=== PATIENT | male | born 1950 | race African-American/Black ===

== ENCOUNTER 2016-11-20 12:45 | Observation (INO) | payer OTHER ==
[2016-11-20 12:57] VITALS: BMI 28.4
--- NOTE | 2016-11-20 14:23 | PDOC ---
History of Present Illness - General Chief Complaint: Pain Stated Complaint: SWOLLEN RT HAND/ FEET Time Seen by Provider: 11/20/16 13:56 Past History - Past Medical History Allergies/Adverse Reactions: Allergies Allergy/AdvReac Type Severity Reaction Status Date / Time Penicillins Allergy Vomiting Verified 11/20/16 12:58 Home Medications: Ambulatory Orders Cholecalciferol (Vitamin D3) [Vitamin D3 -] 1,000 unit PO DAILY 03/14/16 Amlodipine Besylate/Benazepril [Lotrel 5-40 mg Capsule] 1 each PO DAILY Atorvastatin Ca [Lipitor] 40 mg PO DAILY 03/19/16 Colchicine 0.6 mg PO DAILY 03/19/16 Lisinopril 5 mg PO DAILY 03/19/16 Multivitamins [Tab-A-Vit -] 1 tab PO DAILY 03/19/16 CVA: No Dementia: No Diabetes: No HTN: Yes Hypercholesterolemia: Yes Other medical history: GOUT - Surgical History Abdominal Surgery: Yes (HERNIA) Orthopedic Surgery: Yes (left knee ) - Family Disease History Family Disease History: Other: Father (drowned when he was a child ), Mother ( no medical problems per pt. ) - Psycho/Social/Smoking Cessation Hx Anxiety: No Suicidal Ideation: No Smoking History: Former smoker Have you smoked in the past 12 months: No Number of Cigarettes Smoked Daily: 2 If you are a former smoker, when did you quit?: 15 YRS AGO Information on smoking cessation initiated: No Hx Alcohol Use: Yes (SOCIAL) Drug/Substance Use Hx: No Substance Use Type: None *Physical Exam - Vital Signs Last Vital Signs Temp Pulse Resp BP Pulse Ox 98.0 F 119 H 20 137/76 99 11/20/16 12:54 11/20/16 12:54 11/20/16 12:54 11/20/16 12:54 11/20/16 12:54
[2016-11-20] MEDS ORDERED: KETOROLAC TROMETHAMINE 30 MG/1 ML VIAL IVPUSH ONE (16:02)
--- NOTE | 2016-11-20 16:27 | PDOC ---
History of Present Illness - History of Present Illness Initial Comments: 11/20/16 17:27 The patient is a 66 yo M with sig pmhx of hypertension, borderline diabetes, and gout who presents to the emergency department with pain and swelling of the left big toe and right hand for the last 4 days. The patient states his pain is getting progressively worse. The patient states the redness and pain on his hand is radiating to his right wrist and this is now limited his range of motion of the wrist. The patient denies any injury or trauma to either his right hand or left toe. He denies any numbness or tingling in either extremity. He denies chest pain, SOB, nausea, vomiting, diarrhea. The patient denies any recent illness, fevers, or chills. He has not taken anything for his pain. <Marta Parker - Last Filed: 11/20/16 17:27> - General History Source: Patient, Old Records Exam Limitations: No Limitations <Rhonda Taylor - Last Filed: 11/20/16 19:15> - General Chief Complaint: Pain Stated Complaint: SWOLLEN RT HAND/ FEET Time Seen by Provider: 11/20/16 13:56 Past History <Marta Parker - Last Filed: 11/20/16 17:27> - Past Medical History CVA: No Dementia: No Diabetes: No HTN: Yes Hypercholesterolemia: Yes Other medical history: GOUT - Surgical History Abdominal Surgery: Yes (HERNIA) Orthopedic Surgery: Yes (left knee ) - Family Disease History Family Disease History: Other: Father (drowned when he was a child ), Mother ( no medical problems per pt. ) - Psycho/Social/Smoking Cessation Hx Anxiety: No Suicidal Ideation: No Smoking History: Former smoker Have you smoked in the past 12 months: No Number of Cigarettes Smoked Daily: 2 If you are a former smoker, when did you quit?: 15 YRS AGO Information on smoking cessation initiated: No Hx Alcohol Use: Yes (SOCIAL) Drug/Substance Use Hx: No Substance Use Type: None <Rhonda Taylor - Last Filed: 11/20/16 19:15> - Past Medical History Allergies/Adverse Reactions: Allergies Allergy/AdvReac Type Severity Reaction Status Date / Time Penicillins Allergy Vomiting Verified 11/20/16 12:58 Home Medications: Ambulatory Orders Cholecalciferol (Vitamin D3) [Vitamin D3 -] 1,000 unit PO DAILY 03/14/16 Amlodipine Besylate/Benazepril [Lotrel 5-40 mg Capsule] 1 each PO DAILY Atorvastatin Ca [Lipitor] 40 mg PO DAILY 03/19/16 Colchicine 0.6 mg PO DAILY 03/19/16 Lisinopril 5 mg PO DAILY 03/19/16 Multivitamins [Tab-A-Vit -] 1 tab PO DAILY 03/19/16 Review of Systems - Review of Systems Able to Perform ROS?: Yes Comments:: 11/20/16 17:27 GENERAL/CONSTITUTIONAL: No fever or chills. No weakness. HEAD, EYES, EARS, NOSE AND THROAT: No change in vision. No ear pain or discharge. No sore throat. CARDIOVASCULAR: No chest pain or shortness of breath. RESPIRATORY: No cough, wheezing, or hemoptysis. GASTROINTESTINAL: No nausea, vomiting, diarrhea or constipation. GENITOURINARY: No dysuria, frequency, or change in urination. MUSCULOSKELETAL: No joint or muscle swelling or pain. No neck or back pain. SKIN: +Right hand and left big toe redness and swelling. NEUROLOGIC: No headache, vertigo, loss of consciousness, or change in strength/ sensation. ENDOCRINE: No increased thirst. No abnormal weight change. HEMATOLOGIC/LYMPHATIC: No anemia, easy bleeding, or history of blood clots. ALLERGIC/IMMUNOLOGIC: No hives or skin allergy. <Marta Parker - Last Filed: 11/20/16 17:27> *Physical Exam - Vital Signs Last Vital Signs Temp Pulse Resp BP Pulse Ox 98.0 F 119 H 20 137/76 99 11/20/16 12:54 11/20/16 12:54 11/20/16 12:54 11/20/16 12:54 11/20/16 12:54 - Physical Exam Comments: 11/20/16 17:27 GENERAL: Awake, alert, and fully oriented, in no acute distress HEAD: No signs of trauma EYES: PERRLA, EOMI, sclera anicteric, conjunctiva clear ENT: Auricles normal inspection, hearing grossly normal, nares patent, oropharynx clear without exudates. Moist mucosa NECK: Normal ROM, supple, no lymphadenopathy, JVD, or masses LUNGS: Breath sounds equal, clear to auscultation bilaterally. No wheezes, and no crackles HEART: Regular rate and rhythm, normal S1 and S2, no murmurs, rubs or gallops ABDOMEN: Soft, nontender, normoactive bowel sounds. No guarding, no rebound. No masses EXTREMITIES: Fingers are contracted. +Swelling of the right hand MCP joints of the 1, 2, 3 digits with some swelling of the digits which are mildly erythematous and tender to palpation which extends to the wrist. There is limited ROM of the wrist secondary to pain. He cannot actively move the wrist but is able to move passively. Radial pulses are 2+. The Left toe is mildly erythematous and warm to touch with mild tenderness to palpation, no limited ROM. NEUROLOGICAL: Cranial nerves II through XII grossly intact. Normal speech, normal gait SKIN: Warm, Dry, normal turgor, no rashes or lesions noted. <Marta Parker - Last Filed: 11/20/16 17:27> - Vital Signs Last Vital Signs Temp Pulse Resp BP Pulse Ox 98.0 F 119 H 20 137/76 99 11/20/16 12:54 11/20/16 12:54 11/20/16 12:54 11/20/16 12:54 11/20/16 12:54 <Rhonda Taylor - Last Filed: 11/20/16 19:15> ED Treatment Course - LABORATORY CBC & Chemistry Diagram: 11/20/16 16:20 11/20/16 16:20 - ADDITIONAL ORDERS Additional order review: 11/20/16 16:20 RBC 4.77 MCV 86.9 MCHC 32.7 RDW 15.3 MPV 7.4 L Neutrophils % 82.7 Lymphocytes % 11.1 D Monocytes % 5.6 D Eosinophils % 0.1 D Basophils % 0.5 - Medications Given in the ED: ED Medications Discontinued Medications Generic Name Dose Route Start Last Admin Trade Name Freq PRN Reason Stop Dose Admin Ketorolac Tromethamine 30 mg 11/20/16 16:02 11/20/16 16:42 Toradol Injection - IVPUSH 11/20/16 16:03 30 mg ONCE ONE Administration <Marta Parker - Last Filed: 11/20/16 17:27> - LABORATORY CBC & Chemistry Diagram: 11/20/16 16:20 11/20/16 16:20 - RADIOLOGY Radiology Studies Ordered: Category Date Time Status WRIST W/HAND-RIGHT* [RAD] Stat Radiology 11/20/16 16:03 Ordered <Rhonda Taylor - Last Filed: 11/20/16 19:15> Medical Decision Making - Medical Decision Making 11/20/16 16:25 66-year-old male with history of borderline diabetes, hypertension and gout on allopurinol who presents the emergency department with 4 day history of right hand and wrist and left great toe pain, swelling and erythema. Differential diagnosis includes but is not limited to: Gout, cellulitis, arthritis, sepsis, fracture. Plan: 1. Plain films of right hand and wrist 2. Labs 3. Pain management 4. Observe and reevaluate 11/20/16 19:05 Addendum: The labs were reviewed and are remarkable for an elevated white blood cell count as well as an elevated ESR and CRP. Plain films show no fracture and no air in the soft tissue. The plan is to admit the patient for IV antibiotics and pain management. <Rhonda Taylor - Last Filed: 11/20/16 19:15> *DC/Admit/Observation/Transfer - Attestations Scribe Attestion: 11/20/16 17:28 Documentation prepared by Marta Parker, acting as medical csr for Rhonda Taylor MD. <Marta Parker - Last Filed: 11/20/16 17:27> - Discharge Dispostion Admit: Yes - Attestations Physician Attestion: 11/20/16 16:26 I, Dr. Rhonda Taylor, attest that the scribes documentation that appears above has been prepared under my direction and personally reviewed by me in its entirety. I confirmed that the note above accurately reflects all work, treatment, procedures, and medical decision-making performed by me. <Rhonda Taylor - Last Filed: 11/20/16 19:15> Diagnosis at time of Disposition: Gout of right hand, Cellulitis of right hand - Discharge Dispostion Condition at time of disposition: Stable - Referrals Referrals: Dixie Barragan MD [Primary Care Provider] -
[2016-11-20 16:29] LABS: BASOPHIL 0.5 % (0-2.0); EOSINOPHIL 0.1 % (0-4.5); MCH 28.4 pg (25.7-33.7); MCHC 32.7 g/dl (32.0-35.9); MEAN CELL VOLUME 86.9 fl (80-96); MEAN PLT VOLUME 7.4 fl (7.5-11.1); NEUTROPHILS 82.7 % (42.8-82.8); PLATELET COUNT 417 K/MM3 (134-434); RDW 15.3 % (11.9-15.9); WHITE BLOOD COUNT 15.6 K/mm3 (4.0-10.0)
[2016-11-20] MEDS ORDERED: KETOROLAC TROMETHAMINE 30 MG/1 ML VIAL ONE (16:41)
[2016-11-20 17:42] LABS: C-REACTIVE PROTEIN 10.4 MG/DL (0.00-0.3); CALCIUM 9.9 mg/dL (8.5-10.1); CREATININE 1.3 mg/dL (0.7-1.3)
[2016-11-20] MEDS ORDERED: CLINDAMYCIN IVPB 300 MG in DEXTROSE 5%-WATER - 48 ML IVPB ONE (18:39)
--- NOTE | 2016-11-20 21:21 | HP ---
CHIEF COMPLAINT: hand and foot pain PCP: ALEKS Barragan HISTORY OF PRESENT ILLNESS: This is a 66 year old male with a past medical history of HTN, DM, Gout, HLD who presented to the ED earlier today with a four day histroy of pain and swelling to left big toe and right hand. Pt states the pain and swelling in his hand has extended down to the wrist. Reports feeling much better since receiving toradol in the Ed. Denies any fever, chest pain, SOB, N/V/D. ER course was notable for: (1) Elevated ESR and CRP (2) WBC 15.6 (3) wrist and hand xrays without evidence of fracture Recent Travel: pt denies PAST MEDICAL HISTORY: HTN DM (recently diagnosed, diet controlled) Gout HLD PAST SURGICAL HISTORY: hernia repair L knee Social History: Smoking: quit Alcohol: occ, social Drugs: pt denies Family History: mother [place], unknown if she has medical problems father , drowned brother with gout and DM sister with medical problems but unknown what kind Allergies Penicillins Allergy (Verified 11/20/16 12:58) Vomiting HOME MEDICATIONS: 3 Medication Instructions Recorded Cholecalciferol (Vitamin D3) 1,000 unit PO DAILY 03/14/16 [Vitamin D3 -] Amlodipine Besylate/Benazepril 1 each PO DAILY 03/19/16 [Lotrel 5-40 mg Capsule] Atorvastatin Ca [Lipitor] 40 mg PO DAILY 03/19/16 Colchicine 0.6 mg PO DAILY 03/19/16 Lisinopril 5 mg PO DAILY 03/19/16 Multivitamins [Tab-A-Vit -] 1 tab PO DAILY 03/19/16 REVIEW OF SYSTEMS CONSTITUTIONAL: Absent: fever, chills, diaphoresis, generalized weakness, malaise, loss of appetite, weight change HEENT: Absent: rhinorrhea, nasal congestion, throat pain, throat swelling, difficulty swallowing, mouth swelling, ear pain, eye pain, visual changes CARDIOVASCULAR: Absent: chest pain, syncope, palpitations, irregular heart rate, lightheadedness , peripheral edema RESPIRATORY: Absent: cough, shortness of breath, dyspnea with exertion, orthopnea, wheezing, stridor, hemoptysis GASTROINTESTINAL: Absent: abdominal pain, abdominal distension, nausea, vomiting, diarrhea, constipation, melena, hematochezia GENITOURINARY: Absent: dysuria, frequency, urgency, hesitancy, hematuria, flank pain, genital pain MUSCULOSKELETAL: Present: arthralgia, joint swelling Absent: myalgia, back pain, neck pain SKIN: Absent: rash, itching, pallor HEMATOLOGIC/IMMUNOLOGIC: Absent: easy bleeding, easy bruising, lymphadenopathy, frequent infections ENDOCRINE: Absent: unexplained weight gain, unexplained weight loss, heat intolerance, cold intolerance NEUROLOGIC: Absent: headache, focal weakness or paresthesias, dizziness, unsteady gait, seizure, mental status changes, bladder or bowel incontinence PSYCHIATRIC: Absent: anxiety, depression, suicidal or homicidal ideation, hallucinations. PHYSICAL EXAMINATION Vital Signs - 24 hr 3 11/20/16 12:54 Temperature 98.0 F Pulse Rate 119 H Respiratory 20 Rate Blood Pressure 137/76 O2 Sat by Pulse 99 Oximetry (%) GENERAL: Awake, alert, and fully oriented, in no acute distress. HEAD: Normal with no signs of trauma. EYES: Pupils equal, round and reactive to light, extraocular movements intact, sclera anicteric, conjunctiva clear. No lid lag. EARS, NOSE, THROAT: Ears normal, nares patent, oropharynx clear without exudates. Moist mucous membranes. NECK: Normal range of motion, supple without lymphadenopathy, JVD, or masses. LUNGS: Breath sounds equal, clear to auscultation bilaterally. No wheezes, and no crackles. No accessory muscle use. HEART: Regular rate and rhythm, normal S1 and S2 without murmur, rub or gallop. ABDOMEN: Soft, nontender, not distended, normoactive bowel sounds, no guarding, no rebound, no masses. No hepatomegaly or splenomegaly. MUSCULOSKELETAL: Normal range of motion at all joints. No bony deformities or tenderness. No CVA tenderness. UPPER EXTREMITIES: 2+ pulses, warm, well-perfused. No cyanosis. No clubbing. Cap refill <2 seconds. Right 1st,2nd,3rd MIP joints with swelling, erythema, tenderness, decreased ROM. Warmth spreads up forearm but no streaking noted. LOWER EXTREMITIES: 2+ pulses, warm, well-perfused. No calf tenderness. L 1st toe PIP with swelling, tenderness, erythema NEUROLOGICAL: Cranial nerves II-XII intact. Normal speech. Normal gait. PSYCHIATRIC: Cooperative. Good eye contact. Appropriate mood and affect. SKIN: Warm, dry, normal turgor, no rashes or lesions noted. Laboratory Results - last 24 hr 3 11/20/16 11/20/16 11/20/16 16:20 16:20 16:20 WBC 15.6 H RBC 4.77 Hgb 13.6 Hct 41.4 MCV 86.9 MCHC 32.7 RDW 15.3 Plt Count 417 MPV 7.4 L Neutrophils % 82.7 Lymphocytes % 11.1 D Monocytes % 5.6 D Eosinophils % 0.1 D Basophils % 0.5 ESR 72 H Sodium 140 Potassium 4.0 Chloride 100 Carbon Dioxide 27 D Anion Gap 13 BUN 15 Creatinine 1.3 Random Glucose 104 D Calcium 9.9 C-Reactive Protein 10.4 H ASSESSMENT/PLAN: 66yM with PMH HTN, DM, Gout, HLD who presented to the ED with right hand and left toe pain. He is being admitted for observation for acute gout exacerbation. Acute gout - start naproxen 500mg BID - cont allopurinol - repeat ESR and CRP tomorrow am Leukocytosis - likely due to acute gout, doubt cellulitis - monitor WBC off antibiotics. HTN - cont lotrel, dc lisinopril (duplicate ADRIÁN therapy) - monitor BP and adjust dose PRN DM - cont diet control, A1C in AM. HLD - cont home lipitor DVT PPX - low risk, expected LOS <48h FEN - tolerating po fluids - Repeat labs in am - diabetic diet as tolerated. Dispo: Pt currently requires inpatient observation. Visit type - Emergency Visit Emergency Visit: Yes ED Registration Date: 11/20/16 Care time: The patient presented to the Emergency Department on the above date and was hospitalized for further evaluation of their emergent condition. - New Patient This patient is new to me today: Yes Date on this admission: 11/20/16 - Critical Care Critical Care patient: No
[2016-11-20] MEDS ORDERED: NAPROXEN 500 MG TABLET (FP) ONE (22:03)
[2016-11-20] MEDS: NAPROXEN 500 MG TABLET (FP) PO SCH (22:06)
[2016-11-21 08:26] LABS: BASOPHIL 0.4 % (0-2.0); EOSINOPHIL 0.6 % (0-4.5); MCH 29.5 pg (25.7-33.7); MCHC 34.1 g/dl (32.0-35.9); MEAN CELL VOLUME 86.6 fl (80-96); MEAN PLT VOLUME 7.5 fl (7.5-11.1); NEUTROPHILS 61.4 % (42.8-82.8); PLATELET COUNT 371 K/MM3 (134-434); RDW 15.1 % (11.9-15.9)
[2016-11-21 09:20] LABS: ALBUMIN 3.2 g/dl (3.4-5.0); CALCIUM 8.8 mg/dL (8.5-10.1); CREATININE 1.5 mg/dL (0.7-1.3); MAGNESIUM 2.1 mg/dL (1.8-2.4); PHOSPHOROUS 4.1 mg/dL (2.5-4.9)
[2016-11-21 09:23] LABS: BILIRUBIN,TOTAL 0.9 mg/dL (0.2-1.0); TOT PROT 6.6 g/dl (6.4-8.2)
[2016-11-21] MEDS ORDERED: SODIUM CHLORIDE 250 ML IV STA (09:56)
[2016-11-21] MEDS ORDERED: LISINOPRIL 20 MG TABLET (FP) PO SCH (10:00)
[2016-11-21] MEDS ORDERED: ATORVASTATIN CA 40 MG TABLET (FP) PO SCH ×2 (10:00→22:00)
[2016-11-21] MEDS ORDERED: MULTIVITAMINS (DAILY MVI) TABLET (FP) PO SCH (10:00)
[2016-11-21] MEDS ORDERED: ALLOPURINOL 100 MG TABLET (FP) PO SCH (10:00)
[2016-11-21] MEDS ORDERED: amLODIPine BESYLATE 5 MG TABLET (FP) PO SCH (10:00)
[2016-11-21] MEDS ORDERED: PATIENT'S OWN MEDICATION (NON-FORMULARY) (Amlodipine Besylate/Benazepril [Lotrel 5-40 Mg C PO SCH (10:00)
[2016-11-21] MEDS ORDERED: CHOLECALCIFEROL (VITAMIN D3) 1,000 UNIT TABLET (FP) PO SCH (10:00)
[2016-11-21] MEDS ORDERED: amLODIPine BESYLATE 10 MG TABLET (FP) PO SCH (10:15)
[2016-11-21] MEDS ORDERED: SODIUM CHLORIDE 500 ML IV STA (10:19)
[2016-11-21 10:55] LABS: URIC ACID 6.6 mg/dL (2.6-7.2)
[2016-11-21] MEDS: NAPROXEN 500 MG TABLET (FP) PO SCH (12:21)
--- NOTE | 2016-11-21 12:22 | PN ---
Physical Exam: SUBJECTIVE: Patient seen and examined. He states his right hand feels better, is able to move his fingers freely, but still with some discomfort. Denies pain or discomfort of right foot. He further denies any chest pain or shortness of breath. I called PCP and reconciled medications (see below). OBJECTIVE: GENERAL: Awake, alert, and fully oriented, in no acute distress. HEAD: Normal with no signs of trauma. EYES: Pupils equal, round and reactive to light EARS, NOSE, THROAT: Ears normal, nares patent, oropharynx clear without exudates. Moist mucous membranes. NECK: Normal range of motion LUNGS: Breath sounds equal, clear to auscultation bilaterally. HEART: Regular rate and rhythm, ABDOMEN: Soft, nontender, not distended, normoactive bowel sounds, UPPER EXTREMITIES:. Right 1st,2nd,3rd MIP joints with swelling, + erythema, tenderness, some pain, can move right hand. Warm hand up to forearm, no streaking, no redness, skin intact LOWER EXTREMITIES: 2+ pulses, warm, well-perfused. No calf tenderness. Right 1st toe joint with swelling, tenderness, erythema, able to ambulate NEUROLOGICAL: Normal speech. Normal gait. PSYCHIATRIC:Appropriate mood and affect. Laboratory Results - last 24 hr 11/21/16 11/21/16 11/21/16 06:20 06:20 06:20 WBC 12.0 H RBC 3.96 L Hgb 11.7 D Hct 34.3 L D MCV 86.6 MCHC 34.1 RDW 15.1 Plt Count 371 MPV 7.5 Neutrophils % 61.4 D Lymphocytes % 28.8 D Monocytes % 8.8 Eosinophils % 0.6 D Basophils % 0.4 ESR Sodium 139 Potassium 3.6 Chloride 104 Carbon Dioxide 24 Anion Gap 11 BUN 24 H D Creatinine 1.5 H Creat Clearance w eGFR 46.54 Random Glucose 93 Hemoglobin A1c % Uric Acid 6.6 Calcium 8.8 Phosphorus 4.1 Magnesium 2.1 Total Bilirubin 0.9 AST 14 L D ALT 25 Alkaline Phosphatase 133 H D C-Reactive Protein 11.5 H D Total Protein 6.6 Albumin 3.2 L D 11/21/16 11/21/16 11/21/16 06:20 06:20 06:20 WBC RBC Hgb Hct MCV MCHC RDW Plt Count MPV Neutrophils % Lymphocytes % Monocytes % Eosinophils % Basophils % ESR 75 H Sodium Potassium Chloride Carbon Dioxide Anion Gap BUN Creatinine Creat Clearance w eGFR Random Glucose Hemoglobin A1c % 6.5 H Uric Acid Cancelled Calcium Phosphorus Magnesium Total Bilirubin AST ALT Alkaline Phosphatase C-Reactive Protein Total Protein Albumin Active Medications Generic Name Dose Route Start Last Admin Trade Name Lila PRN Reason Stop Dose Admin Allopurinol 100 mg 11/21/16 10:00 Zyloprim - PO DAILY SUZANNE Amlodipine Besylate 10 mg 11/21/16 10:15 Norvasc - PO DAILY SUZANNE Atorvastatin Calcium 40 mg 11/21/16 22:00 Lipitor - PO HS SUZANNE Cholecalciferol 1,000 unit 11/21/16 10:00 Vitamin D3 - PO DAILY [facility] Sodium Chloride 500 mls @ 500 mls/hr 11/21/16 10:19 Normal Saline - IV 11/21/16 11:18 ASDIR STA Multivitamins/Minerals/Vitamin C 1 tab 11/21/16 10:00 Tab-A-Vit - PO DAILY SUZANNE Naproxen 500 mg 11/20/16 22:00 11/20/16 22:06 Naprosyn - PO 500 mg BID SUZANNE Administration Medication Reconciled with PCP: Called PCP group [facility] [place] [phone]. Patient is on: Atorvastin 40mg daily Amlodopine 10mg daily Lisinopril 5mg daily Allopurinol 100mg daily ASSESSMENT/PLAN: Patient is a 66 year old male with a significant past medical history of hypertension, diabetes, gout and high cholesterol. He presented to the ED on with a 4 day history of pain and swelling to his right great tow and right hand. Pt reports feeling better today after receiving the Toradol and is able to move his hand better. He denies any fevers, chest pain or shortness of breath. Muscular/Skeletal Gout - acute exacerbation Assessment/Plan: Started on Naproxen 500mg BID and home dose of Allopurinol 100mg ESR 75, CRP 11.5 Pt to follow up with his PCP tomorrow at 3pm. Will refer to [facility]older also Leukocytosis - acute Assessment/Plan: Mostl likely due to gout, no redness, WBC improving, afebrile Received Clindamycin in ER Acute Kidney Injury Assessment/Plan: Noted to have BROOK on repeat CMP, BUN 27/Creat 1.5. Repeat labs do not reflect the NS bolus previously ordered. He is now receiving IV bolus of NS 500cc and will have repeat BMP tomorrow with PCP. Cardiology: Hypertension - chronic Assessment/Plan: Continue Amlodopine 10mg daily Hold Lisinopril secondary to BROOK Will follow up with PCP Hyperlipidemia - chronic Assessment/Plan: On Lipitor Endocrine: Diabetes Mellitus - chronic Assessment/Plan: Control on diabetic diet Disposition: Discharge home with close follow up with PCP. Has appointment tomorrow at 3pm. Full Code. Visit type - Emergency Visit Emergency Visit: Yes ED Registration Date: 11/20/16 Care time: The patient presented to the Emergency Department on the above date and was hospitalized for further evaluation of their emergent condition. - New Patient This patient is new to me today: Yes Date on this admission: 11/21/16 - Critical Care Critical Care patient: No - Discharge Referral Referred to [facility] Med P.C.: No
[2016-11-21 13:58] VITALS: TEMP 97.9
--- NOTE | 2016-11-21 15:27 | EKG ---
Test Reason : Blood Pressure : / mmHG Vent. Rate : 072 BPM Atrial Rate : 072 BPM P-R Int : 202 ms QRS Dur : 094 ms QT Int : 406 ms P-R-T Axes : 049 -12 006 degrees QTc Int : 444 ms SINUS RHYTHM WITH PREMATURE ATRIAL COMPLEXES OTHERWISE NORMAL ECG WHEN COMPARED WITH ECG OF 19-DEC-2015 01:19, PREMATURE ATRIAL COMPLEXES ARE NOW PRESENT VENT. RATE HAS DECREASED BY 35 BPM Confirmed by RUSSEL GUERRERO, SNEHA ([id number]) on 11/21/2016 3:27:39 PM Referred By: Confirmed By:SNEHA GOODE MD
[2016-11-21 15:48] LABS: ALBUMIN 3.2 g/dl (3.4-5.0); BILIRUBIN,TOTAL 0.4 mg/dL (0.2-1.0); CALCIUM 8.8 mg/dL (8.5-10.1); CREATININE 1.5 mg/dL (0.7-1.3); TOT PROT 6.6 g/dl (6.4-8.2)
[2016-11-21 15:49] VITALS: BP 121/70; PULSE 88
--- NOTE | 2016-11-21 16:42 | DS ---
Physical Exam: SUBJECTIVE: Patient seen and examined. He states his right hand feels better, is able to move his fingers freely, but still with some discomfort. Denies pain or discomfort of right foot. He further denies any chest pain or shortness of breath. OBJECTIVE: GENERAL: Awake, alert, and fully oriented, in no acute distress. HEAD: Normal with no signs of trauma. EYES: Pupils equal, round and reactive to light EARS, NOSE, THROAT: Ears normal, nares patent, oropharynx clear without exudates. Moist mucous membranes. NECK: Normal range of motion LUNGS: Breath sounds equal, clear to auscultation bilaterally. HEART: Regular rate and rhythm, ABDOMEN: Soft, nontender, not distended, normoactive bowel sounds, UPPER EXTREMITIES:. Right 1st,2nd,3rd MIP joints with swelling, + erythema, tenderness, some pain, can move right hand. Warm hand up to forearm, no streaking, no redness, skin intact, no signs of infection. LOWER EXTREMITIES: 2+ pulses, warm, well-perfused. No calf tenderness. Right 1st toe joint with swelling, tenderness, erythema, able to ambulate, no signs of infection. NEUROLOGICAL: Normal speech. Normal gait. PSYCHIATRIC:Appropriate mood and affect. Vital Signs Period Temp Pulse Resp BP Sys/Byrd Pulse Ox Last 24 Hr 97.9 F-97.9 F 77-88 18-18 121-125/68-70 98 PHYSICAL EXAM LABS Laboratory Results - last 24 hr 11/21/16 11/21/16 11/21/16 06:20 06:20 06:20 WBC 12.0 H RBC 3.96 L Hgb 11.7 D Hct 34.3 L D MCV 86.6 MCHC 34.1 RDW 15.1 Plt Count 371 MPV 7.5 Neutrophils % 61.4 D Lymphocytes % 28.8 D Monocytes % 8.8 Eosinophils % 0.6 D Basophils % 0.4 ESR Sodium 139 Potassium 3.6 Chloride 104 Carbon Dioxide 24 Anion Gap 11 BUN 24 H D Creatinine 1.5 H Creat Clearance w eGFR 46.54 POC Glucometer Random Glucose 93 Hemoglobin A1c % Uric Acid 6.6 Calcium 8.8 Phosphorus 4.1 Magnesium 2.1 Total Bilirubin 0.9 AST 14 L D ALT 25 Alkaline Phosphatase 133 H D C-Reactive Protein 11.5 H D Total Protein 6.6 Albumin 3.2 L D 11/21/16 11/21/16 11/21/16 06:20 06:20 06:20 WBC RBC Hgb Hct MCV MCHC RDW Plt Count MPV Neutrophils % Lymphocytes % Monocytes % Eosinophils % Basophils % ESR 75 H Sodium Potassium Chloride Carbon Dioxide Anion Gap BUN Creatinine Creat Clearance w eGFR POC Glucometer Random Glucose Hemoglobin A1c % 6.5 H Uric Acid Cancelled Calcium Phosphorus Magnesium Total Bilirubin AST ALT Alkaline Phosphatase C-Reactive Protein Total Protein Albumin 11/21/16 11/21/16 12:42 14:27 WBC RBC Hgb Hct MCV MCHC RDW Plt Count MPV Neutrophils % Lymphocytes % Monocytes % Eosinophils % Basophils % ESR Sodium 140 Potassium 3.7 Chloride 101 Carbon Dioxide 26 Anion Gap 13 BUN 27 H Creatinine 1.5 H Creat Clearance w eGFR 46.54 POC Glucometer [id number] Random Glucose 126 H D Hemoglobin A1c % Uric Acid Calcium 8.8 Phosphorus Magnesium Total Bilirubin 0.4 D AST 46 H D ALT 37 D Alkaline Phosphatase 163 H D C-Reactive Protein Total Protein 6.6 Albumin 3.2 L HOSPITAL COURSE: Date of Admission:11/20/16 Date of Discharge: 11/21/16 ASSESSMENT/PLAN: Patient is a 66 year old male with a significant past medical history of hypertension, diabetes, gout and high cholesterol. He presented to the ED on with a 4 day history of pain and swelling to his right great tow and right hand. Pt reports feeling better today after receiving the Toradol and is able to move his hand better. He denies any fevers, chest pain or shortness of breath. I called his PCP [phone] @ [facility] and made appointment for followup tomorrow at 3pm. Muscular/Skeletal Gout - acute exacerbation Assessment/Plan: Started on Naproxen 500mg BID and home dose of Allopurinol 100mg ESR 75, CRP 11.5 Pt to follow up with his PCP tomorrow at 3pm. Will need to see montessori paraprofessional also Leukocytosis - acute Assessment/Plan: Mostl likely due to gout, no redness, WBC improving, afebrile Received Clindamycin in ER No signs of infection Blood cultures pending Acute Kidney Injury Assessment/Plan: Noted to have BROOK on repeat CMP, BUN 27/Creat 1.5. Repeat labs do not reflect the NS bolus previously ordered. He is now receiving IV bolus of NS 500cc before d/c and will have repeat BMP tomorrow with PCP. Cardiology: Hypertension - chronic Assessment/Plan: Continue Amlodopine 10mg daily Hold Lisinopril secondary to BROOK Will follow up with PCP Hyperlipidemia - chronic Assessment/Plan: On Lipitor Endocrine: Diabetes Mellitus - chronic Assessment/Plan: Control on diabetic diet Disposition: Discharge home with close follow up with PCP. Has appointment tomorrow at 3pm. Minutes to complete discharge: 60 Discharge Summary Reason For Visit: GOUT OF RIGHT HAND; CELLULITIS OF RIGHT HAND Current Active Problems Cellulitis of right hand (Acute) Gout of right hand (Acute) Condition: Stable - Instructions Diet, Activity, Other Instructions: WE MADE AN APPOINTMENT WITH YOUR PCP TOMORROW AT 3PM. FOR FOLLOW UP. PLEASE CHECK BUN/CREATININE LEVELS WELL ESR AND CRP WHICH WERE ALSO ELEVATED BUN: 27, CREATININE 1.5 , ESR 75, CRP 11.5 AMLODOPINE INCREASED TO 10MG DAILY, HOLD LISINOPRIL DUE TO ELEVATED BUN/ CREATININE RECHECK BLOOD PRESSURE WILL ALSO NEED REFERRAL TO A NATIONAL SALES DIRECTOR. THANK YOU.. GAYE ROA NP [facility] Referrals: Dixie Barragan MD [Primary Care Provider] - - Home Medications Comprehensive Discharge Medication List: Ambulatory Orders Cholecalciferol (Vitamin D3) [Vitamin D3 -] 1,000 unit PO DAILY 03/14/16 Amlodipine Besylate/Benazepril [Lotrel 5-40 mg Capsule] 1 each PO DAILY Atorvastatin Ca [Lipitor] 40 mg PO DAILY 03/19/16 Colchicine 0.6 mg PO DAILY 03/19/16 Lisinopril 5 mg PO DAILY 03/19/16 Multivitamins [Tab-A-Vit -] 1 tab PO DAILY 03/19/16 This patient is new to me today: Yes Date on this admission: 11/21/16 Emergency Visit: Yes ED Registration Date: 11/20/16 Care time: The patient presented to the Emergency Department on the above date and was hospitalized for further evaluation of their emergent condition. Critical Care patient: No - Discharge Referral Referred to [facility] No
== END 2016-11-21 16:13 | disposition home or self-care (01) ==
LOC: JERFT 12:45 → JER 12:45 → JERBED 19:33
PROVIDERS: ADMIT Internal Medicine; ATTEND Nurse Practitioner Family
DX: M10.9 Gout, unspecified (principal); E11.9 Type 2 diabetes mellitus without complications; E78.5 Hyperlipidemia, unspecified; I10 Essential (primary) hypertension; D72.828 Other elevated white blood cell count
CPT/HCPCS: 36415; 71010-TC; 73110-TC-RT; 73130-TC-RT; 80048; 80053; 83036; 83735; 84100; 84550; 85025; 85651; 86140; 87040; 93005; 93010; 99284-25; G0378

== ENCOUNTER 2017-10-06 12:16 | Emergency (ER) | payer OTHER ==
[2017-10-06 12:20] VITALS: BMI 25.1
--- NOTE | 2017-10-06 13:25 | PDOC ---
History of Present Illness <Clayton Borrero - Last Filed: 10/06/17 16:03> - General History Source: Patient Exam Limitations: No Limitations - History of Present Illness Initial Comments: 10/06/17 13:54 The patient is a 66 year old male, with a significant past medical history of hypertension, hyperlipidemia, diabetes(under control without meds), and gout, who presents to the emergency department complaining of foreign body in throat for approximately 3 days. The patient reports eating barbeque chicken on Friday, when suddenly he felt the piece remain stuck in his throat and feels as if he is choking. Patient reports associated chest discomfort. Patient reports attempting to eat a soft piece of cake to see if the chicken had gone down, but patient states he was unable to tolerate it and experienced an episode of emesis(nonbloody/nonbilious). Patient reports he is able to tolerate fluids very slowly. He denies any shortness of breath, diaphoresis, palpitations , or lower extremity edema. He denies any fever, chills, cough, headache, or dizziness. He denies any abdominal pain, nausea, vomiting, diarrhea, constipation, or changes in urination. He denies any recent travel or sick contacts. Allergies: Penicillins Past Surgical History: Hernia repair, left knee replacement Social History: Former smoker. Social ETOH use. No recreational drug use. PCP: Dr. Barragan <Fauzia Putnam - Last Filed: 10/06/17 18:38> - General Chief Complaint: Choking Sensation Stated Complaint: FOREIGN BODY (FB) Time Seen by Provider: 10/06/17 13:24 Past History - Past Medical History CVA: No COPD: No Dementia: No Diabetes: Yes (BORDERLINE) HTN: Yes Hypercholesterolemia: Yes - Surgical History Abdominal Surgery: Yes (HERNIA) Orthopedic Surgery: Yes (left knee ) - Family Disease History Family Disease History: Other: Father (drowned when he was a child ), Mother ( no medical problems per pt. ) - Suicide/Smoking/Psychosocial Hx Smoking History: Former smoker Have you smoked in the past 12 months: No Number of Cigarettes Smoked Daily: 0 If you are a former smoker, when did you quit?: many years ago Information on smoking cessation initiated: No Hx Alcohol Use: Yes (SOCIAL) Drug/Substance Use Hx: No Substance Use Type: None Hx Substance Use Treatment: No <Clayton Borrero - Last Filed: 10/06/17 16:03> <Fauzia Putnam - Last Filed: 10/06/17 18:38> - Past Medical History Allergies/Adverse Reactions: Allergies Allergy/AdvReac Type Severity Reaction Status Date / Time Penicillins Allergy Vomiting Verified 10/06/17 12:17 Home Medications: Ambulatory Orders Atorvastatin Ca [Lipitor] 40 mg PO DAILY 03/19/16 Multivitamins [Multivit ([facility] Formulary)] 1 tab PO DAILY 03/19/16 Allopurinol [Zyloprim -] 100 mg PO DAILY #30 tablet 11/21/16 Amlodipine Besylate [Norvasc -] 10 mg PO DAILY #30 tablet 11/21/16 Naproxen [Naprosyn -] 500 mg PO BID tablet 11/21/16 Review of Systems - Review of Systems Able to Perform ROS?: Yes Comments:: 10/06/17 13:54 GENERAL/CONSTITUTIONAL: No fever or chills. No weakness. HEAD, EYES, EARS, NOSE AND THROAT: No change in vision. No ear pain or discharge. No sore throat. CARDIOVASCULAR: Yes chest discomfort. No shortness of breath. RESPIRATORY: Yes choking on a piece of chicken, food stuck in throat. No cough, wheezing, or hemoptysis. GASTROINTESTINAL: Yes nausea, vomiting. No diarrhea or constipation. GENITOURINARY: No dysuria, frequency, or change in urination. MUSCULOSKELETAL: No joint or muscle swelling or pain. No neck or back pain. SKIN: No rash NEUROLOGIC: No headache, vertigo, loss of consciousness, or change in strength/ sensation. ENDOCRINE: No increased thirst. No abnormal weight change. HEMATOLOGIC/LYMPHATIC: No anemia, easy bleeding, or history of blood clots. ALLERGIC/IMMUNOLOGIC: No hives or skin allergy. <Fauzia Putnam - Last Filed: 10/06/17 18:38> *Physical Exam - Vital Signs Last Vital Signs Temp Pulse Resp BP Pulse Ox 98 F 68 18 133/70 96 10/06/17 12:18 10/06/17 13:09 10/06/17 12:18 10/06/17 12:18 10/06/17 13:09 <Clayton Borrero - Last Filed: 10/06/17 16:03> - Vital Signs Last Vital Signs Temp Pulse Resp BP Pulse Ox 98 F 68 18 133/70 96 10/06/17 12:18 10/06/17 13:09 10/06/17 12:18 10/06/17 12:18 10/06/17 13:09 - Physical Exam Comments: 10/06/17 13:54 GENERAL: Awake, alert, and fully oriented, in no acute distress HEAD: No signs of trauma EYES: PERRLA, EOMI, sclera anicteric, conjunctiva clear ENT: Auricles normal inspection, hearing grossly normal, nares patent, oropharynx clear without exudates. Moist mucosa NECK: Normal ROM, supple, no lymphadenopathy, JVD, or masses LUNGS: Breath sounds equal, clear to auscultation bilaterally. No wheezes, and no crackles HEART: Regular rate and rhythm, normal S1 and S2, no murmurs, rubs or gallops ABDOMEN: Soft, nontender, normoactive bowel sounds. No guarding, no rebound. No masses EXTREMITIES: Normal range of motion, no edema. No clubbing or cyanosis. No cords, erythema, or tenderness NEUROLOGICAL: Cranial nerves II through XII grossly intact. Normal speech, normal gait SKIN: Warm, Dry, normal turgor, no rashes or lesions noted. <Fauzia Putnam - Last Filed: 10/06/17 18:38> Heart Score/ECG Review - ECG Intrepretation Comment:: 10/06/17 18:38 Vent Rate: 87 bpm IMPRESSION: Normal sinus rhythm. <Fauzia Putnam - Last Filed: 10/06/17 18:38> ED Treatment Course - LABORATORY CBC & Chemistry Diagram: 10/06/17 13:45 10/06/17 13:45 <Clayton Borrero - Last Filed: 10/06/17 16:03> - LABORATORY CBC & Chemistry Diagram: 10/06/17 13:45 10/06/17 13:45 - RADIOLOGY Radiograph Interpretation: 10/06/17 16:05 EXAM: CXR INTERPRETED BY: Dr. Lloyd REVIEWED BY: Dr. Borrero IMPRESSION: No evidence of radiopaque foreign body overlying the chest. <Fauzia Putnam - Last Filed: 10/06/17 18:38> *DC/Admit/Observation/Transfer - Discharge Dispostion Admit: No - Attestations Physician Attestion: 10/06/17 13:25 I, Dr. Clayton Borrero, attest that this document has been prepared under my direction and personally reviewed by me in its entirety. I further attest, that it accurately reflects all work, treatment, procedures and medical decision -making performed by me. <Clayton Borrero - Last Filed: 10/06/17 16:03> - Attestations Scribe Attestion: 10/06/17 13:55 Documentation prepared by Fauzia Putnam, acting as medical certification specialist for Clayton Borrero DO. <Fauzia Putnam - Last Filed: 10/06/17 18:38> Diagnosis at time of Disposition: Foreign body sensation in throat - Discharge Dispostion Disposition: HOME Condition at time of disposition: Improved - Referrals Referrals: Dixie Barragan MD [Primary Care Provider] - - Patient Instructions Printed Discharge Instructions: DI for Esophageal Stricture Additional Instructions: Mr Cowart..... You need to see a banjo repair person. Dr. Rm is economic specialist, [phone]. Eat only soft foods until you see him. Return to us if worse or new symptoms occur. Best- Dr. Clayton Borrero - Post Discharge Activity
[2017-10-06] MEDS ORDERED: GLUCAGON 1 MG KIT IVPUSH ONE ×2 (13:26→15:37)
[2017-10-06 13:59] LABS: BASOPHIL 0.7 % (0-2.0); EOSINOPHIL 0.6 % (0-4.5); MCH 29.5 pg (25.7-33.7); MCHC 32.8 g/dl (32.0-35.9); MEAN CELL VOLUME 89.9 fl (80-96); NEUTROPHILS 71.3 % (42.8-82.8); PLATELET COUNT 366 K/MM3 (134-434); RDW 14.9 % (11.9-15.9); WHITE BLOOD COUNT 16.2 K/mm3 (4.0-10.0)
[2017-10-06] MEDS ORDERED: GlUCAGON HUMAN RECOMBINANT 1 MG/VIAL ONE ×2 (13:59→16:01)
[2017-10-06 14:20] LABS: INR 1.02 (0.82-1.09); PROTHROMBIN TIME (PATIENT) 11.5 SEC (9.98-11.88)
[2017-10-06 14:26] LABS: ALBUMIN 4.5 g/dl (3.4-5.0); ANION GAP 11 (8-16); BILIRUBIN,TOTAL 0.9 mg/dL (0.2-1.0); CALCIUM 10.1 mg/dL (8.5-10.1); CO2 28 mmol/L (21-32); CREATININE 1.5 mg/dL (0.7-1.3); GLUCOSE,RANDOM 122 mg/dL (74-106); SGOT/AST 10 U/L (15-37); SGPT/ALT 37 U/L (12-78); TOT PROT 8.2 g/dl (6.4-8.2)
[2017-10-06 14:28] LABS: ALK PHOS 113 U/L (45-117); CPK 113 IU/L (39-308); TROPONIN I < 0.02 ng/ml (0.00-0.05)
--- NOTE | 2017-10-06 16:08 | EKG ---
Test Reason : Blood Pressure : / mmHG Vent. Rate : 087 BPM Atrial Rate : 087 BPM P-R Int : 188 ms QRS Dur : 094 ms QT Int : 382 ms P-R-T Axes : 047 -22 021 degrees QTc Int : 459 ms NORMAL SINUS RHYTHM NORMAL ECG WHEN COMPARED WITH ECG OF 21-NOV-2016 05:56, PREMATURE ATRIAL COMPLEXES ARE NO LONGER PRESENT Confirmed by AIDEE OLSON MD ([id number]) on 10/06/2017 4:07:47 PM Referred By: Confirmed By:AIDEE OLSON MD
[2017-10-06 16:24] VITALS: BP 114/72; PULSE 71; TEMP 98.2
== END 2017-10-06 16:25 | disposition home or self-care (01) ==
LOC: JER 12:16
PROC: 3E033VG Introduction of Insulin into Peripheral Vein, Percutaneous Approach (ICD-10-PCS; principal; 2017-10-06)
DX: R09.89 Other specified symptoms and signs involving the circulatory and respiratory systems (principal); R73.03 Prediabetes; I10 Essential (primary) hypertension; E78.00 Pure hypercholesterolemia, unspecified; Z87.891 Personal history of nicotine dependence
CPT/HCPCS: 36415; 71020-TC; 80053; 82550; 84484; 85025; 85610; 93005; 93010; 96374; 96376; 99283-25

== ENCOUNTER 2019-02-12 00:44 | Observation (INO) | payer OTHER ==
--- NOTE | 2019-02-12 01:00 | PDOC ---
History of Present Illness - General Chief Complaint: Injury Stated Complaint: FALL Time Seen by Provider: 02/12/19 01:00 - History of Present Illness Initial Comments: 02/12/19 01:00 68 year old man with a significant past medical history of hypertension, hyperlipidemia, diabetes, and gout, who presents to the emergency department complaining of fall face forward onto concrete after drinking alcohol. The patient denies loss of consciousness, neck pain, chest pain, shortness of breath or injury to other extremitites. The patient denies abdominal pain, n/v/d /c. The patient does not take anti-coagulants. He denies changes in vision or ringing in the ears. Past History - Past Medical History Allergies/Adverse Reactions: Allergies Allergy/AdvReac Type Severity Reaction Status Date / Time Penicillins Allergy Vomiting Verified 10/06/17 12:17 Home Medications: Ambulatory Orders Atorvastatin Ca [Lipitor] 40 mg PO DAILY 03/19/16 Multivitamins [Multivit ([facility] Formulary)] 1 tab PO DAILY 03/19/16 Allopurinol [Zyloprim -] 100 mg PO DAILY #30 tablet 11/21/16 Amlodipine Besylate [Norvasc -] 10 mg PO DAILY #30 tablet 11/21/16 Naproxen [Naprosyn -] 500 mg PO BID tablet 11/21/16 CVA: No COPD: No Dementia: No Diabetes: Yes (BORDERLINE) HTN: Yes Hypercholesterolemia: Yes - Surgical History Abdominal Surgery: Yes (HERNIA) Orthopedic Surgery: Yes (left knee ) - Family Disease History Family Disease History: Other: Father (drowned when he was a child ), Mother ( no medical problems per pt. ) - Suicide/Smoking/Psychosocial Hx Smoking History: Unknown if ever smoked Have you smoked in the past 12 months: No Number of Cigarettes Smoked Daily: 0 If you are a former smoker, when did you quit?: many years ago Hx Alcohol Use: Yes Drug/Substance Use Hx: No Substance Use Type: None Hx Substance Use Treatment: No *Physical Exam - Vital Signs Last Vital Signs Temp Pulse Resp BP Pulse Ox 97.7 F 66 16 108/72 97 02/12/19 00:50 02/12/19 00:50 02/12/19 00:50 02/12/19 00:50 02/12/19 00:50 - Physical Exam Comments: 02/12/19 01:11 abrasions to forehead and nose scrape on L knee no spinal tenderness no c spine tenderness ED Treatment Course - LABORATORY CBC & Chemistry Diagram: 02/12/19 03:20 02/12/19 03:20 Medical Decision Making - Medical Decision Making 02/12/19 01:10 68 year old man with a significant past medical history of hypertension, hyperlipidemia, diabetes, and gout, who presents to the emergency department complaining of fall face forward onto concrete after drinking alcohol. The patient denies loss of consciousness, neck pain, chest pain, shortness of breath or injury to other extremitites. The patient denies abdominal pain, n/v/d /c. The patient does not take anti-coagulants. He denies changes in vision or ringing in the ears. ED Course: ddx ibnlt: trauma r/o fx vs intracranial bleed head ct, cxr, ekg, cervical ct cannot clear C spine with nexus 02/12/19 01:20 ekg: normal sinus 63 bpm 02/12/19 02:[address]: focal high attention in the L frontal cortical surface suggesting small cortical contustion Cervical Spine CT: without fx Patient with alcohol intoxication, so cannot assess focal neurological deficit 02/12/19 05:11 Patient reassessed found to have dilated R pupil Repeat Head CT done patient reports he had R lens surgery *DC/Admit/Observation/Transfer Diagnosis at time of Disposition: Brain contusion, Alcohol intoxication - Discharge Dispostion Condition at time of disposition: Fair Decision to Admit order: Yes - Referrals - Patient Instructions - Post Discharge Activity
[2019-02-12 02:05] VITALS: BMI 29.2
--- NOTE | 2019-02-12 03:09 | PDOC ---
Attending Attestation - Resident Resident Name: Elise Thomas - ED Attending Attestation I have performed the following: I have examined & evaluated the patient, The case was reviewed & discussed with the resident, I agree w/resident's findings & plan, Exceptions are as noted - HPI HPI: 02/12/19 07:36 68M pmh DM, HTN, HLD, gout here for intox fall, no FOOSH. Pt with visible frontal facial trauma. Pt is s/p R eye surgery for unknown reasons. - Physicial Exam PE: 02/12/19 07:37 Intox, arousable, Ox3 No tongue fasiculations, no tremors R pupil fixed, dilated L pupil appropriately reactive Neck supple LCTAB, normal wob RRR, no mrg Abd soft, nt, nd, no guarding, no rebound - Medical Decision Making 02/12/19 07:40 Intox trauma with +CT b and a masking neuro finding in surgically blown R pupil admit for serial neuro and repeat CT neuro, neurosurg eval
[2019-02-12 03:33] LABS: BASO % 0.4 % (0-2.0); EOS % 1.6 % (0-4.5); HEMATOCRIT 37.8 % (35.4-49); HEMOGLOBIN 12.8 GM/dL (11.7-16.9); LYMPH % 55.7 % (8-40); MCH 30.3 pg (25.7-33.7); MCHC 33.8 g/dl (32.0-35.9); MEAN CELL VOLUME 89.5 fl (80-96); MEAN PLT VOLUME 6.9 fl (7.5-11.1); MONO % 4.6 % (3.8-10.2); NEUT % 37.7 % (42.8-82.8); PLATELET COUNT 245 K/MM3 (134-434); RBC 4.22 M/mm3 (4.00-5.60); RDW 14.8 % (11.9-15.9); WHITE BLOOD COUNT 8.1 K/mm3 (4.0-10.0)
[2019-02-12 03:45] LABS: INR 0.99 (0.83-1.09); PROTHROMBIN TIME (PATIENT) 11.7 SEC (9.7-13.0)
[2019-02-12 03:48] LABS: ACTIVATED PTT 34.6 SECONDS (25.2-36.5)
[2019-02-12] MEDS ORDERED: BACITRACIN 0.9 GM PACKET ONE (03:55)
[2019-02-12 04:04] LABS: ALBUMIN 3.6 g/dl (3.4-5.0); ALK PHOS 103 U/L (45-117); ANION GAP 12 MMOL/L (8-16); BILIRUBIN,TOTAL 0.2 mg/dL (0.2-1); BLOOD UREA NITROGEN 14 mg/dL (7-18); CALCIUM 8.2 mg/dL (8.5-10.1); CHLORIDE 95 mmol/L (98-107); CO2 23 mmol/L (21-32); CREATININE 1.1 mg/dL (0.55-1.3); GLUCOSE,RANDOM 113 mg/dL (74-106); POTASSIUM 3.8 mmol/L (3.5-5.1); SGOT/AST 40 U/L (15-37); SGPT/ALT 49 U/L (13-61); SODIUM 130 mmol/L (136-145); TOT PROT 6.9 g/dl (6.4-8.2)
--- NOTE | 2019-02-12 05:03 | PN ---
Teaching Attending Note Name of Resident: Jenelle Escalante ATTENDING PHYSICIAN STATEMENT I saw and evaluated the patient. I reviewed the resident's note and discussed the case with the resident. I agree with the resident's findings and plan as documented. SUBJECTIVE: Patient is a 68 year old man with a PMH of hypertension, penicillin allergy, hyperlipidemia, borderline DM, and gout, who presents to the ER complaining of falling face forward onto concrete after drinking alcohol. Cannot remember any details about the fall and whether he broke his fall with his arms. The patient denies loss of consciousness, neck pain, chest pain, shortness of breath or injury to other extremities. The patient denies abdominal pain, nausea, vomiting , diarrhea or constipation. The patient does not take anti-coagulants. He denies changes in vision or ringing in the ears. He says he has fallen three times before and insists he was not drinking at those times and that his falls were attributed to hypertension. he has had three surgeries on his right eye but does not remember why. Vision is impaired in the right eye. He insists he is not an alcoholic and does not need help. Denies using any illicit drugs. OBJECTIVE: Somnolent but arousable. Vital Signs Period Temp Pulse Resp BP Sys/Byrd Pulse Ox Last 24 Hr 97.2 F-97.7 F 66-69 16-16 90-108/44-72 97-97 HEENT: No Jaundice, eye redness or discharge, dilated and fixed right pupil, EOMI on left eye. Impaired vision right eye. Normocephalic, Abrasions on forehead, bridge and tip of nose. External ears are normal and hearing is grossly intact. No nasal discharge. Neck: Supple, nontender. No palpable adenopathy or thyromegaly. No JVD Chest: Good effort. Clear to auscultation and percussion. Heart: Regular. No S3, rub or murmur Abdomen: Not distended, soft, nontender and no HSM. No rebound or guarding. Normal bowel sounds. Ext: Peripheral pulses intact. No leg edema. Left knee abrasion. No vertebral tenderness. Skin: Warm and dry. No petechiae, rash or ecchymosis. Neuro: Somnolent but arousable. Poor memmory. Oriented x3. CN 2-12 grossly intact. Sensation grossly intact in all four extremities and DTR are symmetric. Psych: Withdrawn. Appropriate affect. Good insight. Home Medications Medication Instructions Recorded Atorvastatin Ca [Lipitor] 40 mg PO DAILY 03/19/16 Multivitamins [Multivit ([facility] 1 tab PO DAILY 03/19/16 Formulary)] Allopurinol [Zyloprim -] 100 mg PO DAILY #30 tablet 11/21/16 Amlodipine Besylate [Norvasc -] 10 mg PO DAILY #30 tablet 11/21/16 Naproxen [Naprosyn -] 500 mg PO BID tablet 11/21/16 Abnormal Lab Results 02/12/19 02/12/19 03:20 03:20 MPV 6.9 L Neutrophils % 37.7 L D Lymphocytes % 55.7 H D Sodium 130 L Chloride 95 L Random Glucose 113 H Calcium 8.2 L AST 40 H ASSESSMENT AND PLAN: 1. Frontal cortical contusion and Alcohol intoxication - Preliminary head CT report shows a focal high attention in the left frontal cortical surface suggesting small cortical contustion. Will consult neurology and neurosurgery and repeat CT or get MRI in 6 hours. No fracture reported on cervical spine CT. EKG is NSR with no significant ST-T wave changes. Alcohol level pending. Will await neurology/neurosurgery input before decision on decadron and/or mannitol. Will implement [facility] librium alcohol withdrawal protocol and do neurochecks q 4 hours. Will withhold IV banana bag or hydration for now pending repeat CT since he is at risk for brain edema. Implement seizure, fall and aspiration precautions. Treat with thiamine and folic acid and monitor electrolytes (Ca,Mg, K,P). Counseled patient about abstaining from alcohol. Will consult university extension specialist and refer to alcohol detox upon discharge. 2. Borderline DM Check HbA1c and implement sliding scale insulin regimen. Provide comprehensive diabetes care with patient teaching and counseling about the importance of adherence to prescribed diabetes regimen, euglycemia, eye care and foot care. 3. Overweight Counseled on the risks associated with being overweight. Will provide patient all the necessary assistance, counseling and positive reinforcement to facilitate weight loss. Consult manager supply chain planning. 4. Hypertension - Restart outpatient antihypertensive drugs and revise regimen to ensure smooth [id number] good BP control. Nonpharmacologic measures to control hypertension like weight loss, salt restriction and exercise discussed. 5. DVT prophylaxis - SCD, TEDs. Avoid heparin pending repeat head CT. 6. Advance directives - Full code
--- NOTE | 2019-02-12 06:15 | HP ---
CHIEF COMPLAINT: s/p fall PCP: HISTORY OF PRESENT ILLNESS: 68 y/o M with PMH HTN, HLD, DM, gout, who presents to the ED s/p fall today. As per pt, he was ambulating after drinking four beers, when he tripped on concrete steps, hitting his head on concrete. States that he fell face first. During which, pt suffered an abrasion to his forehead, nose, and scraped his L knee. Denies LOC. His son witnessed the fall and brought him to the ED for further evaluation. Denies any recent illnesses, or current focal neuro deficits. Has suffered numerous falls in the past, however was not intoxicated during them. When asked whether pt would want alcohol counseling, states "I do not need it." Denies LYNN, fever, chills, SOB, chest pain or changes in urinary or bowel function. ER course was notable for: (1) intoxication (2) CTH focal high attenuation in L frontal cortical surface > with improvement. as per imaging interior design consultant. (3) 250 cc NS bolus x 1 Recent Travel: denies PAST MEDICAL HISTORY: as above PAST SURGICAL HISTORY: R eye sx x 2 Social History: Smoking: denies Alcohol: drinks beer, unable to quantify Drugs: denies Family History: denies Allergies Penicillins Allergy (Verified 10/06/17 12:17) Vomiting HOME MEDICATIONS: Home Medications Medication Instructions Recorded Atorvastatin Ca [Lipitor] 40 mg PO DAILY 03/19/16 Multivitamins [Multivit ([facility] 1 tab PO DAILY 03/19/16 Formulary)] Allopurinol [Zyloprim -] 100 mg PO DAILY #30 tablet 11/21/16 Amlodipine Besylate [Norvasc -] 10 mg PO DAILY #30 tablet 11/21/16 Naproxen [Naprosyn -] 500 mg PO BID tablet 11/21/16 medications need to be verified. pt did not know off hand the dosages or exact names. REVIEW OF SYSTEMS CONSTITUTIONAL: Absent: fever, chills, diaphoresis, generalized weakness, malaise, loss of appetite, weight change HEENT: Absent: rhinorrhea, nasal congestion, throat pain, throat swelling, difficulty swallowing, mouth swelling, ear pain, eye pain, visual changes CARDIOVASCULAR: Absent: chest pain, syncope, palpitations, irregular heart rate, lightheadedness , peripheral edema RESPIRATORY: Absent: cough, shortness of breath, dyspnea with exertion, orthopnea, wheezing, stridor, hemoptysis GASTROINTESTINAL: Absent: abdominal pain, abdominal distension, nausea, vomiting, diarrhea, constipation, melena, hematochezia GENITOURINARY: Absent: dysuria, frequency, urgency, hesitancy, hematuria, flank pain, genital pain MUSCULOSKELETAL: Absent: myalgia, arthralgia, joint swelling, back pain, neck pain SKIN: Absent: rash, itching, pallor HEMATOLOGIC/IMMUNOLOGIC: Absent: easy bleeding, easy bruising, lymphadenopathy, frequent infections ENDOCRINE: Absent: unexplained weight gain, unexplained weight loss, heat intolerance, cold intolerance NEUROLOGIC: Absent: headache, focal weakness or paresthesias, dizziness, unsteady gait, seizure, mental status changes, bladder or bowel incontinence PSYCHIATRIC: Absent: anxiety, depression, suicidal or homicidal ideation, hallucinations. PHYSICAL EXAMINATION Vital Signs - 24 hr 02/12/19 02/12/19 00:50 04:00 Temperature 97.7 F 97.2 F L Pulse Rate 66 Pulse Rate [ 69 Right Radial] Respiratory 16 16 Rate Blood Pressure 108/72 Blood Pressure 90/44 L [Right Arm] O2 Sat by Pulse 97 97 Oximetry (%) GENERAL: Lethargic. in no acute distress HEAD: +forehead abrasion, nose abrasion- not currently actively bleeding EYES: +R eye - sluggish response to light. EARS, NOSE, THROAT: Ears normal, nares patent, +nasal abrasion NECK: Normal range of motion, supple without lymphadenopathy LUNGS: Breath sounds equal, clear to auscultation bilaterally. No wheezes, and no crackles. No accessory muscle use. HEART: Regular rate and rhythm, normal S1 and S2 without murmur, rub or gallop. ABDOMEN: Soft, nontender, not distended, normoactive bowel sounds, no guarding, no rebound, no masses. LOWER EXTREMITIES: 2+ pt pulses, warm, well-perfused. NEUROLOGICAL: Cranial nerves II-XII intact. Able to move UE, LE. PSYCHIATRIC: Cooperative. Good eye contact. SKIN: Warm, dry, normal turgor Laboratory Results 02/12/19 02/12/19 02/12/19 03:20 03:20 03:20 WBC 8.1 RBC 4.22 Hgb 12.8 Hct 37.8 D MCV 89.5 MCH 30.3 MCHC 33.8 RDW 14.8 Plt Count 245 D MPV 6.9 L Absolute Neuts (auto) 3.1 Neutrophils % 37.7 L D Lymphocytes % 55.7 H D Monocytes % 4.6 Eosinophils % 1.6 D Basophils % 0.4 Nucleated RBC % 0 PT with INR 11.70 INR 0.99 PTT (Actin FS) 34.6 Sodium 130 L Potassium 3.8 Chloride 95 L Carbon Dioxide 23 Anion Gap 12 BUN 14 Creatinine 1.1 Creat Clearance w eGFR 66.18 Random Glucose 113 H Calcium 8.2 L Total Bilirubin 0.2 AST 40 H ALT 49 Alkaline Phosphatase 103 Total Protein 6.9 Albumin 3.6 c-spine CT: f/u official read Head CT: focal high attenuation in L frontal cortical surface. small cortical contusion. Repeat head CT: with improvement, as without focal high attenuation in L frontal cortical surface. no midline shift. however await official read ASSESSMENT/PLAN: 68 y/o M with PMH HTN, HLD, DM, gout, who presents to the ED s/p fall today. #Brain contusion s/p fall -no fx evident on prelim imaging - follow official -neurochecks q4h -as per neurosx, as repeat head CT with improvement - no need for intervention. d/w neurosx: Dr. Romano -however await official CT read prior d/c. reads are from imaging interior design consultant thus far. -elevate HOB -without current signs of sofia reflex. #Hypotension 2/2 unclear etiology -less likely post-concussive as would expect hypertension -will give 250 cc NS bolus, f/u repeat BP #Intoxication -f/u alcohol level -will need sobriety before d/c #F/E/N careful with IVF to avoid increased ICP continue to follow lytes NPO for now #PPX SCD's #Dispo med-obs anticipate d/c if official CT reads WNL, pt sobriety and pending recs from neuro. Visit type - Emergency Visit Emergency Visit: Yes ED Registration Date: 02/12/19 Care time: The patient presented to the Emergency Department on the above date and was hospitalized for further evaluation of their emergent condition. - New Patient This patient is new to me today: Yes Date on this admission: 02/12/19 - Critical Care Critical Care patient: No
[2019-02-12] MEDS ORDERED: SODIUM CHLORIDE 250 ML IV STA (06:26)
[2019-02-12] MEDS: INSULIN SLIDING SCALE (NOVOLOG) 1 VIAL SQ SCH ×2 (06:50→11:06)
[2019-02-12 07:12] LABS: BASO % 0.4 % (0-2.0); EOS % 1.3 % (0-4.5); HEMATOCRIT 35.4 % (35.4-49); LYMPH % 59.5 % (8-40); MCHC 33.9 g/dl (32.0-35.9); MEAN CELL VOLUME 88.7 fl (80-96); MEAN PLT VOLUME 6.7 fl (7.5-11.1); MONO % 4.7 % (3.8-10.2); NEUT % 34.1 % (42.8-82.8); PLATELET COUNT 279 K/MM3 (134-434); RBC 3.99 M/mm3 (4.00-5.60); RDW 14.8 % (11.9-15.9); WHITE BLOOD COUNT 8.1 K/mm3 (4.0-10.0)
[2019-02-12 07:41] LABS: ANION GAP 10 MMOL/L (8-16); BLOOD UREA NITROGEN 14 mg/dL (7-18); CALCIUM 7.7 mg/dL (8.5-10.1); CHLORIDE 95 mmol/L (98-107); CO2 24 mmol/L (21-32); CREATININE 1.1 mg/dL (0.55-1.3); GLUCOSE,RANDOM 109 mg/dL (74-106); MAGNESIUM 1.9 mg/dL (1.8-2.4); POTASSIUM 3.5 mmol/L (3.5-5.1); SODIUM 129 mmol/L (136-145)
[2019-02-12 07:49] LABS: PROTHROMBIN TIME (PATIENT) 11.8 SEC (9.7-13.0)
[2019-02-12 07:51] LABS: ACTIVATED PTT 30.2 SECONDS (25.2-36.5)
--- NOTE | 2019-02-12 09:18 | CON.NEURO ---
Consult - Alcohol/Substance Use Hx Alcohol Use: Yes - Smoking History Smoking history: Unknown if ever smoked Have you smoked in the past 12 months: No Aproximately how many cigarettes per day: 0 If you are a former smoker, when did you quit?: many years ago Home Medications - Allergies Allergies/Adverse Reactions: Allergies Allergy/AdvReac Type Severity Reaction Status Date / Time Penicillins Allergy Vomiting Verified 10/06/17 12:17 - Home Medications Home Medications: Ambulatory Orders Atorvastatin Ca [Lipitor] 40 mg PO DAILY 03/19/16 Multivitamins [Multivit ([facility] Formulary)] 1 tab PO DAILY 03/19/16 Allopurinol [Zyloprim -] 100 mg PO DAILY #30 tablet 11/21/16 Amlodipine Besylate [Norvasc -] 10 mg PO DAILY #30 tablet 11/21/16 Naproxen [Naprosyn -] 500 mg PO BID tablet 11/21/16 Physical Exam-Neuro Vital Signs: Vital Signs Temperature 97.3 F L 02/12/19 06:54 Pulse Rate 66 02/12/19 06:54 Respiratory Rate 16 02/12/19 04:00 Blood Pressure 96/60 02/12/19 06:54 O2 Sat by Pulse Oximetry (%) 92 L 02/12/19 06:54 Labs: CBC, BMP 02/12/19 07:00 02/12/19 07:00 INR, PTT INR 1.00 (0.83-1.09) 02/12/19 07:00 Assessment/Plan CC Fall HPI 68 year old male history of HTN,HLD, Borderline DM,GOUT. He had four beer and had tripped on concrete steps. Patient hsa normal ct head and ct c spine. Patient is feeling better. He has history of three fall over two years. Patient denies nay headhace, no motor weakness. Patient has no focal neuro symptoms. PMH as above FH,SH,ROS reviewed in chart 68 y/o M with PMH HTN, HLD, DM, gout, who presents to the ED s/p fall today. As per pt, he was ambulating after drinking four beers, when he tripped on concrete steps, hitting his head on concrete. States that he fell face first. During which, pt suffered an abrasion to his forehead, nose, and scraped his L knee. Denies LOC. His son witnessed the fall and brought him to the ED for further evaluation. Denies any recent illnesses, or current focal neuro deficits. Has suffered numerous falls in the past, however was not intoxicated during them. When asked whether pt would want alcohol counseling, states "I do not need it." Denies LYNN, fever, chills, SOB, chest pain or changes in urinary or bowel function. PAST SURGICAL HISTORY: R eye sx x 2 Social History: Smoking: denies Alcohol: drinks beer, unable to quantify Drugs: denies Allergies Penicillins Allergy (Verified 10/06/17 12:17) Vomiting HOME MEDICATIONS: Home Medications Medication Instructions Recorded Atorvastatin Ca [Lipitor] 40 mg PO DAILY 03/19/16 Multivitamins [Multivit ([facility] 1 tab PO DAILY 03/19/16 Formulary)] Allopurinol [Zyloprim -] 100 mg PO DAILY #30 tablet 11/21/16 Amlodipine Besylate [Norvasc -] 10 mg PO DAILY #30 tablet 11/21/16 Naproxen [Naprosyn -] 500 mg PO BID tablet 11/21/16 medications need to be verified. pt did not know off hand the dosages or exact names. NEUROLOGICAL EXAMINATION Alert oriented x 3 , speech is normal and no neck stiffness EOMI, pupils reactive, no motor weakness sensory normal motor 5/[address] head and ct of c spine is normal Assessment 68 year old male came with fall , likely to be alochol intoxication. There is no evidence of cerebellar stroke , neuropathy or cord compression or extrapyramidal syndrome Plan suggest to outpatient follow up regarding recurrent fall in past, Thanking you so much Kervin Castillo MD
--- NOTE | 2019-02-12 10:22 | EKG ---
Test Reason : Blood Pressure : / mmHG Vent. Rate : 063 BPM Atrial Rate : 063 BPM P-R Int : 190 ms QRS Dur : 104 ms QT Int : 434 ms P-R-T Axes : 073 -20 -02 degrees QTc Int : 444 ms NORMAL SINUS RHYTHM NORMAL ECG WHEN COMPARED WITH ECG OF 06-OCT-2017 14:59, NO SIGNIFICANT CHANGE WAS FOUND Confirmed by MAGUI FLORES MD ([id number]) on 02/12/2019 10:22:39 AM Referred By: Confirmed By:MAGUI FLORES MD
[2019-02-12 10:50] LABS: ANISOCYTOSIS 0; MACROCYTOSIS 0; PLATELET ESTIMATE NORMAL
[2019-02-12 11:09] VITALS: BP 111/91; PULSE 98; TEMP 98.1
--- NOTE | 2019-02-12 14:26 | DS ---
Physical Exam: SUBJECTIVE: Patient seen and examined OBJECTIVE: Vital Signs Period Temp Pulse Resp BP Sys/Byrd Pulse Ox Last 24 Hr 97.2 F-98.1 F 66-98 16-18 85-111/44-91 92-100 PHYSICAL EXAM GENERAL: The patient is awake, alert, and fully oriented, in no acute distress. HEAD: Normal with no signs of trauma. EYES: PERRL, extraocular movements intact, sclera anicteric, conjunctiva clear. ENT: Ears normal, nares patent, oropharynx clear without exudates, moist mucous membranes. NECK: Trachea midline, full range of motion, supple. LUNGS: Breath sounds equal, clear to auscultation bilaterally, no wheezes, no crackles, no accessory muscle use. HEART: Regular rate and rhythm, S1, S2 without murmur, rub or gallop. ABDOMEN: Soft, nontender, nondistended, normoactive bowel sounds, no guarding, no rebound, no hepatosplenomegaly, no masses. EXTREMITIES: 2+ pulses, warm, well-perfused, no edema. NEUROLOGICAL: Cranial nerves II through XII grossly intact. Normal speech, gait not observed. PSYCH: Normal mood, normal affect. SKIN: Warm, dry, normal turgor, no rashes or lesions noted. LABS Laboratory Results - last 24 hr 02/12/19 02/12/19 02/12/19 03:20 03:20 03:20 WBC 8.1 RBC 4.22 Hgb 12.8 Hct 37.8 D MCV 89.5 MCH 30.3 MCHC 33.8 RDW 14.8 Plt Count 245 D MPV 6.9 L Absolute Neuts (auto) 3.1 Neutrophils % 37.7 L D Neutrophils % (Manual) Band Neutrophils % Lymphocytes % 55.7 H D Lymphocytes % (Manual) Monocytes % 4.6 Monocytes % (Manual) Eosinophils % 1.6 D Eosinophils % (Manual) Basophils % 0.4 Basophils % (Manual) Myelocytes % (Man) Promyelocytes % (Man) Blast Cells % (Manual) Nucleated RBC % 0 Metamyelocytes Hypochromia Platelet Estimate Polychromasia Poikilocytosis Anisocytosis Microcytosis Macrocytosis PT with INR 11.70 INR 0.99 PTT (Actin FS) 34.6 Sodium 130 L Potassium 3.8 Chloride 95 L Carbon Dioxide 23 Anion Gap 12 BUN 14 Creatinine 1.1 Creat Clearance w eGFR 66.18 POC Glucometer Random Glucose 113 H Calcium 8.2 L Phosphorus Magnesium Total Bilirubin 0.2 AST 40 H ALT 49 Alkaline Phosphatase 103 Total Protein 6.9 Albumin 3.6 Alcohol, Quantitative 02/12/19 02/12/19 02/12/19 06:48 07:00 07:00 WBC 8.1 RBC 3.99 L Hgb 12.0 Hct 35.4 MCV 88.7 MCH 30.0 MCHC 33.9 RDW 14.8 Plt Count 279 MPV 6.7 L Absolute Neuts (auto) 2.7 Neutrophils % 34.1 L Neutrophils % (Manual) 34.0 L Band Neutrophils % 0.0 Lymphocytes % 59.5 H Lymphocytes % (Manual) 61.0 H Monocytes % 4.7 Monocytes % (Manual) 3 L Eosinophils % 1.3 Eosinophils % (Manual) 0.0 Basophils % 0.4 Basophils % (Manual) 0.0 Myelocytes % (Man) 0 Promyelocytes % (Man) 0 Blast Cells % (Manual) 0 Nucleated RBC % 0 Metamyelocytes 0 Hypochromia 0 Platelet Estimate Normal Polychromasia 0 Poikilocytosis 0 Anisocytosis 0 Microcytosis 0 Macrocytosis 0 PT with INR INR PTT (Actin FS) Sodium 129 L Potassium 3.5 Chloride 95 L Carbon Dioxide 24 Anion Gap 10 BUN 14 Creatinine 1.1 Creat Clearance w eGFR 66.18 POC Glucometer 101 Random Glucose 109 H Calcium 7.7 L Phosphorus 3.0 Magnesium 1.9 Total Bilirubin AST ALT Alkaline Phosphatase Total Protein Albumin Alcohol, Quantitative 02/12/19 02/12/19 02/12/19 07:00 07:00 11:04 WBC RBC Hgb Hct MCV MCH MCHC RDW Plt Count MPV Absolute Neuts (auto) Neutrophils % Neutrophils % (Manual) Band Neutrophils % Lymphocytes % Lymphocytes % (Manual) Monocytes % Monocytes % (Manual) Eosinophils % Eosinophils % (Manual) Basophils % Basophils % (Manual) Myelocytes % (Man) Promyelocytes % (Man) Blast Cells % (Manual) Nucleated RBC % Metamyelocytes Hypochromia Platelet Estimate Polychromasia Poikilocytosis Anisocytosis Microcytosis Macrocytosis PT with INR 11.80 INR 1.00 PTT (Actin FS) 30.2 Sodium Potassium Chloride Carbon Dioxide Anion Gap BUN Creatinine Creat Clearance w eGFR POC Glucometer 71 Random Glucose Calcium Phosphorus Magnesium Total Bilirubin AST ALT Alkaline Phosphatase Total Protein Albumin Alcohol, Quantitative 256.0 H HOSPITAL COURSE: Date of Admission:02/12/19 Date of Discharge: 02/12/19 Discharge Summary Reason For Visit: CONTUSION OF BRAIN,ALCOHOLIC INTOXICATION Current Active Problems Alcohol intoxication (Acute) Brain contusion (Acute) Condition: Stable - Instructions Diet, Activity, Other Instructions: You came in for falling down. We imaged your head with a CT scan twice and found no acute problems. Please stop drinking. You stated that you could find your own Detox facility and declined to use ours. Please use topical creams and over the counter bandages to apply to your facial wounds. Continue taking your medications as prescribed Please follow up with your Primary Care Physician within 1 week. Please return to the ED if you are having nausea, vomiting, sudden changes in vision, chest pain or an concerning symptoms . Disposition: HOME - Home Medications Comprehensive Discharge Medication List: Ambulatory Orders Multivitamins [Multivit ([facility] Formulary)] 1 tab PO DAILY 03/19/16 Allopurinol [Zyloprim -] 100 mg PO DAILY #30 tablet 11/21/16 Naproxen [Naprosyn -] 500 mg PO BID tablet 11/21/16 Amlodipine Besylate/Benazepril [Lotrel 10-20 mg Capsule] 1 tab PO DAILY Atorvastatin Calcium 80 mg PO DAILY 02/12/19
--- NOTE | 2019-02-12 20:35 | PN ---
Teaching Attending Note Name of Resident: Mohsen Gibson ATTENDING PHYSICIAN STATEMENT I saw and evaluated the patient. I reviewed the resident's note and discussed the case with the resident. I agree with the resident's findings and plan as documented. SUBJECTIVE: Feels well - denies headache, neck pain, visual disturbance, fevers , chills, tremors, sweats, nausea, vomiting. OBJECTIVE: Afebrile, Hemodynamically Stable. Last Vital Signs Temp Pulse Resp BP Pulse Ox 98.1 F 98 H 16 111/91 99 02/12/19 11:00 02/12/19 11:00 02/12/19 11:00 02/12/19 11:02/12/19 11:00 HEENT - Small abrasion in middle of forehead and on bridge of nose. Heart - S1, S2, RRR Lungs - clear to auscultation Abdomen - soft, non-tender. Bowel Sounds normal. Extremities - no edema, no calf tenderness Neuro - AAO x 3. Tone/Power normal all 4 extremities. No tremor. Laboratory Results - last 24 hr 02/12/19 02/12/19 02/12/19 03:20 03:20 03:20 WBC 8.1 RBC 4.22 Hgb 12.8 Hct 37.8 D MCV 89.5 MCH 30.3 MCHC 33.8 RDW 14.8 Plt Count 245 D MPV 6.9 L Absolute Neuts (auto) 3.1 Neutrophils % 37.7 L D Neutrophils % (Manual) Band Neutrophils % Lymphocytes % 55.7 H D Lymphocytes % (Manual) Monocytes % 4.6 Monocytes % (Manual) Eosinophils % 1.6 D Eosinophils % (Manual) Basophils % 0.4 Basophils % (Manual) Myelocytes % (Man) Promyelocytes % (Man) Blast Cells % (Manual) Nucleated RBC % 0 Metamyelocytes Hypochromia Platelet Estimate Polychromasia Poikilocytosis Anisocytosis Microcytosis Macrocytosis PT with INR 11.70 INR 0.99 PTT (Actin FS) 34.6 Sodium 130 L Potassium 3.8 Chloride 95 L Carbon Dioxide 23 Anion Gap 12 BUN 14 Creatinine 1.1 Creat Clearance w eGFR 66.18 POC Glucometer Random Glucose 113 H Calcium 8.2 L Phosphorus Magnesium Total Bilirubin 0.2 AST 40 H ALT 49 Alkaline Phosphatase 103 Total Protein 6.9 Albumin 3.6 Alcohol, Quantitative 02/12/19 02/12/19 02/12/19 06:48 07:00 07:00 WBC 8.1 RBC 3.99 L Hgb 12.0 Hct 35.4 MCV 88.7 MCH 30.0 MCHC 33.9 RDW 14.8 Plt Count 279 MPV 6.7 L Absolute Neuts (auto) 2.7 Neutrophils % 34.1 L Neutrophils % (Manual) 34.0 L Band Neutrophils % 0.0 Lymphocytes % 59.5 H Lymphocytes % (Manual) 61.0 H Monocytes % 4.7 Monocytes % (Manual) 3 L Eosinophils % 1.3 Eosinophils % (Manual) 0.0 Basophils % 0.4 Basophils % (Manual) 0.0 Myelocytes % (Man) 0 Promyelocytes % (Man) 0 Blast Cells % (Manual) 0 Nucleated RBC % 0 Metamyelocytes 0 Hypochromia 0 Platelet Estimate Normal Polychromasia 0 Poikilocytosis 0 Anisocytosis 0 Microcytosis 0 Macrocytosis 0 PT with INR INR PTT (Actin FS) Sodium 129 L Potassium 3.5 Chloride 95 L Carbon Dioxide 24 Anion Gap 10 BUN 14 Creatinine 1.1 Creat Clearance w eGFR 66.18 POC Glucometer 101 Random Glucose 109 H Calcium 7.7 L Phosphorus 3.0 Magnesium 1.9 Total Bilirubin AST ALT Alkaline Phosphatase Total Protein Albumin Alcohol, Quantitative 02/12/19 02/12/19 02/12/19 07:00 07:00 11:04 WBC RBC Hgb Hct MCV MCH MCHC RDW Plt Count MPV Absolute Neuts (auto) Neutrophils % Neutrophils % (Manual) Band Neutrophils % Lymphocytes % Lymphocytes % (Manual) Monocytes % Monocytes % (Manual) Eosinophils % Eosinophils % (Manual) Basophils % Basophils % (Manual) Myelocytes % (Man) Promyelocytes % (Man) Blast Cells % (Manual) Nucleated RBC % Metamyelocytes Hypochromia Platelet Estimate Polychromasia Poikilocytosis Anisocytosis Microcytosis Macrocytosis PT with INR 11.80 INR 1.00 PTT (Actin FS) 30.2 Sodium Potassium Chloride Carbon Dioxide Anion Gap BUN Creatinine Creat Clearance w eGFR POC Glucometer 71 Random Glucose Calcium Phosphorus Magnesium Total Bilirubin AST ALT Alkaline Phosphatase Total Protein Albumin Alcohol, Quantitative 256.0 H Discharge Medications Medication Instructions Recorded Multivitamins [Multivit ([facility] 1 tab PO DAILY 03/19/16 Formulary)] Allopurinol [Zyloprim -] 100 mg PO DAILY #30 tablet 11/21/16 Naproxen [Naprosyn -] 500 mg PO BID tablet 11/21/16 Amlodipine Besylate/Benazepril 1 tab PO DAILY 02/12/19 [Lotrel 10-20 mg Capsule] Atorvastatin Calcium 80 mg PO DAILY 02/12/19 ASSESSMENT AND PLAN: 68 year old male with HTN, HLD, DM 2, Gout, history of alcohol excess sustained HI while intoxicated. Denies chest pain/palpitations/lightheadedness. Denies LOC /Seizures. CT Brain - no acute intracranial findings. CT C Spine - facet joint arthropathy, mild degenerative subluxation C5/6, C6/7 1. Head INjury secondary to Fall due to INtoxication CT Brain/C-Spine no acute findings Evaluated by Neurology- no deficits, neurologically intact - cleared for discharge. 2. Alcohol Intoxication - resolved, no signs of withdrawal Declines in-patient detox 3. Hx of Gout - Continue Allopurinol 4. HTN - normally on Norvasc/Benazepril 5. HLD - Continue Statin. 6. Hyponatremia - sec to Alcohol excess. Medically and Neurologically stable for discharge
== END 2019-02-12 15:10 | disposition home or self-care (01) ==
LOC: JER 00:44 → JERBED 02:44
PROVIDERS: ADMIT Internal Medicine
PROC: 3E0337Z Introduction of Electrolytic and Water Balance Substance into Peripheral Vein, Percutaneous Approach (ICD-10-PCS; principal; 2019-02-12)
DX: S06.2X0A Diffuse traumatic brain injury without loss of consciousness, initial encounter (principal); F10.129 Alcohol abuse with intoxication, unspecified; I10 Essential (primary) hypertension; E11.9 Type 2 diabetes mellitus without complications; E78.5 Hyperlipidemia, unspecified; M10.9 Gout, unspecified; W01.198A Fall on same level from slipping, tripping and stumbling with subsequent striking against other object, initial encounter; Y93.01 Activity, walking, marching and hiking; Y92.9 Unspecified place or not applicable; Z88.0 Allergy status to penicillin; E66.3 Overweight; Z68.29 Body mass index [BMI] 29.0-29.9, adult; I95.9 Hypotension, unspecified
CPT/HCPCS: 36415; 70450-TC; 71045-TC-FY; 72125-TC; 80048; 80053; 80307; 82962; 83735; 84100; 85025; 85610; 85730; 93005; 93010; 96360; 99283-25; G0378

== ENCOUNTER 2019-12-29 16:22 | Inpatient (IN) | payer OTHER ==
--- NOTE | 2019-12-29 17:39 | PDOC ---
History of Present Illness - General Chief Complaint: Syncope/Near Syncope Stated Complaint: SYNCOPE Time Seen by Provider: 12/29/19 17:05 History Source: Patient, Old Records Exam Limitations: No Limitations - History of Present Illness Initial Comments: HPI: 69 y/o male presenting to [facility] ER s/p syncopal episode while standing in line at the deli. Started feeling hot, diaphoretic, and lightheaded before losing consciousness. Is unable to recall falling to the ground. Next remembers being helped to his feet by bystanders. Pt vomited and was incontinent of fecal material. Denies loss of bladder contents or tongue biting. Denies pain or further dizziness at time of interview. Pt states he has a h/o of passing out - "several times" over the past few years. Denies h/o seizures. Social: - Former smoker - EtOH: drank one beer earlier today - Street drugs: Denies Medical Hx: - HTN - HLD - Borderline DM - Gout - Former Smoker Surgical Hx: - R Inguinal Hernia Repair, 2016 Review of Systems: In addition to that documented in the HPI above, the additional ROS was obtained : Constitutional- Denies fevers or chills Head- Denies headache, vision changes ENMT- Denies sore throat CV- Denies chest pain Resp- Denies SOB GI- Denies abdominal pain or diarrhea - Denies painful urination MSK- Denies pain to arm or leg Skin- Denies new rashes Neuro- Denies new numbness or tingling or weakness Endocrine- Denies polyuria Heme- Denies bleeding or bruising Physical Examination: Vital signs and nursing notes reviewed. Constitutional- Well-developed, well-nourished adult male in no acute distress or obvious discomfort. Found semi-fowlers on hospital bed. Head- Normocephalic. No obvious external signs of trauma. No tenderness to palpation. Eyes- Pupils 3mm and PERRL. EOMI. Sclerae white. Ears- Hearing grossly intact. No discharge. Nose- No nasal discharge. Throat- Oral cavity and pharynx normal. No tongue injuries noted. Moist mucosal membranes. Neck- Supple, trachea is midline. No midline cervical tenderness. No step off. Able to rotate neck laterally to R and L >45 degrees without difficulty. Cardiovascular / Chest- Regular rate and regular rhythm. No murmur, rubs, clicks , or gallops. Peripheral pulses- radial pulses full. Respiratory- Breathing unlabored. Equal chest rise and fall. Clear to auscultation bilaterally. No stridor, no wheezing, no rhonchi. Gastrointestinal- abdomen is soft, non-tender, non-distended. No overlying skin lesions or obvious signs of trauma. Neuro- Alert and oriented x4. Moving all four extremities spontaneously. No facial asymmetry. No slurred speech. No focal deficits. No upper or lower extremity drift. Sensation to all four extremities intact. No nuchal rigidity. Skin- Warm, dry, and intact. No bruising, rashes, or other lesions. Psych- Affect- appropriate. Mood- normal. Speech was non-labored, non- pressured. MDM: 69 y/o male presenting with s/p syncopal episode with prodromal symptoms. Afebrile. Vitals remarkable for borderline tachycardia without hypotension. Physical exam as described above. No obvious signs of trauma. Neurologically intact. Suspect likely vasovagal given prodromal symptoms. Will obtain ACS workup as pt's EKG revealed new right bundle branch block. Low suspicion for seizure. Noted elevated lactic acid, suspect secondary to stress response to syncope vs dehydration. Ordered LR IVFB. Reviewed Head and C-spine CT. No acute trauma or ICH. Pt signed out to resident Dr. Villanueva. Will f/u pending laboratory data. Anticipate admission for syncope with new onset RBBB. Refugio Kessler M.D., PGY2 Emergency Medicine Resident Past History - Past Medical History Allergies/Adverse Reactions: Allergies Allergy/AdvReac Type Severity Reaction Status Date / Time Penicillins Allergy Vomiting Verified 02/12/19 10:19 Home Medications: Ambulatory Orders Multivitamins [Multivit ([facility] Formulary)] 1 tab PO DAILY 03/19/16 Allopurinol [Zyloprim -] 100 mg PO DAILY #30 tablet 11/21/16 Naproxen [Naprosyn -] 500 mg PO BID tablet 11/21/16 Amlodipine Besylate/Benazepril [Lotrel 10-20 mg Capsule] 1 tab PO DAILY Atorvastatin Calcium 80 mg PO DAILY 02/12/19 CVA: No COPD: No Dementia: No Diabetes: Yes (BORDERLINE) HTN: Yes Hypercholesterolemia: Yes - Surgical History Abdominal Surgery: Yes (HERNIA) Orthopedic Surgery: Yes (left knee ) - Immunization History Immunization Up to Date: No - Psycho Social/Smoking Cessation Hx Smoking History: Former smoker Have you smoked in the past 12 months: No Number of Cigarettes Smoked Daily: 0 If you are a former smoker, when did you quit?: many years ago Information on smoking cessation initiated: No Hx Alcohol Use: Yes Drug/Substance Use Hx: No Substance Use Type: None Hx Substance Use Treatment: No *Physical Exam - Vital Signs Last Vital Signs Temp Pulse Resp BP Pulse Ox 99.2 F 98 H 18 104/49 L 100 12/29/19 16:55 12/29/19 16:55 12/29/19 16:55 12/29/19 16:55 12/29/19 16:59 ED Treatment Course - LABORATORY CBC & Chemistry Diagram: 12/29/19 17:40 12/29/19 17:40 - RADIOLOGY Radiology Studies Ordered: Category Date Time Status CERVICAL SPINE CT W/O CONTR [CT] Stat CT Scan 12/29/19 17:[address] WITHOUT CONTRAST [CT] Stat CT Scan 12/29/19 17:23 Ordered CHEST X-RAY PORTABLE* [RAD] Stat Radiology 12/29/19 17:25 Ordered PELVIS [RAD] Stat Radiology 12/29/19 17:25 Ordered Discharge - Discharge Information Problems reviewed: Yes Clinical Impression/Diagnosis: Syncope and collapse Condition: Stable - Admission Yes - Follow up/Referral Referrals: Dixie Barragan MD [Primary Care Provider] - - Patient Discharge Instructions - Post Discharge Activity
[2019-12-29 18:01] LABS: BASO % 0.7 % (0-2.0); EOS % 0.1 % (0-4.5); HEMATOCRIT 41.5 % (35.4-49); HEMOGLOBIN 14.1 GM/dL (11.7-16.9); LYMPH % 10.4 % (8-40); MCH 30.3 pg (25.7-33.7); MCHC 33.9 g/dl (32.0-35.9); MEAN CELL VOLUME 89.5 fl (80-96); MEAN PLT VOLUME 7.5 fl (7.5-11.1); MONO % 12.3 % (3.8-10.2); NEUT % 76.5 % (42.8-82.8); PLATELET COUNT 262 K/MM3 (134-434); RBC 4.64 M/mm3 (4.00-5.60); RDW 15.1 % (11.9-15.9); WHITE BLOOD COUNT 8.8 K/mm3 (4.0-10.0)
[2019-12-29 18:20] LABS: INR 0.99 (0.83-1.09); PROTHROMBIN TIME (PATIENT) 11.7 SEC (9.7-13.0)
[2019-12-29 18:22] LABS: ACTIVATED PTT 28.6 SECONDS (25.2-36.5)
[2019-12-29] MEDS ORDERED: LACTATED RINGERS SOLUTION 1000 ML INFUS.BAG IV ONE (18:40)
--- NOTE | 2019-12-29 19:27 | PDOC ---
*Physical Exam - Vital Signs Last Vital Signs Temp Pulse Resp BP Pulse Ox 99.5 F 101 H 15 110/80 99 12/29/19 18:35 12/29/19 18:35 12/29/19 18:35 12/29/19 18:35 12/29/19 18:35 - Physical Exam General Appearance: No: Apparent Distress HEENT: positive: EOMI, CLARKE Neck: positive: Supple ED Treatment Course - LABORATORY CBC & Chemistry Diagram: 12/29/19 17:40 12/29/19 18:54 - ADDITIONAL ORDERS Additional order review: Laboratory Results 12/29/19 12/29/19 12/29/19 17:40 17:40 17:40 PT with INR 11.70 INR 0.99 PTT (Actin FS) 28.6 Sodium Cancelled Potassium Cancelled Chloride Cancelled Carbon Dioxide Cancelled Anion Gap Cancelled BUN Cancelled Creatinine Cancelled Est GFR (CKD-EPI)AfAm Cancelled Est GFR (CKD-EPI)NonAf Cancelled Random Glucose Cancelled Lactic Acid 4.0 H* Calcium Cancelled Phosphorus Cancelled Magnesium Cancelled Total Bilirubin Cancelled AST Cancelled ALT Cancelled Alkaline Phosphatase Cancelled Total Protein Cancelled Albumin Cancelled Alcohol, Quantitative Cancelled 12/29/19 17:40 RBC 4.64 MCV 89.5 MCHC 33.9 RDW 15.1 MPV 7.5 D Neutrophils % 76.5 D Lymphocytes % 10.4 D Monocytes % 12.3 H D Eosinophils % 0.1 D Basophils % 0.7 - Medications Given in the ED: ED Medications Discontinued Medications Generic Name Dose Route Start Last Admin Trade Name Freq PRN Reason Stop Dose Admin Lactated Ringer's 1,000 ml 12/29/19 18:40 12/29/19 18:48 Lactated Ringers Solution IV 12/29/19 18:41 1,000 ml ONCE ONE Administration ED Progress Note - Progress Note Progress Note: 12/29/19 19:30 Received signout on this patient 69 year old male with a significant PMH of hypertension, hyperlipidemia, borderline diabetes who presents to the emergency department s/p syncopal episode while at the [facility]. The patient states he endorsed episodes of lightheaded, nausea and dizziness prior to passing out. Pt does not recall hitting his head, next thing he knew he woke up on the floor. Pt states he drank 1 beer earlier and he usually only drinks beer. Pt denies any seizure activity. Denies headaches, midline back pain or paresthesia of upper extremities. Denies abdominal pain or hip pain. ON my encounter, pt offered no complaints other then feeling chills and wet cough. Temp remeasure and noted to be 101.2 orally will get a rectal and give orfimev. PE: VS: tachycardic GEN: NAD HEENT: PERRLA, moist membrane, clear conjunctiva NECK: no JVD CHEST: vesicular breath sounds b/l but reduced at the bases HEART: tachycardic, no murmur, rubs or gallop ABDOMEN: + BS, soft and flat, NTND Extremities: 2+ pulses, no edema SKIN: no bruises MSK: no arthralgia, no joint tenderness PSYCH: anxious appearing Neuro: AAOx3, motor strength 5/5, sensation intact throughout plan: follow up repeat chemistry, repeat ekg in the setting of tachycardia with abnormal rhythm on monitor, orfimev for high temp and flu swab 12/29/19 19:46 CXR no acute pathology, hip Xray no fracture, head CT no acute pathology, C spine CT no acute pathology /fracture repeat EKG showed sinus tachycardia with same new RBBB 12/29/19 20:32 CMP Sodium 135 mmol/L (136-145) L 12/29/19 18:54 Potassium 3.4 mmol/L (3.5-5.1) L 12/29/19 18:54 Chloride 99 mmol/L (98-107) 12/29/19 18:54 Carbon Dioxide 22 mmol/L (21-32) 12/29/19 18:54 Anion Gap 14 MMOL/L (8-16) 12/29/19 18:54 BUN 13.9 mg/dL (7-18) 12/29/19 18:54 Creatinine 1.7 mg/dL (0.55-1.3) H 12/29/19 18:54 Est GFR (CKD-EPI)AfAm 46.00 12/29/19 18:54 Est GFR (CKD-EPI)NonAf 39.69 12/29/19 18:54 Random Glucose 106 mg/dL (74-106) 12/29/19 18:54 Lactic Acid 4.0 mmol/L (0.4-2.0) H* 12/29/19 17:40 Calcium 9.4 mg/dL (8.5-10.1) 12/29/19 18:54 Phosphorus 3.6 mg/dL (2.5-4.9) 12/29/19 18:54 Magnesium 1.8 mg/dL (1.8-2.4) 12/29/19 18:54 Total Bilirubin 0.4 mg/dL (0.2-1) 12/29/19 18:54 AST 35 U/L (15-37) 12/29/19 18:54 ALT 30 U/L (13-61) 12/29/19 18:54 Alkaline Phosphatase 120 U/L (45-117) H 12/29/19 18:54 Creatine Kinase 210 U/L (26-308) 12/29/19 18:54 Troponin I < 0.02 ng/ml (0.00-0.05) 12/29/19 18:54 Total Protein 8.0 g/dl (6.4-8.2) 12/29/19 18:54 Albumin 4.0 g/dl (3.4-5.0) 12/29/19 18:54 mild hyponatremia and hypokalemia , with Cr 1.7, LA 4 1L LR being given trop negative 12/29/19 20:36 will send admission microblog 12/29/19 20:39 Pt signed out and admitted to tele Discharge - Discharge Information Problems reviewed: Yes Clinical Impression/Diagnosis: Syncope and collapse Condition: Stable - Admission Yes - Follow up/Referral - Patient Discharge Instructions - Post Discharge Activity
[2019-12-29] MEDS ORDERED: ACETAMINOPHEN 1000 MG/100 ML VIAL (NON FORMULARY) IVPB ONE (19:40)
[2019-12-29] MEDS ORDERED: ACETAMINOPHEN INJECTION 100 ML IVPB ONE (19:50)
[2019-12-29 19:52] LABS: ALK PHOS 120 U/L (45-117); ANION GAP 14 MMOL/L (8-16); BILIRUBIN,TOTAL 0.4 mg/dL (0.2-1); BLOOD UREA NITROGEN 13.9 mg/dL (7-18); CALCIUM 9.4 mg/dL (8.5-10.1); CHLORIDE 99 mmol/L (98-107); CO2 22 mmol/L (21-32); CREATININE 1.7 mg/dL (0.55-1.3); GLUCOSE,RANDOM 106 mg/dL (74-106); MAGNESIUM 1.8 mg/dL (1.8-2.4); PHOSPHOROUS 3.6 mg/dL (2.5-4.9); POTASSIUM 3.4 mmol/L (3.5-5.1); SGOT/AST 35 U/L (15-37); SGPT/ALT 30 U/L (13-61); SODIUM 135 mmol/L (136-145)
[2019-12-29] MEDS ORDERED: chlordiazePOXIDE HCL 25 MG CAPSULE PO ONE (20:11)
[2019-12-29] MEDS ORDERED: chlordiazePOXIDE HCL 25 MG CAPSULE ONE (20:14)
[2019-12-29] MEDS ORDERED: POTASSIUM CHLORIDE TABS 20 MEQ TABLET.ER (FP) PO ONE ×2 (20:33→21:26)
--- NOTE | 2019-12-29 21:22 | PN ---
Teaching Attending Note Name of Resident: Elise Gayle ATTENDING PHYSICIAN STATEMENT I saw and evaluated the patient. I reviewed the resident's note and discussed the case with the resident. I agree with the resident's findings and plan as documented. SUBJECTIVE: Patient is a 69 year old man with a PMH of Hypertension, Penicillin allergy, Alcohol abuse, Syncope, Hyperlipidemia, Borderline diabetes mellitus and Gout who presents to the emergency department after a syncopal episode while at a Deli. The patient states he had episodes of lightheadedness, nausea and dizziness prior to passing out. Does not recall hitting his head, next thing he knew he woke up on the floor. Has stool incontinence and episode of vomiting. Says he drank 1 beer earlier and he usually only drinks beer. Denies any seizure activity, headaches, midline back pain, limb pain, abdominal pain or hip pain. Ex-smoker. Denies tobacco or illicit drug use. No sick contacts or recent travels. OBJECTIVE: Alert and not orthostatic Vital Signs Period Temp Pulse Resp BP Sys/Byrd Pulse Ox Last 24 Hr 98.3 F-99.5 F 98-101 15-18 104-124/49-80 99-100 HEENT: No Jaundice, eye redness or discharge, PERRLA, EOMI. Normocephalic, atraumatic. External ears are normal and hearing is grossly intact. No nasal discharge. Neck: Supple, nontender. No palpable adenopathy or thyromegaly. No JVD Chest: Good effort. Clear to auscultation and percussion. Heart: Regular. No S3, rub or murmur Abdomen: Not distended, soft, nontender and no HSM. No rebound or guarding. Normal bowel sounds. Ext: Peripheral pulses intact. No leg edema. Skin: Warm and dry. No petechiae, rash or ecchymosis. Neuro: Alert. Oriented x3. CN 2-12 grossly intact. Sensation grossly intact in all four extremities and DTR are symmetric. Psych: Appropriate mood and affect. Good insight. Home Medications Medication Instructions Recorded Multivitamins [Multivit ([facility] 1 tab PO DAILY 03/19/16 Formulary)] Allopurinol [Zyloprim -] 100 mg PO DAILY #30 tablet 11/21/16 Naproxen [Naprosyn -] 500 mg PO BID tablet 11/21/16 Amlodipine Besylate/Benazepril 1 tab PO DAILY 02/12/19 [Lotrel 10-20 mg Capsule] Atorvastatin Calcium 80 mg PO DAILY 02/12/19 Abnormal Lab Results 12/29/19 12/29/19 12/29/19 17:40 17:40 18:54 Monocytes % 12.3 H D Sodium 135 L Potassium 3.4 L Creatinine 1.7 H Lactic Acid 4.0 H* Alkaline Phosphatase 120 H ASSESSMENT AND PLAN: 1. Syncope - Etiology unclear, but blood alcohol level is pending. Has had prior presentations with syncope and noted to have high blood alcohol level. No acute abnormality noted on head CT, C spine CT, Hip/Pelvis xrays or CXR. Flu swab was negative. Lactic acidosis and hypokalemia likely related to alcohol use. Will check serum Mg+, give KCL and hydrate with IV banana bag. EKG shows sinus tachycardia with, LAD and ?new RBBB and initial troponin is negative. Will admit to telemetry to rule out ACS, get ECHO, consult cardiology, get carotid doppler and consult Neurology. Will continue comprehensive care for all of patients comorbid conditions. 2. Borderline DM Will implement sliding scale insulin regimen. Provide comprehensive diabetes care with patient teaching and counseling about the importance of adherence to prescribed diabetes regimen, euglycemia, eye care and foot care. 3. BROOK ? - May signal mild rhabdomyolysis or effect of NSAID use. Will get urinalysis, kidney sonogram, hydrate and avoid nephrotoxic agents such as NSAIDS , aminoglycosides, contrast dyes and certain Alternative medicine products. 4. Morbid obesity Counseled on the risks associated with obesity. Will provide patient all the necessary assistance, counseling and positive reinforcement to facilitate weight loss. Consult warehouse checker. 5. Alcohol abuse - Implement [facility] alcohol withdrawal protocol and do neurochecks. Implement seizure, fall and aspiration precautions. Treat with thiamine and folic acid and monitor electrolytes (Ca,Mg,K,P). Counseled patient about abstaining from alcohol. Will consult meeting specialist and refer to alcohol detox upon discharge. 6. Hypertension - Restart suitable outpatient antihypertensive drugs when clinically appropriate. Revise regimen to ensure [id number] excellent BP control and mortgage loan counselor patient on the injurious effects of uncontrolled hypertension. Nonpharmacologic measures to control hypertension like weight loss , salt restriction and exercise discussed. Importance of adherence to treatment regimen and attainment of normotension emphasized. 7. DVT prophylaxis - Heparin 5000u sq tid. 8. Advance directives - Full code
--- NOTE | 2019-12-29 22:03 | HP ---
CHIEF COMPLAINT: syncope PCP: HISTORY OF PRESENT ILLNESS: 69 y.o. M PMH HTN, HLD, preDM, alcohol abuse, gout, hx of syncopal episodes presenting for a syncopal episode. The patient states this afternoon he was sitting in a deli, stood up quickly and fell to the ground. Denies LOC, did not hit his head (fell on buttocks), denies memory deficits during this time, no tongue biting or urinary incontinence; however patient endorses fecal incontinence. Pt also had 1 episode NBNB prior to falling. He cannot remember the last time he syncopized but had has 3 episodes over the past year, did not have medical workup. Of note the patient says he drank 1 beer prior to syncope. Denies lightheadedness/ headache/ unsteady gait/ N/V. ER course was notable for: (1)1L LR (2)50mg librium (3) Recent Travel: denies PAST MEDICAL HISTORY: as per hpi PAST SURGICAL HISTORY: inguinal hernia repair Social History: Smoking: quit many years ago Alcohol: up to 6pack beer per day but not every day. never completed detox in the past. Drugs: denies Allergies Penicillins Allergy (Verified 02/12/19 10:19) Vomiting HOME MEDICATIONS: Home Medications Medication Instructions Recorded Multivitamins [Multivit ([facility] 1 tab PO DAILY 03/19/16 Formulary)] Allopurinol [Zyloprim -] 100 mg PO DAILY #30 tablet 11/21/16 Naproxen [Naprosyn -] 500 mg PO BID tablet 11/21/16 Amlodipine Besylate/Benazepril 1 tab PO DAILY 02/12/19 [Lotrel 10-20 mg Capsule] Atorvastatin Calcium 80 mg PO DAILY 02/12/19 REVIEW OF SYSTEMS CONSTITUTIONAL: Absent: fever, chills, diaphoresis, generalized weakness, malaise, loss of appetite, weight change HEENT: Absent: rhinorrhea, nasal congestion, throat pain, throat swelling, difficulty swallowing, mouth swelling, ear pain, eye pain, visual changes CARDIOVASCULAR: Absent: chest pain, syncope, palpitations, irregular heart rate, lightheadedness , peripheral edema RESPIRATORY: Absent: cough, shortness of breath, dyspnea with exertion, orthopnea, wheezing, stridor, hemoptysis GASTROINTESTINAL: Absent: abdominal pain, abdominal distension, nausea, vomiting, diarrhea, constipation, melena, hematochezia GENITOURINARY: Absent: dysuria, frequency, urgency, hesitancy, hematuria, flank pain, genital pain MUSCULOSKELETAL: Absent: myalgia, arthralgia, joint swelling, back pain, neck pain SKIN: Absent: rash, itching, pallor HEMATOLOGIC/IMMUNOLOGIC: Absent: easy bleeding, easy bruising, lymphadenopathy, frequent infections ENDOCRINE: Absent: unexplained weight gain, unexplained weight loss, heat intolerance, cold intolerance NEUROLOGIC: Absent: headache, focal weakness or paresthesias, dizziness, unsteady gait, seizure, mental status changes, bladder or bowel incontinence PSYCHIATRIC: Absent: anxiety, depression, suicidal or homicidal ideation, hallucinations. PHYSICAL EXAMINATION Vital Signs - 24 hr 12/29/19 12/29/19 12/29/19 16:55 16:59 18:35 Temperature 99.2 F 99.5 F Pulse Rate 98 H Pulse Rate [ 101 H Left Radial] Respiratory 18 15 Rate Blood Pressure 104/49 L Blood Pressure 110/80 [Left Arm] O2 Sat by Pulse 100 100 99 Oximetry (%) 12/29/19 12/29/19 20:10 20:11 Temperature 98.3 F Pulse Rate Pulse Rate [ Left Radial] Respiratory Rate Blood Pressure 124/75 Blood Pressure [Left Arm] O2 Sat by Pulse Oximetry (%) GENERAL: Awake, alert, and fully oriented, in no acute distress. Orthostatics negative. No tremors. HEENT: NCAT LUNGS: Breath sounds equal, clear to auscultation bilaterally. No wheezes, and no crackles. No accessory muscle use. HEART: Regular rate and rhythm, normal S1 and S2 without murmur, rub or gallop. ABDOMEN: Soft, nontender, not distended, normoactive bowel sounds, no guarding EXTREMITIES: 2+ pulses, warm, well-perfused. No calf tenderness. No peripheral edema. NEUROLOGICAL: Cranial nerves II-XII intact. Normal speech. Normal gait. PSYCHIATRIC: Appropriate mood and affect. SKIN: no rashes or lesions noted Laboratory Results - last 24 hr 12/29/19 12/29/19 12/29/19 17:40 17:40 17:40 WBC 8.8 RBC 4.64 Hgb 14.1 Hct 41.5 D MCV 89.5 MCH 30.3 MCHC 33.9 RDW 15.1 Plt Count 262 MPV 7.5 D Absolute Neuts (auto) 6.8 Neutrophils % 76.5 D Lymphocytes % 10.4 D Monocytes % 12.3 H D Eosinophils % 0.1 D Basophils % 0.7 Nucleated RBC % 0 PT with INR INR PTT (Actin FS) Sodium Cancelled Potassium Cancelled Chloride Cancelled Carbon Dioxide Cancelled Anion Gap Cancelled BUN Cancelled Creatinine Cancelled Est GFR (CKD-EPI)AfAm Cancelled Est GFR (CKD-EPI)NonAf Cancelled Random Glucose Cancelled Lactic Acid 4.0 H* Calcium Cancelled Phosphorus Cancelled Magnesium Cancelled Total Bilirubin Cancelled AST Cancelled ALT Cancelled Alkaline Phosphatase Cancelled Creatine Kinase Creatine Kinase Index CK-MB (CK-2) Troponin I Total Protein Cancelled Albumin Cancelled Alcohol, Quantitative Cancelled Influenza A (Rapid) Influenza B (Rapid) 12/29/19 12/29/19 12/29/19 17:40 18:54 19:45 WBC RBC Hgb Hct MCV MCH MCHC RDW Plt Count MPV Absolute Neuts (auto) Neutrophils % Lymphocytes % Monocytes % Eosinophils % Basophils % Nucleated RBC % PT with INR 11.70 INR 0.99 PTT (Actin FS) 28.6 Sodium 135 L Potassium 3.4 L Chloride 99 Carbon Dioxide 22 Anion Gap 14 BUN 13.9 Creatinine 1.7 H Est GFR (CKD-EPI)AfAm 46.00 Est GFR (CKD-EPI)NonAf 39.69 Random Glucose 106 Lactic Acid Calcium 9.4 Phosphorus 3.6 Magnesium 1.8 Total Bilirubin 0.4 AST 35 ALT 30 Alkaline Phosphatase 120 H Creatine Kinase 210 Creatine Kinase Index No Result Required. CK-MB (CK-2) < 1.0 Troponin I < 0.02 Total Protein 8.0 Albumin 4.0 Alcohol, Quantitative Influenza A (Rapid) Negative Influenza B (Rapid) Negative ASSESSMENT/PLAN: 69 y.o. M PMH HTN, HLD, preDM, alcohol abuse, gout, hx of syncopal episodes presenting for syncopal episode #Syncopal episode -orthostatics negative -CT head & C-spine negative for acute pathology -CR hip/pelvis negative for fracture -f/u echo -tele monitoring -fall, seizure, aspiration precautions -neuro consulted-- Dr. Castillo #New onset RBBB, r/o ACS -cardio consult-- Dr. Villanueva -f/u AM EKG, carotid doppler, echo -trop neg x1, f/u AM level -continue tele monitoring #BROOK -Cr 1.7 baseline 1.1 -Continue IVF -F/u renal U/S -urine lytes, UA -acoid nephrotoxic meds-- holding home naproxen #Alcohol abuse -thiamine, multivitamin, folic acid -f/u alcohol level -lactic acidoses, 4.0-- f/u AM level -fall precautions -CIWA 0 on my exam; s/p 50mg librium given in ED; continue to monitor for signs of withdrawal #HTN -holding home BP meds in setting of syncope -can resume in AM if clinically appropriate -monitor BP #HLD -resume home atorvastatin 80mg daily #Gout -no acute flares -continue home meds: allopurinol 100mg daily -hold home naproxen #Pre-diabetes -BGMs ACHS -ISS #FEN -NS @75cc/hr -K+ repleted; monitor Na, hyponatremic although appears chronic -Sodium/ fat controlled diet #PPX -heparin sq #Dispo tele Visit type - Emergency Visit Emergency Visit: Yes ED Registration Date: 12/29/19 Care time: The patient presented to the Emergency Department on the above date and was hospitalized for further evaluation of their emergent condition. - New Patient This patient is new to me today: Yes Date on this admission: 12/30/19 - Critical Care Critical Care patient: No ATTENDING PHYSICIAN STATEMENT I saw and evaluated the patient. I reviewed the resident's note and discussed the case with the resident. I agree with the resident's findings and plan as documented. SUBJECTIVE: OBJECTIVE: ASSESSMENT AND PLAN:
[2019-12-29 23:09] LABS: ANION GAP 10 MMOL/L (8-16); CHLORIDE 101 mmol/L (98-107); CO2 23 mmol/L (21-32); POTASSIUM 3.3 mmol/L (3.5-5.1); SODIUM 134 mmol/L (136-145)
[2019-12-30] MEDS ORDERED: SODIUM CHLORIDE 1,000 ML IV SCH
[2019-12-30 02:42] VITALS: BMI 26.3
[2019-12-30] MEDS: HEPARIN NA (PORCINE) 5,000 UNITS/ML 1ML VIAL SQ SCH ×3 (06:34→21:41)
[2019-12-30 07:01] LABS: HEMATOCRIT 35.6 % (35.4-49); HEMOGLOBIN 12.3 GM/dL (11.7-16.9); MCH 30.1 pg (25.7-33.7); MCHC 34.4 g/dl (32.0-35.9); MEAN CELL VOLUME 87.5 fl (80-96); PLATELET COUNT 239 K/MM3 (134-434); RBC 4.07 M/mm3 (4.00-5.60); RDW 15.1 % (11.9-15.9); WHITE BLOOD COUNT 8.5 K/mm3 (4.0-10.0)
[2019-12-30 08:00] LABS: ALBUMIN 3.3 g/dl (3.4-5.0); ALK PHOS 98 U/L (45-117); ANION GAP 12 MMOL/L (8-16); BILIRUBIN,TOTAL 0.4 mg/dL (0.2-1); BLOOD UREA NITROGEN 11.3 mg/dL (7-18); CALCIUM 8.3 mg/dL (8.5-10.1); CHLORIDE 103 mmol/L (98-107); CO2 22 mmol/L (21-32); CREATININE 1.2 mg/dL (0.55-1.3); GLUCOSE,RANDOM 106 mg/dL (74-106); POTASSIUM 3.4 mmol/L (3.5-5.1); SGOT/AST 29 U/L (15-37); SGPT/ALT 22 U/L (13-61); SODIUM 136 mmol/L (136-145); TOT PROT 6.4 g/dl (6.4-8.2)
[2019-12-30] MEDS: THIAMINE HCL 100 MG TABLET (FP) PO SCH (09:20)
[2019-12-30] MEDS: MULTIVITAMINS (DAILY MVI) TABLET (FP) PO SCH (09:20)
[2019-12-30] MEDS: FOLIC ACID 1 MG TABLET (FP) PO SCH (09:20)
--- NOTE | 2019-12-30 11:52 | EKG ---
Test Reason : Blood Pressure : / mmHG Vent. Rate : 103 BPM Atrial Rate : 103 BPM P-R Int : 186 ms QRS Dur : 142 ms QT Int : 388 ms P-R-T Axes : 041 -53 028 degrees QTc Int : 508 ms SINUS TACHYCARDIA WITH PREMATURE ATRIAL COMPLEXES RIGHT BUNDLE BRANCH BLOCK LEFT ANTERIOR FASCICULAR BLOCK BIFASCICULAR BLOCK ABNORMAL ECG WHEN COMPARED WITH ECG OF 29-DEC-2019 19:38, PREMATURE ATRIAL COMPLEXES ARE NOW PRESENT Confirmed by SNEHA GOODE MD ([id number]) on 12/30/2019 11:52:05 AM Referred By: MANUEL PAGAN DR Confirmed By:SNEHA GOODE MD
--- NOTE | 2019-12-30 11:53 | EKG ---
Test Reason : Blood Pressure : / mmHG Vent. Rate : 108 BPM Atrial Rate : 108 BPM P-R Int : 200 ms QRS Dur : 130 ms QT Int : 370 ms P-R-T Axes : 020 -48 016 degrees QTc Int : 495 ms POOR DATA QUALITY, INTERPRETATION MAY BE ADVERSELY AFFECTED SINUS TACHYCARDIA LEFT AXIS DEVIATION RIGHT BUNDLE BRANCH BLOCK ABNORMAL ECG WHEN COMPARED WITH ECG OF 29-DEC-2019 17:17, NO SIGNIFICANT CHANGE WAS FOUND Confirmed by SNEHA GOODE MD ([id number]) on 12/30/2019 11:53:29 AM Referred By: Confirmed By:SNEHA GOODE MD
--- NOTE | 2019-12-30 11:54 | EKG ---
Test Reason : Blood Pressure : / mmHG Vent. Rate : 096 BPM Atrial Rate : 096 BPM P-R Int : 196 ms QRS Dur : 132 ms QT Int : 396 ms P-R-T Axes : 043 -57 020 degrees QTc Int : 500 ms POOR DATA QUALITY, INTERPRETATION MAY BE ADVERSELY AFFECTED SINUS RHYTHM WITH MARKED SINUS ARRHYTHMIA RIGHT BUNDLE BRANCH BLOCK LEFT ANTERIOR FASCICULAR BLOCK BIFASCICULAR BLOCK ABNORMAL ECG WHEN COMPARED WITH ECG OF 12-FEB-2019 01:03, VENT. RATE HAS INCREASED BY 33 BPM (RBBB AND LEFT ANTERIOR FASCICULAR BLOCK) IS NOW PRESENT Confirmed by SNEHA GOODE MD ([id number]) on 12/30/2019 11:54:25 AM Referred By: Confirmed By:SNEHA GOODE MD
--- NOTE | 2019-12-30 13:17 | ECHO ---
Name: ABENA HAYES Exam:Adult Echocardiogram Study Date: 12/30/2019 10:28 AM Age: 69 yrs Reason For Study: SYNCOPE Height: 71 in Weight: 184 lb BSA: 2.0 m2 MMode/2D Measurements & Calculations IVSd: 1.1 cm Ao root diam: 2.8 cm LVIDd: 3.9 cm LA dimension: 3.8 cm LVIDs: 2.7 cm LVPWd: 1.5 cm LVPWs: 1.7 cm EDV(Teich): 64.7 ml ESV(Teich): 27.6 ml LVOT diam: 2.2 cm LAV (MOD-bp): 59.6 ml RV S Raz: 12.4 cm/sec Doppler Measurements & Calculations MV E max raz: 38.3 cm/sec Ao V2 max: 133.8 cm/sec MV A max raz: 62.6 cm/sec Ao max P.2 mmHg MV E/A: 0.61 KYLE(V,D): 3.7 cm2 MV dec time: 0.20 sec LV V1 max P.4 mmHg PA V2 max: 106.4 cm/sec LV V1 max: 126.1 cm/sec PA max P.5 mmHg Med Peak E' Raz: 12.4 cm/sec Med E/e': 3.1 Lat Peak E' Raz: 9.4 cm/sec Lat E/e': 4.1 Left Ventricle The left ventricular size, thickness and function are normal. The left ventricular ejection fraction is normal. Ejection Fraction = 60-65%. The left ventricular wall motion is normal. Right Ventricle The right ventricle is normal in size and function. Atria Normal left and right atrial size and function. Mitral Valve There is no mitral regurgitation noted. Tricuspid Valve There is trace tricuspid regurgitation. There was insufficient TR detected to calculate RV systolic p ressure. Aortic Valve No hemodynamically significant valvular aortic stenosis. No aortic regurgitation is present. Pulmonic Valve There is no pulmonic valvular regurgitation. Great Vessels The aortic root is normal size. Pericardium/Pleura There is no pericardial effusion. Interpretation Summary The left ventricular size, thickness and function are normal The right ventricle is normal in size and function. There is trace tricuspid regurgitation. MD Wallace Cleary 12/30/2019 01:16 PM
--- NOTE | 2019-12-30 13:57 | PN ---
Physical Exam: SUBJECTIVE: Patient seen and examined at bedside. pt currently has no acute complaints. he states that he has times when he gets brief periods of dizziness. OBJECTIVE: Vital Signs Period Temp Pulse Resp BP Sys/Byrd Pulse Ox Last 24 Hr 98.3 F-99.5 F 98-109 15-20 104-131/49-80 94-100 GENERAL: The patient is awake, alert, and fully oriented, in no acute distress. HEAD: Normal with no signs of trauma. LUNGS: Breath sounds equal, clear to auscultation bilaterally, no wheezes, no crackles, no accessory muscle use. HEART: Regular rate and rhythm, S1, S2 ABDOMEN: Soft, nontender, nondistended, normoactive bowel sounds, no guarding EXTREMITIES: 2+ pulses, warm, well-perfused, no edema. SKIN: Warm, dry, normal turgor, no rashes or lesions noted CBC,CMP WBC 8.5 K/mm3 (4.0-10.0) 12/30/19 05:30 RBC 4.07 M/mm3 (4.00-5.60) 12/30/19 05:30 Hgb 12.3 GM/dL (11.7-16.9) 12/30/19 05:30 Hct 35.6 % (35.4-49) 12/30/19 05:30 MCV 87.5 fl (80-96) 12/30/19 05:30 MCH 30.1 pg (25.7-33.7) 12/30/19 05:30 MCHC 34.4 g/dl (32.0-35.9) 12/30/19 05:30 RDW 15.1 % (11.9-15.9) 12/30/19 05:30 Plt Count 239 K/MM3 (134-434) 12/30/19 05:30 MPV 8.0 fl (7.5-11.1) 12/30/19 05:30 Absolute Neuts (auto) 6.8 K/mm3 (1.5-8.0) 12/29/19 17:40 Neutrophils % 76.5 % (42.8-82.8) D 12/29/19 17:40 Lymphocytes % 10.4 % (8-40) D 12/29/19 17:40 Monocytes % 12.3 % (3.8-10.2) H D 12/29/19 17:40 Eosinophils % 0.1 % (0-4.5) D 12/29/19 17:40 Basophils % 0.7 % (0-2.0) 12/29/19 17:40 Nucleated RBC % 0 % (0-0) 12/29/19 17:40 Sodium 136 mmol/L (136-145) 12/30/19 05:30 Potassium 3.4 mmol/L (3.5-5.1) L 12/30/19 05:30 Chloride 103 mmol/L (98-107) 12/30/19 05:30 Carbon Dioxide 22 mmol/L (21-32) 12/30/19 05:30 Anion Gap 12 MMOL/L (8-16) 12/30/19 05:30 BUN 11.3 mg/dL (7-18) 12/30/19 05:30 Creatinine 1.2 mg/dL (0.55-1.3) 12/30/19 05:30 Est GFR (CKD-EPI)AfAm 70.09 12/30/19 05:30 Est GFR (CKD-EPI)NonAf 60.47 12/30/19 05:30 POC Glucometer 125 UNITS (80-120) 12/30/19 12:07 Random Glucose 106 mg/dL (74-106) 12/30/19 05:30 Hemoglobin A1c % 5.4 % (4.2-6.3) 12/30/19 05:30 Lactic Acid 1.7 mmol/L (0.4-2.0) 12/30/19 01:30 Calcium 8.3 mg/dL (8.5-10.1) L 12/30/19 05:30 Phosphorus 3.6 mg/dL (2.5-4.9) 12/29/19 18:54 Magnesium 1.8 mg/dL (1.8-2.4) 12/29/19 18:54 Total Bilirubin 0.4 mg/dL (0.2-1) 12/30/19 05:30 AST 29 U/L (15-37) 12/30/19 05:30 ALT 22 U/L (13-61) 12/30/19 05:30 Alkaline Phosphatase 98 U/L (45-117) 12/30/19 05:30 Creatine Kinase 210 U/L (26-308) 12/29/19 18:54 Creatine Kinase Index No Result Required. 12/29/19 18:54 CK-MB (CK-2) < 1.0 ng/mL (0.5-3.6) 12/29/19 18:54 Troponin I < 0.02 ng/ml (0.00-0.05) 12/30/19 05:30 Total Protein 6.4 g/dl (6.4-8.2) 12/30/19 05:30 Albumin 3.3 g/dl (3.4-5.0) L 12/30/19 05:30 Current Medications Folic Acid (Folic Acid -) 1 mg PO DAILY PENDING SALE TO [facility] Last Admin: 12/30/19 09:20 Dose: 1 mg Heparin Sodium (Porcine) (Heparin -) 5,000 unit SQ TID PENDING SALE TO [facility] Last Admin: 12/30/19 14:38 Dose: 5,000 unit Multivitamins/Minerals/Vitamin C (Tab-A-Vit -) 1 tab PO DAILY PENDING SALE TO [facility] Last Admin: 12/30/19 09:20 Dose: 1 tab Thiamine HCl (Vitamin B1 -) 100 mg PO DAILY PENDING SALE TO [facility] Last Admin: 12/30/19 09:20 Dose: 100 mg ASSESSMENT/PLAN: 69 yo. M PMH HTN, HLD, preDM, alcohol abuse, gout, presenting for syncopal episode. Pt states that he has been having syncopal episodes multiple times this year without physician workup. pt was monitored on tele overnight with multiple episodes of bigeminy Syncope - orthostatic negative - Echo: normal LV function - carotid doppler pending - tele monitoring shows bigeminy, and PVC likely 2/2 electrolyte abnormalities - Neuro consulted - pending EEG - fall precautions - CT head negative for acute pathology New onset RBBB, r/o ACS -cardio consult-- Dr. Villanueva -trop neg x2 -continue tele monitoring -pt should f/u outpt for monitoring BROOK -Cr 1.7 on admission now 1.2 (baseline 1.1) -F/u renal U/S -urine lytes, UA -avoid nephrotoxic meds- Alcohol abuse - no signs of withdrawal -thiamine, multivitamin, folic acid lactic acidoses, 4.0, now improved HTN -holding home BP meds in setting of syncope -monitor BP HLD -resume home atorvastatin 80mg daily Gout -no acute flares -continue home meds -hold home naproxen Pre-diabetes -BGMs ACHS -ISS DVT PPX: heparin sq Dispo continue tele Visit type - Emergency Visit Emergency Visit: No - New Patient This patient is new to me today: No - Critical Care Critical Care patient: No - Discharge Referral Referred to [facility] Med P.C[facility] No ATTENDING PHYSICIAN STATEMENT I saw and evaluated the patient. I reviewed the resident's note and discussed the case with the resident. I agree with the resident's findings and plan as documented. SUBJECTIVE: OBJECTIVE: ASSESSMENT AND PLAN:
--- NOTE | 2019-12-30 15:00 | CON.NEURO ---
Consult - Alcohol/Substance Use Hx Alcohol Use: Yes - Smoking History Smoking history: Former smoker Have you smoked in the past 12 months: No Aproximately how many cigarettes per day: 0 If you are a former smoker, when did you quit?: many years ago Home Medications - Allergies Allergies/Adverse Reactions: Allergies Allergy/AdvReac Type Severity Reaction Status Date / Time Penicillins Allergy Vomiting Verified 02/12/19 10:19 - Home Medications Home Medications: Ambulatory Orders Multivitamins [Multivit ([facility] Formulary)] 1 tab PO DAILY 03/19/16 Allopurinol [Zyloprim -] 100 mg PO DAILY #30 tablet 11/21/16 Naproxen [Naprosyn -] 500 mg PO BID tablet 11/21/16 Amlodipine Besylate/Benazepril [Lotrel 10-20 mg Capsule] 1 tab PO DAILY Atorvastatin Calcium 80 mg PO DAILY 02/12/19 Physical Exam-Neuro Vital Signs: Vital Signs Temperature 98.7 F 12/30/19 14:00 Pulse Rate 97 H 12/30/19 14:00 Respiratory Rate 18 12/30/19 14:00 Blood Pressure 112/58 L 12/30/19 14:00 O2 Sat by Pulse Oximetry (%) 94 L 12/30/19 09:00 Labs: CBC, BMP 12/30/19 05:30 12/30/19 05:30 INR, PTT INR 0.99 (0.83-1.09) 12/29/19 17:40 Assessment/Plan cc Episode of Passing out HPI 69 year old male history of HTN,HLD,PreDM, Alcohol abuse, gout . He came to hospital for episode of passing out , very brief, regained consiousness . He denies any cancer, trauma, fever. THere is no other focal neuological syptoms. Scott has similar episode in psat and work up did not find any significant issue. Patient denies any tonic clonic activity, tongue bite or post ictal confusion. He did have fecal incontinence. Patient has ct head whith was unremarkable PAST MEDICAL HISTORY: as per hpi PAST SURGICAL HISTORY: inguinal hernia repair Social History: Smoking: quit many years ago Alcohol: up to 6pack beer per day but not every day. never completed detox in the past. Drugs: denies Allergies Penicillins Allergy (Verified 02/12/19 10:19) Vomiting HOME MEDICATIONS: Home Medications Medication Instructions Recorded Multivitamins [Multivit ([facility] 1 tab PO DAILY 03/19/16 Formulary)] Allopurinol [Zyloprim -] 100 mg PO DAILY #30 tablet 11/21/16 Naproxen [Naprosyn -] 500 mg PO BID tablet 11/21/16 Amlodipine Besylate/Benazepril 1 tab PO DAILY 02/12/19 [Lotrel 10-20 mg Capsule] Atorvastatin Calcium 80 mg PO DAILY 02/12/19 ROS,FH reviewed in chart NEUROLOGICAL EXAMINATION Alert oriented x 3, speech is normal, afebrile, vss, neck is supple eomi,pupil reactive no face asymmetry, face sensation is normal moving all ext 5/5 all ex,t no rigidity or abnormal movement sensation is normal ct head is unremarkable Assessment/Plan 69 year old male history of HTN,HLD,PreDM, Alcohol abuse, gout, came with syncopal episode, normal neuro exam and ct head unrmrakable. Unlikley to be siezure or tia. Most likey Syncope Plan: no need for mri of brain an routine eeg no need for AED, Continue current work up Thanking you so much Brian Castillo MD
--- NOTE | 2019-12-30 16:46 | CON.CARD ---
Consult Consult Specialty:: Cardiology Referred by:: Hospitalist Reason for Consultation:: syncope - History of Present Illness Chief Complaint: syncope History of Present Illness: 69 year old man with a pmh HTN, HLD, borderline DM, ETOH abuse admitted with syncope. pt states that this episode he felt abdominal pain, nausea and had recurrent vomiting, with associated sweats prior to losing consciousness. states a prior episode occurred while standing in line at a store for a long time with associated dizziness prior to the episode. a third episode he cannot recall. denies chest pain, sob, palpitations, pnd, orthopnea or le edema. - History Source History Provided By: Patient Limitations to Obtaining History: No Limitations - Past Medical History Cardio/Vascular: Yes: HTN, Hyperlipdemia Psych: Yes: Addictions - Alcohol/Substance Use Hx Alcohol Use: Yes - Smoking History Smoking history: Former smoker Have you smoked in the past 12 months: No Aproximately how many cigarettes per day: 0 If you are a former smoker, when did you quit?: many years ago Home Medications - Allergies Allergies/Adverse Reactions: Allergies Allergy/AdvReac Type Severity Reaction Status Date / Time Penicillins Allergy Vomiting Verified 02/12/19 10:19 - Home Medications Home Medications: Ambulatory Orders Multivitamins [Multivit ([facility] Formulary)] 1 tab PO DAILY 03/19/16 Naproxen [Naprosyn -] 500 mg PO BID tablet 11/21/16 Amlodipine Besylate/Benazepril [Lotrel 10-20 mg Capsule] 1 tab PO DAILY Atorvastatin Calcium 80 mg PO DAILY 02/12/19 Colchicine [Colcrys] 0.6 mg PO DAILY 12/30/19 [place]-3 Acid Ethyl Esters [Lovaza -] 2 g PO BID 12/30/19 Family Medical History Family History: Denies Review of Systems - Review of Systems Constitutional: reports: Loss of Appetite Eyes: denies: No Symptoms, Blind Spots, Blurred Vision, Double Vision, Eye Pain , Floaters, Photophobia, Recent Change in Vision, Other HENT: denies: No Symptoms, Difficult Swallowing, Ear Discharge, Ear Pain, Epistaxis, Gingival Bleeding, Hearing Loss, Mouth Swelling, Nasal Congestion, Ocular Prosthesis, Throat Pain, Toothache, Ringing in Ears, Other Neck: denies: No Symptoms, Decreased ROM, Lumps, Pain on Movement, Stiffness, Swollen Glands, Tenderness, Other Cardiovascular: denies: No Symptoms, Chest Pain, Edema, Palpitations, Shortness of Breath, Other Respiratory: denies: No Symptoms, Cough, Exercise Intolerance, Hemoptysis, Orthopnea, PND, Snoring, SOB, SOB on Exertion, Wheezing, Other Gastrointestinal: reports: Abdominal Pain, Nausea. denies: No Symptoms, Bloating, Constipation, Diarrhea, Dysphagia, Indigestion, Melena, Rectal Bleeding, Vomiting, Vomiting Blood, Other Genitourinary: denies: No Symptoms, Burning, Discharge, Dysuria, Flank Pain, Frequency, Hematuria, Incontinence, Lesions, Menses, Pain, Testicular Mass, Testicular Pain, Testicular Swelling, Urgency, Vaginal Bleeding, Other Breasts: denies: No Symptoms Reported, See HPI, Breast Implants, Discharge from Nipple, Lumps, Pain, Skin Changes, Other Musculoskeletal: denies: No Symptoms, Back Pain, Crepitus, Decreased ROM, Extremity Pain, Joint Pain, Joint Swelling, Muscle Pain, Muscle Cramps, Muscle Weakness, Other Integumentary: denies: No Symptoms, Blister, Bruising, Change in Color, Eczema, Erythema, Incision, Lesions, Lump, Pallor, Pruritis, Rash, Wound, Other Neurological: denies: No Symptoms, Change in LOC, Change in Speech, Confusion, Dizziness, Headache, Incoordination, Numbness, Parasthesia, Pre-Existing Deficit , Seizure, Syncope, Tremors, Unsteady Gait, Weakness, Other Endocrine: denies: No Symptoms, Excessive Sweating, Flushing, Increased Hunger, Increased Thirst, Intolerance to Cold, Intolerance to Heat, Unexplained Weight Gain, Unexplained Weight Loss, Other Hematology/Lymphatic: denies: No Symptoms, Easily Bruised, Excessive Bleeding, Swollen Glands, Other Psychiatric: denies: No Symptoms, Altered Sleep Pattern, Anxiety, Depression, Hallucinations, Panic, Paranoia, Suicidal, Other - Risk Factors Known Risk Factors: Yes: Hypercholesterolemia, Hypertension Vital Signs: Vital Signs Temperature 98.7 F 12/30/19 14:00 Pulse Rate 97 H 12/30/19 14:00 Respiratory Rate 18 12/30/19 14:00 Blood Pressure 112/58 L 12/30/19 14:00 O2 Sat by Pulse Oximetry (%) 94 L 12/30/19 09:00 Constitutional: Yes: No Distress, Calm Eyes: Yes: Conjunctiva Clear, EOM Intact HENT: Yes: Atraumatic, Normocephalic Neck: Yes: Supple, Trachea Midline Respiratory: Yes: Regular, CTA Bilaterally. No: Rales, Rhonchi, Wheezes Gastrointestinal: Yes: Normal Bowel Sounds, Soft. No: Distention, Tenderness Cardiovascular: Yes: Regular Rate and Rhythm. No: Bradycardia, Tachycardia, Pulse Irregular, Gallop, Rub, Varicosities JVD: No Carotid Bruit: No PMI: Non-Displaced Heart Sounds: Yes: S1, S2. No: Split S2, S3, S4, Clicks, Gallop, Rub, Bruit Murmur: No: Systolic Murmur, Diastolic Murmur Musculoskeletal: Yes: WNL Extremities: Yes: WNL Edema: No Peripheral Pulses WNL: Yes Peripheral Pulses: 2+ Left Doralis Pedis, 2+ Right Dorsalis Pedis Neurological: Yes: Alert, Oriented Psychiatric: Yes: Alert, Oriented - Other Data Labs, Other Data: CBC, BMP 12/30/19 05:30 12/30/19 05:30 INR, PTT INR 0.99 (0.83-1.09) 12/29/19 17:40 Troponin, BNP 12/29/19 12/29/19 12/30/19 18:54 22:35 05:30 Troponin I < 0.02 < 0.02 < 0.02 Troponin, BNP 12/29/19 12/29/19 12/30/19 18:54 22:35 05:30 Troponin I < 0.02 < 0.02 < 0.02 ekg sinus tach 103bpm, rbbb, lafb, apcs Echo: Report Reviewed Imaging - Results Chest X-ray: Report Reviewed, Image Reviewed EKG: Report Reviewed, Image Reviewed Other: Report Reviewed, Image Reviewed (tele-sinus, frequent pvcs, no sig arrhythmias) Assessment/Plan 69 year old man with a pmh HTN, HLD, borderline DM, ETOH abuse admitted with syncope. pt states that this episode he felt abdominal pain, nausea and had recurrent vomiting, with associated sweats prior to losing consciousness. states a prior episode occurred while standing in line at a store for a long time with associated dizziness prior to the episode. a third episode he cannot recall. denies chest pain, sob, palpitations, pnd, orthopnea or le edema. Syncope -likely vasovagal in the setting of nausea, vomiting. -suspect role of etoh abuse -unlikely primary cardiac event -echo wnl -PVCs on tele likely secondary to electrolyte abnormalities, no sig arrhythmias -replete K and Mg -pt reports having seen a human relations manager across the street but does not recall the name. states he had a stress test and echo approximately 4 months ago and was told they were normal. -no additional inpatient cardiac testing is needed at this time. -[facility] outpatient fup and consideration for longer term event monitoring
[2019-12-30] MEDS ORDERED: POTASSIUM CHLORIDE TABS 20 MEQ TABLET.ER (FP) PO ONE (16:58)
[2019-12-30] MEDS ORDERED: MAGNESIUM OXIDE 400 MG TABLET (FP) PO ONE (17:03)
--- NOTE | 2019-12-30 17:56 | PN ---
Teaching Attending Note Name of Resident: Michelle Roca ATTENDING PHYSICIAN STATEMENT I saw and evaluated the patient. I reviewed the resident's note and discussed the case with the resident. I agree with the resident's findings and plan as documented. SUBJECTIVE: Patient is comfortable with no acute distress. OBJECTIVE: Vital Signs Temperature 98.7 F 12/30/19 14:00 Pulse Rate 97 H 12/30/19 14:00 Respiratory Rate 18 12/30/19 14:00 Blood Pressure 112/58 L 12/30/19 14:00 O2 Sat by Pulse Oximetry (%) 94 L 12/30/19 09:00 GENERAL: The patient is awake, alert, and fully oriented, in no acute distress. HEAD: Normal with no signs of trauma. EYES: PERRL, extraocular movements intact, sclera anicteric, conjunctiva clear. ENT: Ears normal, oropharynx clear without exudates, moist mucous membranes. NECK: Trachea midline, full range of motion, supple. LUNGS: Breath sounds equal, clear to auscultation bilaterally, no wheezes, no crackles, no accessory muscle use. HEART: Regular rate and rhythm, S1, S2 without murmur, rub or gallop. ABDOMEN: Soft, NT,ND, normoactive bowel sounds, no guarding, no rebound, no hepatosplenomegaly, no masses. EXTREMITIES: 2+ pulses, warm, well-perfused, no edema. NEUROLOGICAL: Cranial nerves II through XII grossly intact. Normal speech, gait not observed. PSYCH: Normal mood, normal affect. SKIN: Warm, dry, normal turgor, no rashes or lesions noted CBCD WBC 8.5 K/mm3 (4.0-10.0) 12/30/19 05:30 RBC 4.07 M/mm3 (4.00-5.60) 12/30/19 05:30 Hgb 12.3 GM/dL (11.7-16.9) 12/30/19 05:30 Hct 35.6 % (35.4-49) 12/30/19 05:30 MCV 87.5 fl (80-96) 12/30/19 05:30 MCHC 34.4 g/dl (32.0-35.9) 12/30/19 05:30 RDW 15.1 % (11.9-15.9) 12/30/19 05:30 Plt Count 239 K/MM3 (134-434) 12/30/19 05:30 MPV 8.0 fl (7.5-11.1) 12/30/19 05:30 CMP Sodium 136 mmol/L (136-145) 12/30/19 05:30 Potassium 3.4 mmol/L (3.5-5.1) L 12/30/19 05:30 Chloride 103 mmol/L (98-107) 12/30/19 05:30 Carbon Dioxide 22 mmol/L (21-32) 12/30/19 05:30 Anion Gap 12 MMOL/L (8-16) 12/30/19 05:30 BUN 11.3 mg/dL (7-18) 12/30/19 05:30 Creatinine 1.2 mg/dL (0.55-1.3) 12/30/19 05:30 Random Glucose 106 mg/dL (74-106) 12/30/19 05:30 Calcium 8.3 mg/dL (8.5-10.1) L 12/30/19 05:30 Total Bilirubin 0.4 mg/dL (0.2-1) 12/30/19 05:30 AST 29 U/L (15-37) 12/30/19 05:30 ALT 22 U/L (13-61) 12/30/19 05:30 Alkaline Phosphatase 98 U/L (45-117) 12/30/19 05:30 Total Protein 6.4 g/dl (6.4-8.2) 12/30/19 05:30 Albumin 3.3 g/dl (3.4-5.0) L 12/30/19 05:30 CARDIAC ENZYMES Creatine Kinase 210 U/L (26-308) 12/29/19 18:54 Troponin I < 0.02 ng/ml (0.00-0.05) 12/30/19 05:30 Current Medications Generic Name Dose Route Start Last Admin Trade Name Freq PRN Reason Stop Dose Admin Atorvastatin Calcium 80 mg 12/30/19 22:00 Lipitor - PO HS SUZANNE Colchicine 0.6 mg 12/31/19 10:00 Colcrys PO DAILY SUZANNE Folic Acid 1 mg 12/30/19 10:00 12/30/19 09:20 Folic Acid - PO 1 mg DAILY SUZANNE Administration Heparin Sodium (Porcine) 5,000 unit 12/30/19 06:00 12/30/19 14:38 Heparin - SQ 5,000 unit TID SUZANNE Administration Multivitamins/Minerals/Vitamin C 1 tab 12/30/19 10:00 12/30/19 09:20 Tab-A-Vit - PO 1 tab DAILY SUZANNE Administration Rmobc-9-Kgid Ethyl Esters 2 gm 12/30/19 22:00 Lovaza - PO BID SUZANNE Thiamine HCl 100 mg 12/30/19 10:00 12/30/19 09:20 Vitamin B1 - PO 100 mg DAILY SUZANNE Administration Home Medications Medication Instructions Recorded Multivitamins [Multivit ([facility] 1 tab PO DAILY 03/19/16 Formulary)] Naproxen [Naprosyn -] 500 mg PO BID tablet 11/21/16 Amlodipine Besylate/Benazepril 1 tab PO DAILY 02/12/19 [Lotrel 10-20 mg Capsule] Atorvastatin Calcium 80 mg PO DAILY 02/12/19 Colchicine [Colcrys] 0.6 mg PO DAILY 12/30/19 [place]-3 Acid Ethyl Esters [Lovaza 2 g PO BID 12/30/19 -] EKG: sinus tachy with PAcs with RBB , left anterior fascicular block , Bifascicular block. renal US: no evidence of hydronephrosis or acute pathology ECHO: normal , trace TR CT head negative for acute pathology hemoglobin A1c= 5.4 ASSESSMENT AND PLAN: Patient is a 69yom with PMHx of HTN, HLD, preDM, alcohol abuse, gout, presenting for syncopal episode. # Syncope : likely Vasovagal, no orthostatic noted, carotid doppler , fall precautions #PVcs due to electrolyte abnormalities, potassium above 4, and mg needs to be above 2.2 # BROOK : Cr 1.7-->1.2 improving , US renal Normal , hold home naproxen #HLD: continue atorvastatin 80mg daily # Gout: no acute flares DVT PPX: heparin sq outpatient follow up with cardio -no additional inpatient cardiac testing is needed at this time, as per cardio -recommended outpatient fup and consideration for longer term event monitoring carotid Echo?
[2019-12-30] MEDS: OMEGA-3 ACID ETHYL ESTERS (FATTY-ACIDS) 1 GM CAPSULE (FP) PO SCH (21:40)
[2019-12-30] MEDS: ATORVASTATIN CA 80 MG TABLET (FP) PO SCH (21:45)
[2019-12-30 23:17] LABS: PH,URINE 5.5 (5.0-8.0); URINE APPEARANCE Clear; URINE BILIRUBIN Negative (NEGATIVE); URINE COLOR Yellow; URINE GLUCOSE (UA) Negative (NEGATIVE); URINE KETONE Negative (NEGATIVE); URINE LEUK ESTERASE Negative (NEGATIVE); URINE NITRITE Negative (NEGATIVE); URINE PROTEIN Negative (NEGATIVE); URINE UROBILINOGEN 0.2 mg/dL (0.2-1.0)
--- NOTE | 2019-12-31 01:15 | PDOC ---
Documentation entered by Demian Wyman SCRIBE, acting as scribe for Pedro Lopez DO. Pedro Lopez DO: This documentation has been prepared by the Garo silva Xhesika, SCRIBE, under my direction and personally reviewed by me in its entirety. I confirm that the documentation accurately reflects all work, treatment, procedures, and medical decision making performed by me. Attending Attestation - Resident Resident Name: Refugio Kessler - [facility] HPI: 12/29/19 17:53 The patient is a 69 year old male with a significant PMH of hypertension, hyperlipidemia, borderline diabetes who presents to the emergency department s/ p syncopal episode while at the [facility]. The patient states he endorsed episodes of lightheaded, nausea and dizziness prior to passing out. Pt does not recall hitting his head, next thing he knew he woke up on the floor. Pt states he drank 1 beer earlier and he usually only drinks beer. Pt denies any seizure activity. Denies headaches, midline back pain or paresthesia of upper extremities. Denies abdominal pain or hip pain. Allergies: Penicillins - Physicial Exam PE: 12/29/19 17:55 GENERAL: Well developed, well nourished. Awake and alert. No acute distress. HEENT: Normocephalic, atraumatic. PERRLA, EOMI. No conjunctival pallor. Sclera are non- icteric. Moist mucous membranes. Oropharynx is clear. NECK: Supple. Full ROM. No JVD. Carotid pulses 2+ and symmetric, without bruits. No thyromegaly. No lymphadenopathy. CARDIOVASCULAR: Regular rate and rhythm. No murmurs, rubs, or gallops. Distal pulses are 2+ and symmetric. PULMONARY: No evidence of respiratory distress. Lungs clear to auscultation bilaterally. No wheezing, rales or rhonchi. ABDOMINAL: Soft. Non-tender. Non-distended. No rebound or guarding. No organomegaly. Normoactive bowel sounds. MUSCULOSKELETAL Normal range of motion at all joints. No bony deformities or tenderness. No CVA tenderness. EXTREMITIES: No cyanosis. No clubbing. No edema. No calf tenderness. SKIN: Warm and dry. Normal capillary refill. No rashes. No jaundice. NEUROLOGICAL: Alert, awake, appropriate. Cranial nerves 2-12 intact. No deficits to light touch and temperature in face, upper extremities and lower extremities. No motor deficits in the in face, upper extremities and lower extremities. Normoreflexic in the upper and lower extremities. Normal speech. Toes are down- going bilaterally. Gait is normal without ataxia. PSYCHIATRIC: Cooperative. Good eye contact. Appropriate mood and affect. - Medical Decision Making 12/29/19 17:59 The patient is a 69 year old male who presents to the emergency department s/p syncope episode. EKG performed at 17:17: normal sinus rhythm at 96 bpm with right bundle branch block, L anterior fascicular block with borderline QTC elongation. Will evaluate for atraumatic injury Check Magnesium, Troponin, Cardiac enzymes Admit to telly for syncope And reassess patient
[2019-12-31] MEDS: HEPARIN NA (PORCINE) 5,000 UNITS/ML 1ML VIAL SQ SCH ×3 (05:32→21:45)
[2019-12-31 08:30] LABS: HEMATOCRIT 36.2 % (35.4-49); HEMOGLOBIN 12.5 GM/dL (11.7-16.9); MCH 30.8 pg (25.7-33.7); MCHC 34.6 g/dl (32.0-35.9); MEAN CELL VOLUME 88.9 fl (80-96); MEAN PLT VOLUME 7.7 fl (7.5-11.1); PLATELET COUNT 238 K/MM3 (134-434); RBC 4.08 M/mm3 (4.00-5.60); RDW 15.3 % (11.9-15.9); WHITE BLOOD COUNT 5.9 K/mm3 (4.0-10.0)
[2019-12-31 08:35] LABS: ALBUMIN 3.1 g/dl (3.4-5.0); BILIRUBIN,TOTAL 0.5 mg/dL (0.2-1); BLOOD UREA NITROGEN 11.7 mg/dL (7-18); CALCIUM 8.5 mg/dL (8.5-10.1); MAGNESIUM 1.9 mg/dL (1.8-2.4); PHOSPHOROUS 3.1 mg/dL (2.5-4.9); POTASSIUM 3.4 mmol/L (3.5-5.1); TOT PROT 6.4 g/dl (6.4-8.2)
--- NOTE | 2019-12-31 10:01 | PN ---
Progress Note (short form) - Note Progress Note: 69 year old male history of HTN,HLD,PreDM, Alcohol abuse, gout . He came to hospital for episode of passing out , very brief, regained consiousness . He denies any cancer, trauma, fever. THere is no other focal neuological syptoms. Patinayla has similar episode in psat and work up did not find any significant issue. Patient denies any tonic clonic activity, tongue bite or post ictal confusion. He did have fecal incontinence. Patient has ct head whith was unremarkable eeg is pending, pateint is feeling better, no new focal neurological symptms NEUROLOGICAL EXAMINATION Alert oriented x 3, speech is normal, afebrile, vss, neck is supple eomi,pupil reactive no face asymmetry, face sensation is normal moving all ext 5/5 all ex,t no rigidity or abnormal movement sensation is normal ct head is unremarkable eeg pending Assessment/Plan 69 year old male history of HTN,HLD,PreDM, Alcohol abuse, gout, came with syncopal episode, normal neuro exam and ct head unrmrakable. Unlikley to be siezure or tia. Most likey Syncope Plan: no need for mri of brain eeg is pending no need for AED, Continue current work up Thanking you so much Biran Castilol MD
[2019-12-31] MEDS ORDERED: PT OWN MED DRAWER 7, Y5N ONE ×2 (12:28→21:38)
[2019-12-31] MEDS: ASPIRIN COATED 81 MG TABLET.EC PO SCH (12:34)
[2019-12-31] MEDS: COLCHICINE 0.6 MG CAP PO SCH (12:34)
[2019-12-31] MEDS: OMEGA-3 ACID ETHYL ESTERS (FATTY-ACIDS) 1 GM CAPSULE (FP) PO SCH ×2 (12:35→21:46)
[2019-12-31] MEDS: THIAMINE HCL 100 MG TABLET (FP) PO SCH (12:35)
[2019-12-31] MEDS: FOLIC ACID 1 MG TABLET (FP) PO SCH (12:35)
[2019-12-31] MEDS: MULTIVITAMINS (DAILY MVI) TABLET (FP) PO SCH (12:40)
--- NOTE | 2019-12-31 16:52 | PN ---
Physical Exam: SUBJECTIVE: Patient seen and examined at bedside. Pt has no acute complaints. denies CP/ SOB, palpitations OBJECTIVE: Vital Signs Period Temp Pulse Resp BP Sys/Byrd Pulse Ox Last 24 Hr 98.1 F-98.9 F 83-94 16-20 111-124/59-79 94-96 GENERAL: The patient is awake, alert, and fully oriented, in no acute distress. HEAD: Normal with no signs of trauma. LUNGS: Breath sounds equal, clear to auscultation bilaterally, no wheezes, no crackles, no accessory muscle use. HEART: Regular rate and rhythm, S1, S2 ABDOMEN: Soft, nontender, nondistended, normoactive bowel sounds EXTREMITIES: 2+ pulses, warm, well-perfused, no edema. SKIN: Warm, dry, normal turgor, no rashes or lesions noted Laboratory Results - last 24 hr 12/30/19 12/30/19 12/30/19 17:11 21:38 22:40 WBC RBC Hgb Hct MCV MCH MCHC RDW Plt Count MPV Sodium Potassium Chloride Carbon Dioxide Anion Gap BUN Creatinine Est GFR (CKD-EPI)AfAm Est GFR (CKD-EPI)NonAf POC Glucometer 126 126 Random Glucose Calcium Phosphorus Magnesium Total Bilirubin AST ALT Alkaline Phosphatase Total Protein Albumin Urine Color Yellow Urine Appearance Clear Urine pH 5.5 Ur Specific [place] 1.010 Urine Protein Negative Urine Glucose (UA) Negative Urine Ketones Negative Urine Blood Trace-intact Urine Nitrite Negative Urine Bilirubin Negative Urine Urobilinogen 0.2 Ur Leukocyte Esterase Negative 12/31/19 12/31/19 12/31/19 05:28 07:50 07:50 WBC 5.9 RBC 4.08 Hgb 12.5 Hct 36.2 MCV 88.9 MCH 30.8 MCHC 34.6 RDW 15.3 Plt Count 238 MPV 7.7 Sodium 138 Potassium 3.4 L Chloride 106 Carbon Dioxide 26 Anion Gap 6 L BUN 11.7 Creatinine 1.0 Est GFR (CKD-EPI)AfAm 87.37 Est GFR (CKD-EPI)NonAf 75.39 POC Glucometer 111 Random Glucose 120 H Calcium 8.5 Phosphorus 3.1 Magnesium 1.9 Total Bilirubin 0.5 AST 28 ALT 24 Alkaline Phosphatase 102 Total Protein 6.4 Albumin 3.1 L Urine Color Urine Appearance Urine pH Ur Specific [place] Urine Protein Urine Glucose (UA) Urine Ketones Urine Blood Urine Nitrite Urine Bilirubin Urine Urobilinogen Ur Leukocyte Esterase Current Medications Aspirin (Ecotrin -) 81 mg PO DAILY [facility] Last Admin: 12/31/19 12:34 Dose: 81 mg Atorvastatin Calcium (Lipitor -) 80 mg PO HS [facility] Last Admin: 12/30/19 21:45 Dose: 80 mg Colchicine (Colcrys) 0.6 mg PO DAILY [facility] Last Admin: 12/31/19 12:34 Dose: 0.6 mg Folic Acid (Folic Acid -) 1 mg PO DAILY [facility] Last Admin: 12/31/19 12:35 Dose: 1 mg Heparin Sodium (Porcine) (Heparin -) 5,000 unit SQ TID [facility] Last Admin: 12/31/19 14:58 Dose: 5,000 unit Multivitamins/Minerals/Vitamin C (Tab-A-Vit -) 1 tab PO DAILY [facility] Last Admin: 12/31/19 12:40 Dose: 1 tab Pxtqf-6-Vula Ethyl Esters (Lovaza -) 2 gm PO BID [facility] Last Admin: 12/31/19 12:35 Dose: 2 gm Thiamine HCl (Vitamin B1 -) 100 mg PO DAILY [facility] Last Admin: 12/31/19 12:35 Dose: 100 mg CTA neck: IMPRESSION: See discussion above Prominent plaques with calcifications at the left common carotid bifurcation/bulb with 50% narrowing of its lumen, hemodynamically significant stenosis. Prominent plaque with calcifications at the right common carotid bifurcation without evidence of hemodynamically significant stenosis. Small calcified plaques in the cavernous carotid artery, bilaterally. Both vertebral arteries appear unremarkable Intracranially, no gross aneurysm, focal hemodynamically significant stenosis, major artery cutoff or vascular malformation are identified. No acute intracranial pathology is identified. Multilevel degenerative disc disease, mild disc osteophyte complex and significant bilateral facet hypertrophy. Carotid Duplex: Impression: Moderate-size plaques at the right common carotid bifurcation/bulb without evidence of hemodynamically significant stenosis. Moderate-size plaques at the left common carotid bifurcation/bulb and proximal internal carotid artery without evidence of hemodynamically significant stenosis. However, there is low peak systolic velocity in the proximal left internal carotid artery of 32 cm/s . Low peak systolic velocity may be indicative of severe stenosis. Further evaluation with CTA of the neck is needed for further assessment of the degree of stenosis ASSESSMENT/PLAN: 69 yo. M PMH HTN, HLD, preDM, alcohol abuse, gout, presenting for syncopal episode. Pt states that he has been having syncopal episodes multiple times this year without physician workup. pt was monitored on tele overnight with multiple episodes of bigeminy Syncope - orthostatic negative - Echo: normal LV function - carotid doppler, CTA neck showing hemodynamically significant stenosis of L common carotid. Vascular consult , Dr. Bedoya - tele monitoring shows bigeminy, and PVC likely 2/2 electrolyte abnormalities - Neuro consulted - pending EEG - fall precautions - CT head negative for acute pathology New onset RBBB, r/o ACS -cardio consult-- Dr. Villanueva -trop neg x2 -continue tele monitoring -pt should f/u outpt for monitoring BROOK -Cr 1.7 on admission now 1.2 (baseline 1.1) -F/u renal U/S -urine lytes, UA -avoid nephrotoxic meds- Alcohol abuse - no signs of withdrawal -thiamine, multivitamin, folic acid lactic acidoses, 4.0, now improved HTN -holding home BP meds in setting of syncope -monitor BP HLD -resume home atorvastatin 80mg daily Gout -no acute flares -continue home meds -hold home naproxen Pre-diabetes -BGMs ACHS -ISS DVT PPX: heparin sq Dispo continue tele Visit type - Emergency Visit Emergency Visit: No - New Patient This patient is new to me today: No - Critical Care Critical Care patient: No - Discharge Referral Referred to [facility] Med P.C.: No ATTENDING PHYSICIAN STATEMENT I saw and evaluated the patient. I reviewed the resident's note and discussed the case with the resident. I agree with the resident's findings and plan as documented. SUBJECTIVE: OBJECTIVE: ASSESSMENT AND PLAN:
--- NOTE | 2019-12-31 17:24 | PN ---
Teaching Attending Note Name of Resident: Michelle Roca ATTENDING PHYSICIAN STATEMENT I saw and evaluated the patient. I reviewed the resident's note and discussed the case with the resident. I agree with the resident's findings and plan as documented. SUBJECTIVE: Patient is comfortable with no acute distress, no shortness of breath. No nausea or vomiting. Vital Signs Temperature 98.5 F 12/31/19 16:15 Pulse Rate 83 12/31/19 16:15 Respiratory Rate 20 12/31/19 16:15 Blood Pressure 122/79 12/31/19 16:15 O2 Sat by Pulse Oximetry (%) 96 12/31/19 09:00 GENERAL: The patient is awake, alert, and fully oriented, in no acute distress. HEAD: Normal with no signs of trauma. EYES: PERRL, extraocular movements intact, sclera anicteric, conjunctiva clear. ENT: Ears normal, oropharynx clear without exudates, moist mucous membranes. NECK: Trachea midline, full range of motion, supple. no bruit LUNGS: Breath sounds equal, clear to auscultation bilaterally, no wheezes, no crackles, no accessory muscle use. HEART: Regular rate and rhythm, S1, S2 without murmur, rub or gallop. ABDOMEN: Soft, NT,ND, normoactive bowel sounds, no guarding, no rebound, no hepatosplenomegaly, no masses. EXTREMITIES: 2+ pulses, warm, well-perfused, no edema. NEUROLOGICAL: Cranial nerves II through XII grossly intact. Normal speech, gait not observed. PSYCH: Normal mood, normal affect. SKIN: Warm, dry, normal turgor, no rashes or lesions noted CBCD WBC 5.9 K/mm3 (4.0-10.0) 12/31/19 07:50 RBC 4.08 M/mm3 (4.00-5.60) 12/31/19 07:50 Hgb 12.5 GM/dL (11.7-16.9) 12/31/19 07:50 Hct 36.2 % (35.4-49) 12/31/19 07:50 MCV 88.9 fl (80-96) 12/31/19 07:50 MCHC 34.6 g/dl (32.0-35.9) 12/31/19 07:50 RDW 15.3 % (11.9-15.9) 12/31/19 07:50 Plt Count 238 K/MM3 (134-434) 12/31/19 07:50 MPV 7.7 fl (7.5-11.1) 12/31/19 07:50 CMP Sodium 138 mmol/L (136-145) 12/31/19 07:50 Potassium 3.4 mmol/L (3.5-5.1) L 12/31/19 07:50 Chloride 106 mmol/L (98-107) 12/31/19 07:50 Carbon Dioxide 26 mmol/L (21-32) 12/31/19 07:50 Anion Gap 6 MMOL/L (8-16) L 12/31/19 07:50 BUN 11.7 mg/dL (7-18) 12/31/19 07:50 Creatinine 1.0 mg/dL (0.55-1.3) 12/31/19 07:50 Random Glucose 120 mg/dL (74-106) H 12/31/19 07:50 Calcium 8.5 mg/dL (8.5-10.1) 12/31/19 07:50 Total Bilirubin 0.5 mg/dL (0.2-1) 12/31/19 07:50 AST 28 U/L (15-37) 12/31/19 07:50 ALT 24 U/L (13-61) 12/31/19 07:50 Alkaline Phosphatase 102 U/L (45-117) 12/31/19 07:50 Total Protein 6.4 g/dl (6.4-8.2) 12/31/19 07:50 Albumin 3.1 g/dl (3.4-5.0) L 12/31/19 07:50 CARDIAC ENZYMES Creatine Kinase 210 U/L (26-308) 12/29/19 18:54 Troponin I < 0.02 ng/ml (0.00-0.05) 12/30/19 05:30 CBCD WBC 5.9 K/mm3 (4.0-10.0) 12/31/19 07:50 RBC 4.08 M/mm3 (4.00-5.60) 12/31/19 07:50 Hgb 12.5 GM/dL (11.7-16.9) 12/31/19 07:50 Hct 36.2 % (35.4-49) 12/31/19 07:50 MCV 88.9 fl (80-96) 12/31/19 07:50 MCHC 34.6 g/dl (32.0-35.9) 12/31/19 07:50 RDW 15.3 % (11.9-15.9) 12/31/19 07:50 Plt Count 238 K/MM3 (134-434) 12/31/19 07:50 MPV 7.7 fl (7.5-11.1) 12/31/19 07:50 CMP Sodium 138 mmol/L (136-145) 12/31/19 07:50 Potassium 3.4 mmol/L (3.5-5.1) L 12/31/19 07:50 Chloride 106 mmol/L (98-107) 12/31/19 07:50 Carbon Dioxide 26 mmol/L (21-32) 12/31/19 07:50 Anion Gap 6 MMOL/L (8-16) L 12/31/19 07:50 BUN 11.7 mg/dL (7-18) 12/31/19 07:50 Creatinine 1.0 mg/dL (0.55-1.3) 12/31/19 07:50 Random Glucose 120 mg/dL (74-106) H 12/31/19 07:50 Calcium 8.5 mg/dL (8.5-10.1) 12/31/19 07:50 Total Bilirubin 0.5 mg/dL (0.2-1) 12/31/19 07:50 AST 28 U/L (15-37) 12/31/19 07:50 ALT 24 U/L (13-61) 12/31/19 07:50 Alkaline Phosphatase 102 U/L (45-117) 12/31/19 07:50 Total Protein 6.4 g/dl (6.4-8.2) 12/31/19 07:50 Albumin 3.1 g/dl (3.4-5.0) L 12/31/19 07:50 CARDIAC ENZYMES Creatine Kinase 210 U/L (26-308) 12/29/19 18:54 Troponin I < 0.02 ng/ml (0.00-0.05) 12/30/19 05:30 Home Medications Medication Instructions Recorded Multivitamins [Multivit ([facility] 1 tab PO DAILY 03/19/16 Formulary)] Naproxen [Naprosyn -] 500 mg PO BID tablet 11/21/16 Amlodipine Besylate/Benazepril 1 tab PO DAILY 02/12/19 [Lotrel 10-20 mg Capsule] Atorvastatin Calcium 80 mg PO DAILY 02/12/19 Colchicine [Colcrys] 0.6 mg PO DAILY 12/30/19 [place]-3 Acid Ethyl Esters [Lovaza 2 g PO BID 12/30/19 -] EKG: sinus tachy with PAcs with RBB , left anterior fascicular block , Bifascicular block. renal US: no evidence of hydronephrosis or acute pathology ECHO: normal , trace TR CT head negative for acute pathology hemoglobin A1c= 5.4 ASSESSMENT AND PLAN: Patient is a 69yom with PMHx of HTN, HLD, preDM, alcohol abuse, gout, presenting for syncopal episode. # Syncope : likely Vasovagal, no orthostatics, carotid doppler, fall precautions Carotid duplex: moderate size plaques at the right common carotid bifurcation/ bulb and proximal internal carotid artery without evidence of hemodynamically significant stenosis , moderate size plaques at the left common carotid bifurcation/bulb and proximal internal carotid artery without evidence of hemodynamically significant stenosis. CTA will be ordered. will get Vascular consult #PVcs due to electrolyte abnormalities, potassium above 4, and mg needs to be above 2.2, will give daily Kdur # BROOK : Cr 1.7-->1.2-->1.0 improving , US renal Normal , hold home naproxen #HLD: continue atorvastatin 80mg daily # Gout: no acute flares DVT PPX: heparin sq As per Cardio: outpatient follow up with cardio -no additional inpatient cardiac testing is needed at this time, as per cardio -recommended outpatient fup and consideration for longer term event monitoring
[2019-12-31] MEDS: ATORVASTATIN CA 80 MG TABLET (FP) PO SCH (21:46)
[2020-01-01] MEDS: HEPARIN NA (PORCINE) 5,000 UNITS/ML 1ML VIAL SQ SCH ×3 (06:08→21:48)
[2020-01-01 06:37] LABS: HEMATOCRIT 37.5 % (35.4-49); HEMOGLOBIN 12.9 GM/dL (11.7-16.9); MCH 30.6 pg (25.7-33.7); MCHC 34.3 g/dl (32.0-35.9); MEAN CELL VOLUME 89.2 fl (80-96); MEAN PLT VOLUME 8.2 fl (7.5-11.1); PLATELET COUNT 238 K/MM3 (134-434); RBC 4.21 M/mm3 (4.00-5.60); RDW 15.4 % (11.9-15.9); WHITE BLOOD COUNT 5.2 K/mm3 (4.0-10.0)
[2020-01-01 06:58] LABS: BILIRUBIN,TOTAL 0.4 mg/dL (0.2-1); BLOOD UREA NITROGEN 9.5 mg/dL (7-18); CALCIUM 8.1 mg/dL (8.5-10.1); CREATININE 0.9 mg/dL (0.55-1.3); MAGNESIUM 1.6 mg/dL (1.8-2.4); PHOSPHOROUS 3.4 mg/dL (2.5-4.9); POTASSIUM 3.3 mmol/L (3.5-5.1); TOT PROT 6.4 g/dl (6.4-8.2)
--- NOTE | 2020-01-01 09:31 | PN ---
Progress Note (short form) - Note Progress Note: Patient is comfortable with no acute distress. no shortness of breath. Vital Signs Temperature 98.8 F 01/01/20 06:00 Pulse Rate 85 01/01/20 06:00 Respiratory Rate 18 01/01/20 06:00 Blood Pressure 114/69 01/01/20 06:00 O2 Sat by Pulse Oximetry (%) 95 12/31/19 21:00 GENERAL: The patient is awake, alert, and fully oriented, in no acute distress. HEAD: Normal with no signs of trauma. EYES: PERRL, extraocular movements intact, sclera anicteric, conjunctiva clear. ENT: Ears normal, oropharynx clear without exudates, moist mucous membranes. NECK: Trachea midline, full range of motion, supple. LUNGS: Breath sounds equal, clear to auscultation bilaterally, no wheezes, no crackles, no accessory muscle use. HEART: Regular rate and rhythm, S1, S2 +, no rub or gallop. ABDOMEN: Soft, NT,ND, normoactive bowel sounds, no guarding, no rebound, no hepatosplenomegaly, no masses. EXTREMITIES: 2+ pulses, warm, well-perfused, no edema. NEUROLOGICAL: Cranial nerves II through XII grossly intact. Normal speech, gait not observed. PSYCH: Normal mood, normal affect. SKIN: Warm, dry, normal turgor, no rashes or lesions noted CBCD WBC 5.2 K/mm3 (4.0-10.0) 01/01/20 05:30 RBC 4.21 M/mm3 (4.00-5.60) 01/01/20 05:30 Hgb 12.9 GM/dL (11.7-16.9) 01/01/20 05:30 Hct 37.5 % (35.4-49) 01/01/20 05:30 MCV 89.2 fl (80-96) 01/01/20 05:30 MCHC 34.3 g/dl (32.0-35.9) 01/01/20 05:30 RDW 15.4 % (11.9-15.9) 01/01/20 05:30 Plt Count 238 K/MM3 (134-434) 01/01/20 05:30 MPV 8.2 fl (7.5-11.1) 01/01/20 05:30 CMP Sodium 137 mmol/L (136-145) 01/01/20 05:30 Potassium 3.3 mmol/L (3.5-5.1) L 01/01/20 05:30 Chloride 103 mmol/L (98-107) 01/01/20 05:30 Carbon Dioxide 26 mmol/L (21-32) 01/01/20 05:30 Anion Gap 8 MMOL/L (8-16) 01/01/20 05:30 BUN 9.5 mg/dL (7-18) 01/01/20 05:30 Creatinine 0.9 mg/dL (0.55-1.3) 01/01/20 05:30 Random Glucose 122 mg/dL (74-106) H 01/01/20 05:30 Calcium 8.1 mg/dL (8.5-10.1) L 01/01/20 05:30 Total Bilirubin 0.4 mg/dL (0.2-1) 01/01/20 05:30 AST 29 U/L (15-37) 01/01/20 05:30 ALT 24 U/L (13-61) 01/01/20 05:30 Alkaline Phosphatase 108 U/L (45-117) 01/01/20 05:30 Total Protein 6.4 g/dl (6.4-8.2) 01/01/20 05:30 Albumin 3.0 g/dl (3.4-5.0) L 01/01/20 05:30 CARDIAC ENZYMES Creatine Kinase 210 U/L (26-308) 12/29/19 18:54 Troponin I < 0.02 ng/ml (0.00-0.05) 12/30/19 05:30 Home Medications Medication Instructions Recorded Multivitamins [Multivit ([facility] 1 tab PO DAILY 03/19/16 Formulary)] Naproxen [Naprosyn -] 500 mg PO BID tablet 11/21/16 Amlodipine Besylate/Benazepril 1 tab PO DAILY 02/12/19 [Lotrel 10-20 mg Capsule] Atorvastatin Calcium 80 mg PO DAILY 02/12/19 Colchicine [Colcrys] 0.6 mg PO DAILY 12/30/19 [place]-3 Acid Ethyl Esters [Lovaza 2 g PO BID 12/30/19 -] Current Medications Generic Name Dose Route Start Last Admin Trade Name Freq PRN Reason Stop Dose Admin Aspirin 81 mg 12/31/19 10:30 12/31/19 12:34 Ecotrin - PO 81 mg DAILY SUZANNE Administration Atorvastatin Calcium 80 mg 12/30/19 22:00 12/31/19 21:46 Lipitor - PO 80 mg HS SUZANNE Administration Colchicine 0.6 mg 12/31/19 10:00 12/31/19 12:34 Colcrys PO 0.6 mg DAILY SUZANNE Administration Folic Acid 1 mg 12/30/19 10:00 12/31/19 12:35 Folic Acid - PO 1 mg DAILY SUZANNE Administration Heparin Sodium (Porcine) 5,000 unit 12/30/19 06:00 01/01/20 06:08 Heparin - SQ 5,000 unit TID SUZANNE Administration Multivitamins/Minerals/Vitamin C 1 tab 12/30/19 10:00 12/31/19 12:40 Tab-A-Vit - PO 1 tab DAILY SUZANNE Administration [id number] Ethyl Esters 2 gm 12/30/19 22:00 12/31/19 21:46 Lovaza - PO 2 gm BID SUZANNE Administration Thiamine HCl 100 mg 12/30/19 10:00 12/31/19 12:35 Vitamin B1 - PO 100 mg DAILY SUZANNE Administration EKG: sinus tachy with PAcs with RBB , left anterior fascicular block , Bifascicular block. renal US: no evidence of hydronephrosis or acute pathology ECHO: normal , trace TR CT head negative for acute pathology hemoglobin A1c= 5.4 ASSESSMENT AND PLAN: Patient is a 69yom with PMHx of HTN, HLD, preDM, alcohol abuse, gout, presenting for syncopal episode. #Syncope : likely Vasovagal, no orthostatics, carotid doppler, fall precautions Carotid duplex: moderate size plaques at the right common carotid bifurcation/ bulb and proximal internal carotid artery without evidence of hemodynamically significant stenosis , moderate size plaques at the left common carotid bifurcation/bulb and proximal internal carotid artery without evidence of hemodynamically significant stenosis. CTA: Prominant plaques with calcifications at left common carotid bifurc.buld with 50% narrowing of the lumen , hemodynamically significant stenosis. will consult dr Bedoya for further care. #PVcs due to electrolyte abnormalities, potassium above 4, and mg needs to be above 2.2, will give daily Kdur # BROOK : Cr 1.7-->1.2-->1.0--0.9 improved , US renal Normal , hold home naproxen #HLD: continue atorvastatin 80mg daily # Gout: no acute flares DVT PPX: heparin sq As per Cardio: outpatient follow up with cardio -no additional inpatient cardiac testing is needed at this time, as per cardio -recommended outpatient fup and consideration for longer term event monitoring Visit type - Emergency Visit Emergency Visit: Yes ED Registration Date: 12/29/19 Care time: The patient presented to the Emergency Department on the above date and was hospitalized for further evaluation of their emergent condition. - New Patient This patient is new to me today: No - Critical Care Critical Care patient: No - Discharge Referral Referred to [facility] Med P.C.: Yes Physician Referral: Brian Bedoya DO ([facility])
[2020-01-01] MEDS ORDERED: PT OWN MED DRAWER 7, Y5N ONE ×3 (09:47→21:42)
[2020-01-01] MEDS: COLCHICINE 0.6 MG CAP PO SCH (09:49)
[2020-01-01] MEDS: ASPIRIN COATED 81 MG TABLET.EC PO SCH (09:50)
[2020-01-01] MEDS: OMEGA-3 ACID ETHYL ESTERS (FATTY-ACIDS) 1 GM CAPSULE (FP) PO SCH ×2 (09:50→21:48)
[2020-01-01] MEDS: MULTIVITAMINS (DAILY MVI) TABLET (FP) PO SCH (09:50)
[2020-01-01] MEDS: FOLIC ACID 1 MG TABLET (FP) PO SCH (09:50)
[2020-01-01] MEDS ORDERED: POTASSIUM CHLORIDE TABS 20 MEQ TABLET.ER (FP) PO ONE (10:04)
[2020-01-01] MEDS: THIAMINE HCL 100 MG TABLET (FP) PO SCH (10:39)
--- NOTE | 2020-01-01 13:05 | PN ---
Progress Note (short form) - Note Progress Note: 69 year old male history of HTN,HLD,PreDM, Alcohol abuse, gout . He came to hospital for episode of passing out , very brief, regained consiousness . He denies any cancer, trauma, fever. THere is no other focal neuological syptoms. Scott has similar episode in psat and work up did not find any significant issue. Patient denies any tonic clonic activity, tongue bite or post ictal confusion. He did have fecal incontinence. Patient has ct head whith was unremarkable patient has right ica 50 percent stenosis, patient NEUROLOGICAL EXAMINATION Alert oriented x 3, speech is normal, afebrile, vss, neck is supple eomi,pupil reactive no face asymmetry, face sensation is normal moving all ext 5/5 all ex,t no rigidity or abnormal movement sensation is normal ct head is unremarkable cta of neck was reviewed eeg pending vascular consult pending for right ica 50 percent stenosis Assessment/Plan 69 year old male history of HTN,HLD,PreDM, Alcohol abuse, gout, came with syncopal episode, normal neuro exam and ct head unrmrakable. Unlikley to be siezure or tia. Most likey Syncope carotid stenosis 50 percent , most likley incidental, unlikley to be surgical candidate , waiting for vascula rsurgery. Plan: no need for mri of brain eeg is pending no need for AED, Continue current work up Thanking you so much Brian Castillo MD
[2020-01-01] MEDS: ATORVASTATIN CA 80 MG TABLET (FP) PO SCH (21:48)
[2020-01-01] MEDS: POTASSIUM CHLORIDE TABS 20 MEQ TABLET.ER (FP) PO SCH (21:48)
[2020-01-02] MEDS: HEPARIN NA (PORCINE) 5,000 UNITS/ML 1ML VIAL SQ SCH (05:49)
[2020-01-02] MEDS ORDERED: PT OWN MED DRAWER 7, Y5N ONE (09:52)
[2020-01-02] MEDS: COLCHICINE 0.6 MG CAP PO SCH (09:57)
[2020-01-02] MEDS: ASPIRIN COATED 81 MG TABLET.EC PO SCH (09:57)
[2020-01-02] MEDS: POTASSIUM CHLORIDE TABS 20 MEQ TABLET.ER (FP) PO SCH (09:57)
[2020-01-02] MEDS: MULTIVITAMINS (DAILY MVI) TABLET (FP) PO SCH (09:57)
[2020-01-02] MEDS: OMEGA-3 ACID ETHYL ESTERS (FATTY-ACIDS) 1 GM CAPSULE (FP) PO SCH (09:57)
[2020-01-02] MEDS: THIAMINE HCL 100 MG TABLET (FP) PO SCH (09:57)
[2020-01-02] MEDS: FOLIC ACID 1 MG TABLET (FP) PO SCH (09:57)
--- NOTE | 2020-01-02 10:29 | PN ---
Teaching Attending Note Name of Resident: Michelle Roca ATTENDING PHYSICIAN STATEMENT I saw and evaluated the patient. I reviewed the resident's note and discussed the case with the resident. I agree with the resident's findings and plan as documented. SUBJECTIVE: Patient is comfortable with no acute distress. OBJECTIVE: Vital Signs Temperature 97.9 F 01/02/20 06:00 Pulse Rate 83 01/02/20 06:00 Respiratory Rate 18 01/02/20 06:00 Blood Pressure 129/77 01/02/20 06:00 O2 Sat by Pulse Oximetry (%) 96 01/01/20 21:00 GENERAL: The patient is awake, alert, and fully oriented, in no acute distress. HEAD: Normal with no signs of trauma. EYES: PERRL, extraocular movements intact, sclera anicteric, conjunctiva clear. ENT: Ears normal, oropharynx clear without exudates, moist mucous membranes. NECK: Trachea midline, full range of motion, supple. LUNGS: Breath sounds equal, clear to auscultation bilaterally, no wheezes, no crackles, no accessory muscle use. HEART: Regular rate and rhythm, S1, S2 +, no rub or gallop. ABDOMEN: Soft, NT, ND, normoactive bowel sounds, no guarding, no rebound, no hepatosplenomegaly, no masses. EXTREMITIES: 2+ pulses, warm, well-perfused, no edema. NEUROLOGICAL: Cranial nerves II through XII grossly intact. Normal speech, gait is steady. PSYCH: Normal mood, normal affect. SKIN: Warm, dry, normal turgor, no rashes or lesions noted CBCD WBC 5.2 K/mm3 (4.0-10.0) 01/01/20 05:30 RBC 4.21 M/mm3 (4.00-5.60) 01/01/20 05:30 Hgb 12.9 GM/dL (11.7-16.9) 01/01/20 05:30 Hct 37.5 % (35.4-49) 01/01/20 05:30 MCV 89.2 fl (80-96) 01/01/20 05:30 MCHC 34.3 g/dl (32.0-35.9) 01/01/20 05:30 RDW 15.4 % (11.9-15.9) 01/01/20 05:30 Plt Count 238 K/MM3 (134-434) 01/01/20 05:30 MPV 8.2 fl (7.5-11.1) 01/01/20 05:30 CMP Sodium 137 mmol/L (136-145) 01/01/20 05:30 Potassium 3.3 mmol/L (3.5-5.1) L 01/01/20 05:30 Chloride 103 mmol/L (98-107) 01/01/20 05:30 Carbon Dioxide 26 mmol/L (21-32) 01/01/20 05:30 Anion Gap 8 MMOL/L (8-16) 01/01/20 05:30 BUN 9.5 mg/dL (7-18) 01/01/20 05:30 Creatinine 0.9 mg/dL (0.55-1.3) 01/01/20 05:30 Random Glucose 122 mg/dL (74-106) H 01/01/20 05:30 Calcium 8.1 mg/dL (8.5-10.1) L 01/01/20 05:30 Total Bilirubin 0.4 mg/dL (0.2-1) 01/01/20 05:30 AST 29 U/L (15-37) 01/01/20 05:30 ALT 24 U/L (13-61) 01/01/20 05:30 Alkaline Phosphatase 108 U/L (45-117) 01/01/20 05:30 Total Protein 6.4 g/dl (6.4-8.2) 01/01/20 05:30 Albumin 3.0 g/dl (3.4-5.0) L 01/01/20 05:30 CARDIAC ENZYMES Creatine Kinase 210 U/L (26-308) 12/29/19 18:54 Troponin I < 0.02 ng/ml (0.00-0.05) 12/30/19 05:30 Current Medications Generic Name Dose Route Start Last Admin Trade Name Faustinoq PRN Reason Stop Dose Admin Aspirin 81 mg 12/31/19 10:30 01/02/20 09:57 Ecotrin - PO 81 mg DAILY SUZANNE Administration Atorvastatin Calcium 80 mg 12/30/19 22:00 01/01/20 21:48 Lipitor - PO 80 mg HS SUZANNE Administration Colchicine 0.6 mg 12/31/19 10:00 01/02/20 09:57 Colcrys PO 0.6 mg DAILY SUZANNE Administration Folic Acid 1 mg 12/30/19 10:00 01/02/20 09:57 Folic Acid - PO 1 mg DAILY SUZANNE Administration Heparin Sodium (Porcine) 5,000 unit 12/30/19 06:00 01/02/20 05:49 Heparin - SQ 5,000 unit TID SUZANNE Administration Multivitamins/Minerals/Vitamin C 1 tab 12/30/19 10:00 01/02/20 09:57 Tab-A-Vit - PO 1 tab DAILY SUZANNE Administration Pdpbm-6-Vxgs Ethyl Esters 2 gm 12/30/19 22:00 01/02/20 09:57 Lovaza - PO 2 gm BID SUZANNE Administration Potassium Chloride 20 meq 01/01/20 22:00 01/02/20 09:57 K-Dur - PO 01/02/20 21:59 20 meq BID SUZANNE Administration Thiamine HCl 100 mg 12/30/19 10:00 01/02/20 09:57 Vitamin B1 - PO 100 mg DAILY SUZANNE Administration Home Medications Medication Instructions Recorded Multivitamins [Multivit ([facility] 1 tab PO DAILY 03/19/16 Formulary)] Naproxen [Naprosyn -] 500 mg PO BID tablet 11/21/16 Amlodipine Besylate/Benazepril 1 tab PO DAILY 02/12/19 [Lotrel 10-20 mg Capsule] Atorvastatin Calcium 80 mg PO DAILY 02/12/19 Colchicine [Colcrys] 0.6 mg PO DAILY 12/30/19 [place]-3 Acid Ethyl Esters [Lovaza 2 g PO BID 12/30/19 -] EKG: sinus tachy with PAcs with RBB , left anterior fascicular block , Bifascicular block. renal US: no evidence of hydronephrosis or acute pathology ECHO: normal , trace TR CT head negative for acute pathology hemoglobin A1c= 5.4 ASSESSMENT AND PLAN: Patient is a 69yom with PMHx of HTN, HLD, preDM, alcohol abuse, gout, presenting for syncopal episode. #Syncope : likely Vasovagal, no orthostatics, carotid doppler, fall precautions Carotid duplex: moderate size plaques at the right common carotid bifurcation/ bulb and proximal internal carotid artery without evidence of hemodynamically significant stenosis , moderate size plaques at the left common carotid bifurcation/bulb and proximal internal carotid artery without evidence of hemodynamically significant stenosis. CTA: Prominant plaques with calcifications at left common carotid bifurc.buld with 50% narrowing of the lumen , hemodynamically significant stenosis. As per dr Bedoya continue medical management for further care. #PVcs due to electrolyte abnormalities, continue potassium supplement and mg needs to be above 2.2, continue Kdur # BROOK : Cr 1.7-->1.2-->1.0--0.9 improved , US renal Normal , hold home naproxen #HLD: continue atorvastatin 80mg daily # Gout: no acute flares DVT PPX: heparin sq As per Cardio: outpatient follow up with cardio -no additional inpatient cardiac testing is needed at this time, as per cardio -recommended outpatient fup and consideration for longer term event monitoring
--- NOTE | 2020-01-02 10:52 | PN ---
Progress Note (short form) - Note Progress Note: 69 year old male history of HTN,HLD,PreDM, Alcohol abuse, gout . He came to hospital for episode of passing out , very brief, regained consiousness . He denies any cancer, trauma, fever. THere is no other focal neuological syptoms. Scott has similar episode in psat and work up did not find any significant issue. Patient denies any tonic clonic activity, tongue bite or post ictal confusion. He did have fecal incontinence. Patient has ct head whith was unremarkable patient has right ica 50 percent stenosis, patient is waiting for vascular surgeon . NEUROLOGICAL EXAMINATION Alert oriented x 3, speech is normal, afebrile, vss, neck is supple eomi,pupil reactive no face asymmetry, face sensation is normal moving all ext 5/5 all ex,t no rigidity or abnormal movement sensation is normal ct head is unremarkable cta of neck was reviewed eeg pending vascular consult pending for right ica 50 percent stenosis Assessment/Plan 69 year old male history of HTN,HLD,PreDM, Alcohol abuse, gout, came with syncopal episode, normal neuro exam and ct head unrmrakable. Unlikley to be siezure or tia. Most likey Syncope carotid stenosis 50 percent , most likley incidental, unlikley to be surgical candidate , waiting for vascula rsurgery. Plan: eeg is pending no need for AED, Continue current work up Thanking you so much Brian Castillo MD
[2020-01-02] MEDS ORDERED: POTASSIUM CHLORIDE TABS 20 MEQ TABLET.ER (FP) PO ONE ×2 (11:07→11:24)
[2020-01-02 11:32] VITALS: BP 106/70; PULSE 85; TEMP 98.1
--- NOTE | 2020-01-02 12:41 | DS ---
Physical Exam: SUBJECTIVE: Patient seen and examined at bedside.pt has no acute complaints. denies dizzinessw, n/v/headache, cp, sob OBJECTIVE: Vital Signs Period Temp Pulse Resp BP Sys/Byrd Pulse Ox Last 24 Hr 97.9 F-98.7 F 18-87 18-18 106-129/68-86 96-96 PHYSICAL EXAM GENERAL: The patient is awake, alert, and fully oriented, in no acute distress. HEAD: Normal with no signs of trauma. LUNGS: Breath sounds equal, clear to auscultation bilaterally,no accessory muscle use. HEART: Regular rate and rhythm, S1, S2 ABDOMEN: Soft, nontender, nondistended, normoactive bowel sounds, no guarding EXTREMITIES: 2+ pulses, warm, well-perfused, no edema. SKIN: Warm, dry, normal turgor, no rashes or lesions noted. LABS Laboratory Results - last 24 hr 01/01/20 01/01/20 01/02/20 16:19 21:45 05:46 POC Glucometer 130 128 128 HOSPITAL COURSE: Date of Admission:12/29/19 CTA neck: IMPRESSION: See discussion above Prominent plaques with calcifications at the left common carotid bifurcation/bulb with 50% narrowing of its lumen, hemodynamically significant stenosis. Prominent plaque with calcifications at the right common carotid bifurcation without evidence of hemodynamically significant stenosis. Small calcified plaques in the cavernous carotid artery, bilaterally. Both vertebral arteries appear unremarkable Intracranially, no gross aneurysm, focal hemodynamically significant stenosis, major artery cutoff or vascular malformation are identified. No acute intracranial pathology is identified. Multilevel degenerative disc disease, mild disc osteophyte complex and significant bilateral facet hypertrophy. Carotid Duplex: Impression: Moderate-size plaques at the right common carotid bifurcation/bulb without evidence of hemodynamically significant stenosis. Moderate-size plaques at the left common carotid bifurcation/bulb and proximal internal carotid artery without evidence of hemodynamically significant stenosis. However, there is low peak systolic velocity in the proximal left internal carotid artery of 32 cm/s . Low peak systolic velocity may be indicative of severe stenosis. Further evaluation with CTA of the neck is needed for further assessment of the degree of stenosis ASSESSMENT/PLAN: 69 yo. M PMH HTN, HLD, preDM, alcohol abuse, gout, presenting for syncopal episode. Pt states that he has been having syncopal episodes multiple times this year without physician workup. Pt had a CT head negative for acute pathology. EEG still pending results. Pt had An Echo with normal LV function, orthostatics were negative. PT was followed with neuro. pt should f/u outpt with neuro to review eeg results. pt had a carotid doppler and CTA neck which showed hemodynamically significant stenosis of L common carotid artery. Dr. Bedoya was consulted and communicated that no immediate intervention is necessary and pt should f/u outpt. Pt was monitored on tele, had PVCs and self limiting bigeminy likely 2/2 electrolyte abnormalities. electrolytes were repleted. pt was monitored by cardiology. on admission pt had BROOK which resolved. pt was advised to start asa 81. pt should continue home medications as prescribed. Date of Discharge: 01/02/20 Minutes to complete discharge: 36 Discharge Summary Problems reviewed: Yes Reason For Visit: SYNCOPE AND COLLAPSE Current Active Problems Syncope and collapse (Acute) Condition: Stable - Instructions Diet, Activity, Other Instructions: You came into the hospital after fainting. You had an echocardiogram of your heart showing normal heart function. You were evaluated by cardiology and it is recommended that you see your medical data entry clerk to be evaluated for a holter monitor. You had a Cat scan of your brain which did not show a stroke but did show a stable meningioma. You were evaluated by neurology. You had an EEG done which is still pending results. You had an ultrasound of your carotid arteries which showed that you have a blockage of your artery. You were started on baby aspirin. Please take aspirin 81 mg daily. Please continue your home medications as prescribed Please follow up with your primary care physician to follow up with your chronic medical conditions in 1 week Please follow up with your medical data entry clerk, Dr. Bravo to set you up with a holter monitor in 1 week Please follow up with your neurologist, Dr. Castillo, to review your EEGin 1 week Please follow up with your vascular surgeon, Dr. Bedoya, to monitor the blockage of your artery in your neck in 1 week If you have any new, worsening, or concerning symptoms please return to the ED or call 911. Referrals: Kervin Castillo MD [Staff Physician] - Brian Bedoya DO [Staff Physician] - Kei Bravo MD [Staff Physician] - Dixie Barragan MD [Primary Care Provider] - Disposition: HOME - Home Medications Comprehensive Discharge Medication List: Ambulatory Orders Multivitamins [Multivit ([facility] Formulary)] 1 tab PO DAILY 03/19/16 Amlodipine Besylate/Benazepril [Lotrel 10-20 mg Capsule] 1 tab PO DAILY Colchicine [Colcrys] 0.6 mg PO DAILY 12/30/19 [place]-3 Acid Ethyl Esters [Lovaza -] 2 g PO BID 12/30/19 Aspirin Coated [Ecotrin -] 81 mg PO DAILY #100 tablet.ec 01/02/20 Atorvastatin Calcium 80 mg PO DAILY #30 tablet 01/02/20 Thiamine HCl [Vitamin B1 -] 100 mg PO DAILY tablet 01/02/20 This patient is new to me today: No Emergency Visit: No Critical Care patient: No - Discharge Referral Referred to [facility] Med P.C[facility] No ATTENDING PHYSICIAN STATEMENT I saw and evaluated the patient. I reviewed the resident's note and discussed the case with the resident. I agree with the resident's findings and plan as documented. SUBJECTIVE: OBJECTIVE: ASSESSMENT AND PLAN:
== END 2020-01-02 14:58 | disposition home or self-care (01) | DRG 312 ==
LOC: SUPCPDRO 16:22 → JER 16:22 → JERBED 19:09 → J4S 23:46
PROVIDERS: ADMIT Internal Medicine; ATTEND Internal Medicine
DX: R55 Syncope and collapse (principal); N17.9 Acute kidney failure, unspecified; E87.2 Acidosis; F10.10 Alcohol abuse, uncomplicated; I10 Essential (primary) hypertension; E78.5 Hyperlipidemia, unspecified; M10.9 Gout, unspecified; I45.10 Unspecified right bundle-branch block
CPT/HCPCS: 36415; 70450-TC; 70496-TC; 70498-TC; 71045-TC-FY; 72125-TC; 72170-TC-FY; 76775-TC; 80051; 80053; 80307; 81003; 82550; 82553; 82962; 83036; 83605; 83735; 84100; 84484; 85025; 85027; 85610; 85730; 87804; 93005; 93010; 93306-TC; 93880-TC; 95816; 97116-GP; 97161-GP; 99285-25; J1644; J7030; Q9967

== ENCOUNTER 2022-09-05 16:34 | Inpatient (IN) | payer MEDICARE, OTHER ==
[2022-09-05 17:03] VITALS: BMI 28.5
[2022-09-05 19:44] LABS: BASO % 0.6 % (0-2.0); EOS % 0.1 % (0-4.5); LYMPH % 22.4 % (8-40); MCH 30.5 pg (25.7-33.7); MCHC 34.1 g/dl (32.0-35.9); MEAN CELL VOLUME 89.3 fl (80-96); MONO % 5.4 % (3.8-10.2); NEUT % 71.5 % (42.8-82.8); PLATELET COUNT 351 10^3/uL (134-434); RBC 4.25 M/mm3 (4.00-5.60); RDW 15.2 % (11.9-15.9); WHITE BLOOD COUNT 9.6 K/mm3 (4.0-10.0)
[2022-09-05 19:49] LABS: INR 1.03 (0.83-1.09); PROTHROMBIN TIME (PATIENT) 11.8 SEC (9.7-13.0)
[2022-09-05 20:01] LABS: CALCIUM 9.6 mg/dL (8.5-10.1)
[2022-09-05 20:02] LABS: ALBUMIN 3.7 g/dl (3.4-5.0); BLOOD UREA NITROGEN 21.3 mg/dL (7-18); MAGNESIUM 1.7 mg/dL (1.8-2.4)
[2022-09-05 20:05] LABS: CREATININE 1.4 mg/dL (0.55-1.3)
[2022-09-05 20:06] LABS: BILIRUBIN,TOTAL 0.5 mg/dL (0.2-1)
[2022-09-05] MEDS ORDERED: MAGNESIUM OXIDE 400 MG TABLET (FP) PO ONE (22:19)
[2022-09-05] MEDS ORDERED: MAGNESIUM OXIDE 400 MG TABLET (FP) ONE (22:27)
[2022-09-05] MEDS: LACTATED RINGERS SOLUTION 1,000 ML/1,000 ML INFUS.BAG IV SCH (22:35)
[2022-09-06] MEDS ORDERED: MAGNESIUM 1GM/D5W - 1 GM/100 ML IVPB IVPB ONE ×2 (00:16→00:44)
[2022-09-06 05:59] LABS: OPIATES, URI NEGATIVE (NEGATIVE); PHENCYCLIDINE,URINE NEGATIVE (NEGATIVE); URINE BARBITURATES NEGATIVE (NEGATIVE); URINE BENZODIAZEPINES NEGATIVE (NEGATIVE)
[2022-09-06 06:00] LABS: COCAINE, UR NEGATIVE (NEGATIVE); METHADONE, UR NEGATIVE (NEGATIVE); URINE AMPHETAMINES NEGATIVE (NEGATIVE)
[2022-09-06] MEDS: HEPARIN NA (PORCINE) 5,000 UNITS/ML 1ML VIAL SQ SCH ×3 (07:44→21:48)
[2022-09-06] MEDS ORDERED: THIAMINE HCL 100 MG TABLET (FP) ONE (09:18)
[2022-09-06] MEDS ORDERED: COLCHICINE 0.6 MG TAB ONE (09:18)
[2022-09-06] MEDS ORDERED: MULTIVITAMINS (DAILY MVI) TABLET (FP) ONE (09:18)
[2022-09-06] MEDS ORDERED: FOLIC ACID 1 MG TABLET (FP) ONE (09:18)
[2022-09-06] MEDS: MULTIVITAMINS (DAILY MVI) TABLET (FP) PO SCH (09:33)
[2022-09-06] MEDS: FOLIC ACID 1 MG TABLET (FP) PO SCH (09:33)
[2022-09-06] MEDS: THIAMINE HCL 100 MG TABLET (FP) PO SCH (09:33)
[2022-09-06] MEDS: COLCHICINE 0.6 MG CAPSULE PO SCH (09:33)
[2022-09-06] MEDS: ALLOPURINOL 300 MG TABLET (FP) PO SCH (09:33)
[2022-09-06 09:45] LABS: PH,URINE 5.5 (5.0-8.0); URINE APPEARANCE Clear; URINE BILIRUBIN Negative (NEGATIVE); URINE COLOR Yellow; URINE GLUCOSE (UA) Negative (NEGATIVE); URINE KETONE Negative (NEGATIVE); URINE LEUK ESTERASE Negative (NEGATIVE); URINE NITRITE Negative (NEGATIVE); URINE PROTEIN Negative (NEGATIVE); URINE UROBILINOGEN 0.2 mg/dL (0.2-1.0)
[2022-09-06 13:29] LABS: BASO % 0.4 % (0-2.0); EOS % 0.9 % (0-4.5); HEMATOCRIT 30.1 % (35.4-49); HEMOGLOBIN 10.1 GM/dL (11.7-16.9); LYMPH % 41.2 % (8-40); MCH 30.4 pg (25.7-33.7); MCHC 33.7 g/dl (32.0-35.9); MEAN CELL VOLUME 90.3 fl (80-96); MEAN PLT VOLUME 7.7 fl (7.5-11.1); MONO % 6.4 % (3.8-10.2); NEUT % 51.1 % (42.8-82.8); PLATELET COUNT 210 10^3/uL (134-434); RBC 3.33 M/mm3 (4.00-5.60); RDW 15.4 % (11.9-15.9); WHITE BLOOD COUNT 6.2 K/mm3 (4.0-10.0)
[2022-09-06 14:59] LABS: BLOOD UREA NITROGEN 13.2 mg/dL (7-18)
[2022-09-06 15:02] LABS: ALBUMIN 3.3 g/dl (3.4-5.0); MAGNESIUM 1.7 mg/dL (1.8-2.4)
[2022-09-06 15:04] LABS: PHOSPHOROUS 2.9 mg/dL (2.5-4.9); URIC ACID 5.3 mg/dL (2.6-7.2)
[2022-09-06 15:05] LABS: BILIRUBIN,TOTAL 0.5 mg/dL (0.2-1)
[2022-09-06 15:06] LABS: TOT PROT 6.4 g/dl (6.4-8.2)
[2022-09-06] MEDS ORDERED: FLU VACC QS2022-23(6MOS UP)/PF 60 MCG/0.5 ML SYRINGE IM ONE (18:30)
[2022-09-06] MEDS ORDERED: PNEUMOC 20-VAL CONJ-DIP CRM/PF 0.5 ML SYRINGE IM ONE (18:30)
[2022-09-06] MEDS: ATORVASTATIN CA 80 MG TABLET (FP) PO SCH (21:47)
[2022-09-06] MEDS: LACTATED RINGERS SOLUTION 1,000 ML/1,000 ML INFUS.BAG IV SCH (23:28)
[2022-09-07] MEDS: HEPARIN NA (PORCINE) 5,000 UNITS/ML 1ML VIAL SQ SCH ×3 (06:26→21:47)
[2022-09-07 08:09] LABS: BASO % 0.5 % (0-2.0); EOS % 1.1 % (0-4.5); HEMATOCRIT 38.5 % (35.4-49); HEMOGLOBIN 12.9 GM/dL (11.7-16.9); MCHC 33.4 g/dl (32.0-35.9); MEAN CELL VOLUME 89.6 fl (80-96); MEAN PLT VOLUME 7.4 fl (7.5-11.1); MONO % 5.8 % (3.8-10.2); NEUT % 37.6 % (42.8-82.8); PLATELET COUNT 364 10^3/uL (134-434); RDW 15.4 % (11.9-15.9); WHITE BLOOD COUNT 7.7 K/mm3 (4.0-10.0)
[2022-09-07 08:24] LABS: ALBUMIN 3.3 g/dl (3.4-5.0); BLOOD UREA NITROGEN 11.3 mg/dL (7-18)
[2022-09-07 08:30] LABS: BILIRUBIN,TOTAL 0.7 mg/dL (0.2-1); TOT PROT 6.6 g/dl (6.4-8.2)
[2022-09-07] MEDS: FOLIC ACID 1 MG TABLET (FP) PO SCH (10:15)
[2022-09-07] MEDS: MULTIVITAMINS (DAILY MVI) TABLET (FP) PO SCH (10:15)
[2022-09-07] MEDS: THIAMINE HCL 100 MG TABLET (FP) PO SCH (10:15)
[2022-09-07] MEDS: COLCHICINE 0.6 MG CAPSULE PO SCH (10:15)
[2022-09-07] MEDS: ALLOPURINOL 300 MG TABLET (FP) PO SCH (10:15)
[2022-09-07] MEDS: ATORVASTATIN CA 80 MG TABLET (FP) PO SCH (21:48)
[2022-09-08] MEDS: HEPARIN NA (PORCINE) 5,000 UNITS/ML 1ML VIAL SQ SCH ×3 (06:32→21:15)
[2022-09-08] MEDS: ALLOPURINOL 300 MG TABLET (FP) PO SCH (09:18)
[2022-09-08] MEDS: FOLIC ACID 1 MG TABLET (FP) PO SCH (09:18)
[2022-09-08] MEDS: MULTIVITAMINS (DAILY MVI) TABLET (FP) PO SCH (09:18)
[2022-09-08] MEDS: COLCHICINE 0.6 MG CAPSULE PO SCH (09:18)
[2022-09-08] MEDS: THIAMINE HCL 100 MG TABLET (FP) PO SCH (09:18)
[2022-09-08 18:33] VITALS: RESP 18
[2022-09-08] MEDS: ATORVASTATIN CA 80 MG TABLET (FP) PO SCH (21:15)
[2022-09-08] MEDS: LACTATED RINGERS SOLUTION 1,000 ML/1,000 ML INFUS.BAG IV SCH (21:16)
[2022-09-09] MEDS: HEPARIN NA (PORCINE) 5,000 UNITS/ML 1ML VIAL SQ SCH ×2 (06:14→14:53)
[2022-09-09] MEDS: LACTATED RINGERS SOLUTION 1,000 ML/1,000 ML INFUS.BAG IV SCH (07:24)
[2022-09-09 09:26] VITALS: BP 107/54; PULSE 54; TEMP 98.6
[2022-09-09] MEDS ORDERED: LISINOPRIL 5 MG TABLET PO SCH (10:00)
[2022-09-09] MEDS: MULTIVITAMINS (DAILY MVI) TABLET (FP) PO SCH (10:01)
[2022-09-09] MEDS: FOLIC ACID 1 MG TABLET (FP) PO SCH (10:01)
[2022-09-09] MEDS: ALLOPURINOL 300 MG TABLET (FP) PO SCH (10:01)
[2022-09-09] MEDS: COLCHICINE 0.6 MG CAPSULE PO SCH (10:02)
[2022-09-09] MEDS ORDERED: REGADENOSON 0.4 MG/5 ML PRE-FILLED SYRINGE IVPUSH ONE ×2 (12:58→13:45)
[2022-09-09] MEDS ORDERED: THIAMINE HCL 100 MG TABLET (FP) PO SCH (15:15)
[2022-09-09] MEDS: THIAMINE HCL 100 MG TABLET (FP) PO SCH (17:25)
== END 2022-09-09 18:17 | disposition home or self-care (01) | DRG 312 ==
LOC: JER 16:34 → JERBED 18:14 → J4W 09-06 13:17
PROVIDERS: ADMIT Internal Medicine
DX: R55 Syncope and collapse (principal); I45.3 Trifascicular block; F10.20 Alcohol dependence, uncomplicated; I10 Essential (primary) hypertension; N18.9 Chronic kidney disease, unspecified; E83.42 Hypomagnesemia; E78.00 Pure hypercholesterolemia, unspecified; E78.5 Hyperlipidemia, unspecified
CPT/HCPCS: 36415; 70450-TC; 71045-TC-FY; 76775-TC; 78452-TC; 80053; 80061; 80307; 81003; 82550; 82570; 82962; 83735; 84100; 84156; 84300; 84443; 84484; 84550; 85025; 85610; 85730; 87086; 90677; 93005; 93010; 93017; 93306-TC; 93880-TC; 99285-25; A9502; C9803-CS; G0008; J1644; J2785; Q2036; U0003; U0005

== ENCOUNTER 2023-09-01 09:49 | Inpatient (IN) | payer MEDICARE, OTHER ==
[2023-09-01] MEDS ORDERED: SODIUM CHLORIDE 0.9% 500 ML INFUS.BAG IV ONE (10:19)
[2023-09-01] MEDS ORDERED: ACETAMINOPHEN 1000 MG/100 ML BAG IVPB ONE ×2 (10:20→17:39)
[2023-09-01] MEDS ORDERED: FAMOTIDINE 20 MG/50 ML IVPB 20 MG/50 ML MG IVPB ONE ×2 (10:20→10:31)
[2023-09-01] MEDS ORDERED: ACETAMINOPHEN INJECTION 100 ML IVPB ONE ×2 (10:31→17:47)
[2023-09-01 11:45] LABS: BASO % 0.2 % (0-2.0); EOS % 0.1 % (0-4.5); HEMATOCRIT 40.6 % (35.4-49); HEMOGLOBIN 13.2 GM/dL (11.7-16.9); LYMPH % 11.3 % (8-40); MCH 29.3 pg (25.7-33.7); MCHC 32.5 g/dl (32.0-35.9); MONO % 0.4 % (3.8-10.2); PLATELET COUNT 326 10^3/uL (134-434); RDW 14.8 % (11.9-15.9); WHITE BLOOD COUNT 17.1 K/mm3 (4.0-10.0)
[2023-09-01 11:46] LABS: INR 1.04 (0.83-1.09); PROTHROMBIN TIME (PATIENT) 12.1 SEC (9.7-13.0)
[2023-09-01] MEDS ORDERED: TRIMETHOBENZAMIDE HCL 200MG/2ML INJ IM ONE ×2 (11:47→11:52)
[2023-09-01 11:48] LABS: CALCIUM 9.2 mg/dL (8.5-10.1)
[2023-09-01 11:49] LABS: ACTIVATED PTT 21.8 SECONDS (25.2-36.5)
[2023-09-01 11:50] LABS: ALBUMIN 3.7 g/dl (3.4-5.0); BLOOD UREA NITROGEN 14.5 mg/dL (7-18)
[2023-09-01 11:54] LABS: BILIRUBIN,TOTAL 1.4 mg/dL (0.2-1); TOT PROT 7.1 g/dl (6.4-8.2)
[2023-09-01 12:00] LABS: CREATININE 1.3 mg/dL (0.55-1.3)
[2023-09-01 12:28] LABS: LACTIC ACID 5.7 mmol/L (0.4-2.0)
[2023-09-01] MEDS ORDERED: morphine CARPU-JECT 4 MG/1 ML DISP.SYRIN IVPUSH ONE (12:40)
[2023-09-01] MEDS ORDERED: morphine SULFATE 4 MG/ML VIAL ONE (12:42)
[2023-09-01 13:17] LABS: EPI CELLS 18 /uL (0-25.1); HYALINE CASTS 0 /uL (0-3.1); PH,URINE 7.5 (5.0-8.0); URINE APPEARANCE CLEAR; URINE BACTERIA 760 /uL (0-1359); URINE BILIRUBIN NEGATIVE (NEGATIVE); URINE COLOR YELLOW; URINE GLUCOSE (UA) NEGATIVE (NEGATIVE); URINE KETONE NEGATIVE (NEGATIVE); URINE LEUK ESTERASE 3+ (NEGATIVE); URINE NITRITE NEGATIVE (NEGATIVE); URINE PROTEIN NEGATIVE (NEGATIVE); URINE UROBILINOGEN 0.2 mg/dL (0.2-1.0); URINE WBC 29 /uL (0-25.8)
[2023-09-01 13:22] LABS: URINE RBC 50 /uL (0-23.9)
[2023-09-01] MEDS ORDERED: POTASSIUM CHLORIDE ORAL LIQUID 20 MEQ/15 ML PO ONE (13:43)
[2023-09-01] MEDS ORDERED: KCL 10 MEQ IVPB 10 MEQ/100 ML INFUS.BAG IVPB SCH (13:45)
[2023-09-01] MEDS ORDERED: POTASSIUM CHLORIDE ORAL LIQUID 20 MEQ/15 ML ONE (13:48)
[2023-09-01] MEDS ORDERED: KCL 10 MEQ IVPB 10 MEQ/100 ML INFUS.BAG IVPB ONE (13:51)
[2023-09-01] MEDS ORDERED: MEROPENEM 1 GM in DEXTROSE 5%-WATER 100 ML IVPB ONE (14:36)
[2023-09-01] MEDS ORDERED: MEROPENEM 1 GM VIAL (RESTRICTED TO ID) IVPB ONE (14:41)
[2023-09-01 15:40] LABS: MAGNESIUM 1.4 mg/dL (1.8-2.4)
[2023-09-01] MEDS ORDERED: MAGNESIUM SULFATE IN WATER 2 GM/50 ML IVPB IVPB ONE ×2 (15:56→17:48)
[2023-09-01 16:38] LABS: LACTIC ACID 5.4 mmol/L (0.4-2.0)
[2023-09-01] MEDS ORDERED: LACTATED RINGERS SOLUTION 1,000 ML/1,000 ML INFUS.BAG IV SCH (17:15)
[2023-09-01] MEDS ORDERED: ONDANSETRON 4 MG/2 ML VIAL IVPUSH PRN (17:16)
[2023-09-01] MEDS: AZTREONAM 1 GM in DEXTROSE 5%-WATER - 50 ML IVPB SCH (22:18)
[2023-09-02] MEDS: AZTREONAM 1 GM in DEXTROSE 5%-WATER - 50 ML IVPB SCH ×3 (03:07→12:26)
[2023-09-02 03:45] VITALS: BMI 29.0
[2023-09-02 07:21] LABS: HEMATOCRIT 35.1 % (35.4-49); HEMOGLOBIN 11.7 GM/dL (11.7-16.9); MCH 29.8 pg (25.7-33.7); MCHC 33.2 g/dl (32.0-35.9); MEAN CELL VOLUME 89.6 fl (80-96); MEAN PLT VOLUME 7.8 fl (7.5-11.1); PLATELET COUNT 241 10^3/uL (134-434); RBC 3.92 M/mm3 (4.00-5.60); WHITE BLOOD COUNT 22.8 K/mm3 (4.0-10.0)
[2023-09-02 07:56] LABS: POTASSIUM 3.1 mmol/L (3.5-5.1)
[2023-09-02 07:57] LABS: BLOOD UREA NITROGEN 13.8 mg/dL (7-18)
[2023-09-02 08:01] LABS: CREATININE 1.2 mg/dL (0.55-1.3)
[2023-09-02 08:12] LABS: BILIRUBIN,DIRECT 3.3 mg/dL (0.0-0.2); TOT PROT 5.6 g/dl (6.4-8.2)
[2023-09-02 08:23] LABS: CALCIUM 7.7 mg/dL (8.5-10.1)
[2023-09-02 08:24] LABS: ALBUMIN 2.8 g/dl (3.4-5.0); BILIRUBIN,TOTAL 4.2 mg/dL (0.2-1)
[2023-09-02 09:01] LABS: ANISOCYTOSIS 1+; MACROCYTOSIS 0
[2023-09-02] MEDS ORDERED: PIPERACILLIN/TAZOB 3.375 GM 3.375 GM in DEXTROSE 5%-WATER - 50 ML IVPB SCH ×2 (10:00→18:00)
[2023-09-02] MEDS ORDERED: FLU VACCINE (FLULAVAL) PF 60 MCG/0.5 ML SYRINGE 2023-2024 IM ONE (10:00)
[2023-09-02] MEDS ORDERED: ONDANSETRON 4 MG/2 ML VIAL IVPUSH PRN (12:27)
[2023-09-02] MEDS ORDERED: PROMETHAZINE HCL 25 MG/1 ML VIAL IVPB PRN (12:27)
[2023-09-02] MEDS ORDERED: LACTATED RINGERS SOLUTION 1,000 ML IV SCH (12:30)
[2023-09-02] MEDS ORDERED: ETOMIDATE 20 MG/10 ML VIAL IVPUSH ONE (13:11)
[2023-09-02] MEDS ORDERED: FENTANYL CITRATE/PF 50 MCG/ML VIAL ONE ×2 (13:12)
[2023-09-02] MEDS: MEROPENEM 1 GM in DEXTROSE 5%-WATER 100 ML IVPB SCH ×2 (13:35→18:17)
[2023-09-02] MEDS: KCL 10 MEQ IVPB 10 MEQ/100 ML INFUS.BAG IVPB SCH ×2 (14:35→16:34)
[2023-09-02 15:51] VITALS: PULSE 94; RESP 20
[2023-09-02] MEDS ORDERED: DEXTROSE 5%-LACTATED RINGERS 1,000 ML IV SCH (16:00)
[2023-09-02] MEDS ORDERED: POTASSIUM CHLORIDE TABS 20 MEQ TABLET.ER (FP) PO ONE (16:34)
[2023-09-02 17:39] VITALS: BP 105/63; TEMP 98.7
== END 2023-09-02 18:54 | disposition short-term general hospital (02) | DRG 445 ==
LOC: JER 09:49 → JERBED 15:40 → J4W 18:47
PROVIDERS: ADMIT Internal Medicine; ATTEND Internal Medicine
PROC: BF18YZZ Fluoroscopy of Pancreatic Ducts using Other Contrast (ICD-10-PCS; 2023-09-02)
PROC: 0F7D8DZ Dilation of Pancreatic Duct with Intraluminal Device, Via Natural or Artificial Opening Endoscopic (ICD-10-PCS; principal; 2023-09-02 13:45)
DX: K80.43 Calculus of bile duct with acute cholecystitis with obstruction (principal); R17 Unspecified jaundice; R78.81 Bacteremia; I10 Essential (primary) hypertension; K83.8 Other specified diseases of biliary tract; E78.5 Hyperlipidemia, unspecified; E87.6 Hypokalemia; F10.90 Alcohol use, unspecified, uncomplicated; E83.42 Hypomagnesemia; M10.9 Gout, unspecified
CPT/HCPCS: 0241U-QW; 36415; 71045-TC-FY; 74174-TC; 74181-TC; 74330-TC; 76705-TC; 80048; 80053; 80076; 81003; 82150; 83605; 83690; 83735; 84484; 85025; 85610; 85730; 86850; 86900; 86901; 87040; 87086; 87186; 90686; 93005; 93010; 93306-TC; 99285-25; G0008

== ENCOUNTER 2024-06-21 15:45 | Emergency (ER) | payer MEDICARE, OTHER ==
[2024-06-21 16:58] VITALS: PULSE 86; RESP 16; TEMP 98.1; BMI 30.7
[2024-06-21] MEDS ORDERED: DIPHTH,PERTUSS(ACELL),TET 0.5 ML DISP.SYRIN IM ONE (17:15)
[2024-06-21 17:45] LABS: BASO % 0.9 % (0-2.0); EOS % 0.5 % (0-4.5); HEMATOCRIT 38.2 % (35.4-49); HEMOGLOBIN 12.9 GM/dL (11.7-16.9); LYMPH % 29.5 % (8-40); MCHC 33.6 g/dl (32.0-35.9); MEAN CELL VOLUME 89.2 fl (80-96); MEAN PLT VOLUME 7.2 fl (7.5-11.1); MONO % 6.8 % (3.8-10.2); NEUT % 62.3 % (42.8-82.8); PLATELET COUNT 331 10^3/uL (134-434); RBC 4.29 M/mm3 (4.00-5.60); RDW 15.4 % (11.9-15.9); WHITE BLOOD COUNT 7.6 K/mm3 (4.0-10.0)
[2024-06-21] MEDS: DIPHTH,PERTUSS(ACELL),TET 0.5 ML DISP.SYRIN IM ONE (18:04)
[2024-06-21 18:12] LABS: INR 1.04 (0.83-1.09); PROTHROMBIN TIME (PATIENT) 11.9 SEC (9.7-13.0)
[2024-06-21 18:30] LABS: POTASSIUM 5.8 mmol/L (3.5-5.1)
[2024-06-21 18:35] LABS: CREATININE 1.8 mg/dL (0.55-1.3)
[2024-06-21] MEDS: LACTATED RINGERS SOLUTION 1000 ML INFUS.BAG IV ONE (19:10)
[2024-06-21 21:38] VITALS: BP 136/74
[2024-06-21 22:00] LABS: POTASSIUM 3.5 mmol/L (3.5-5.1)
[2024-06-21 22:01] LABS: BLOOD UREA NITROGEN 11.1 mg/dL (7-18); CALCIUM 8.9 mg/dL (8.5-10.1)
[2024-06-21 22:06] LABS: CREATININE 1.2 mg/dL (0.55-1.3)
== END 2024-06-21 22:45 | disposition home or self-care (01) ==
LOC: JER 15:45
PROC: 0HQ1XZZ Repair Face Skin, External Approach (ICD-10-PCS; principal; 2024-06-21)
PROC: 3E0234Z Introduction of Serum, Toxoid and Vaccine into Muscle, Percutaneous Approach (ICD-10-PCS; 2024-06-21)
DX: S01.81XA Laceration without foreign body of other part of head, initial encounter (principal); R55 Syncope and collapse; W19.XXXA Unspecified fall, initial encounter; Z23 Encounter for immunization
CPT/HCPCS: 12011-25; 36415; 70450-TC; 80048; 82962; 84484; 85025; 85610; 86850; 86900; 86901; 90471; 90715; 93005; 93010; 99285-25